=== PATIENT | female | born 1995 | race American Indian/Alaskan Native ===

== ENCOUNTER 2017-04-30 00:34 | Emergency (ER) | payer MEDICAID ==
[2017-04-30 02:48] LABS: Basophils % (Auto) 0.7 % (0.0-1.8); Eosinophils % (Auto) 0.9 % (0.0-4.3); Hematocrit 37.9 % (30.3-42.9); Hemoglobin 12.8 gm/dl (10.1-14.3); Mean Corpuscular HGB Conc 34 % (30-34); Mean Corpuscular Hemoglobin 31 pg (28-32); Mean Corpuscular Volume 92 fl (79-97); Platelet Count 280 K/mm3 (140-440); Red Blood Count 4.13 M/mm3 (3.65-5.03); Red Cell Distribution Width 13.1 % (13.2-15.2); White Blood Count 7.4 K/mm3 (4.5-11.0)
--- NOTE | 2017-04-30 04:24 | Ultrasound Report ---
FINAL REPORT PROCEDURE: US OB \T\lt; = 14 WEEKS FETUS TECHNIQUE: Real-time transabdominal sonography of the uterus, placenta, amniotic fluid, adnexa, and fetus was performed with image documentation. Measurements were obtained to determine age/size. M-mode Doppler was used to document heartbeat. CPT 90289 HISTORY: vag bleed COMPARISON: No prior studies are available for comparison. FINDINGS: There is a sac-like structure in the endometrium measuring 18.8 millimeters in diameter. There is no pole or yolk sac. The mean sac diameter corresponds to an estimated gestational age of 6 weeks and 6 days. The right ovary measures 2.5 x 1.5 x 1.3 centimeters. The left ovary measures 2.4 x 2 x 2.5 centimeters. There is no ovarian mass. There is no free pelvic fluid. The uterus measures 9.2 x 4.9 x 6.4 centimeters. IMPRESSION: There is an intrauterine gestational sac. However, no pole or yolk sac is seen. This could be an abnormal . Followup beta HCG measurements and/or ultrasound suggested.
--- NOTE | 2017-04-30 04:28 | Ultrasound Report ---
FINAL REPORT PROCEDURE: US OB TRANSVAGINAL TECHNIQUE: Real-time transvaginal sonography of the uterus, placenta, amniotic fluid, adnexa, and fetus was performed with image documentation. Measurements were obtained to determine age/size. M-mode Doppler was used to document heartbeat. HISTORY: vag bleed COMPARISON: No prior studies are available for comparison. FINDINGS: There is a sac-like structure in the endometrium measuring 18.8 millimeters in diameter. There is no pole or yolk sac. The mean sac diameter corresponds to an estimated gestational age of 6 weeks and 6 days. The right ovary measures 2.5 x 1.5 x 1.3 centimeters. The left ovary measures 2.4 x 2 x 2.5 centimeters. There is no ovarian mass. There is no free pelvic fluid. The uterus measures 9.2 x 4.9 x 6.4 centimeters. IMPRESSION: There is an intrauterine gestational sac. However, no pole or yolk sac is seen. This could be an abnormal . Followup beta HCG measurements and/or ultrasound suggested.
[2017-04-30 04:37] LABS: Bilirubin,Urine NEG (Negative); Blood,Urine MOD (Negative); Ketones,Urine NEG (Negative); Leukocyte Esterase,Urine NEG (Negative); Mucus,Urine 2+ /HPF; Nitrite,Urine NEG (Negative); Urobilinogen,Urine < 2.0 mg/dL (<2.0)
[2017-04-30 06:44] VITALS: BP 103/56
--- NOTE | 2017-04-30 07:17 | Emergency Department Report ---
HPI - General Chief Complaint: Vaginal Bleeding Time Seen by Provider: 04/30/17 07:04 - HPI HPI: Room 26 The patient is a 21-year-old female presented with a chief complaint of vaginal bleeding. The patient is and states all at work last night at 23:00 she noticed a gush of vaginal bleeding. Patient denies passing any tissue. Patient denies having abdominal pain. Patient currently denies any complaints Location: Genitourinary system Duration: [see above] Quality: Painless Severity: Moderate Modifying factors: [see above] Context: [see above] Mode of transportation: Unknown ED Past Medical Hx - Past Medical History Previous Medical History?: Yes Hx Diabetes: Yes (with ) Hx Asthma: Yes - Surgical History Past Surgical History?: Yes Additional Surgical History: EYE SURGERY - Family History Family history: no significant - Social History Smoking Status: Never Smoker Substance Use Type: None (denies illicit drug use) - Medications Home Medications: Home Medications Medication Instructions Recorded Confirmed Last Taken Type Pnv95/Ferrous Fumarate/FA 1 each PO QDAY 11/05/15 06/23/16 05/20/16 09:00 History [ Caplet] 1 Albuterol Sulfate [Albuterol 0.63% 0.63 mg IH TID PRN 05/22/16 06/23/16 12:00 History NEBS] 1 Valacyclovir HCl [Valtrex] 1,000 mg PO QDAY 06/23/16 06/23/16 Unknown History ED Review of Systems ROS: Stated complaint: VAGINAL BLEEDING Other details as noted in HPI Comment: All other systems reviewed and negative Constitutional: denies: chills, fever Eyes: denies: eye pain, eye discharge, vision change ENT: denies: ear pain, throat pain Respiratory: denies: cough, shortness of breath, wheezing Cardiovascular: denies: chest pain, palpitations Endocrine: no symptoms reported Gastrointestinal: denies: abdominal pain, nausea, diarrhea Genitourinary: abnormal menses. denies: urgency, dysuria, discharge Musculoskeletal: denies: joint swelling, arthralgia Skin: denies: rash, lesions Neurological: denies: headache, weakness, paresthesias Psychiatric: denies: anxiety, depression Hematological/Lymphatic: denies: easy bleeding, easy bruising Physical Exam - Physical Exam Vital Signs: Vital Signs 09/04/30/17 04/30/17 01:25 02:03 06:42 Temperature 98.0 F 98.0 F Pulse Rate 81 81 Respiratory 18 18 16 Rate Blood Pressure 118/61 118/61 Blood Pressure [Left] O2 Sat by Pulse 100 100 100 Oximetry 04/30/17 06:43 Temperature Pulse Rate 64 Respiratory 16 Rate Blood Pressure Blood Pressure 103/56 [Left] O2 Sat by Pulse 100 Oximetry Physical Exam: GENERAL: The patient is well-developed well-nourished female lying on stretcher not appearing to be in acute distress. [] HEENT: Normocephalic. Atraumatic. Extraocular motions are intact. Patient has moist mucous membranes. NECK: Supple. Trachea midline CHEST/LUNGS: Clear to auscultation. There is no respiratory distress noted. HEART/CARDIOVASCULAR: Regular. There is no tachycardia. There is no gallop rub or murmur. ABDOMEN: Abdomen is soft, nontender. Patient has normal bowel sounds. There is no abdominal distention. SKIN: There is no rash. There is no edema. There is no diaphoresis. NEURO: The patient is awake, alert, and oriented. The patient is cooperative. The patient has normal speech MUSCULOSKELETAL: There is no evidence of acute injury. ED Course Vital Signs 04/30/17 04/30/17 04/30/17 01:25 02:03 06:42 Temperature 98.0 F 98.0 F Pulse Rate 81 81 Respiratory 18 18 16 Rate Blood Pressure 118/61 118/61 Blood Pressure [Left] O2 Sat by Pulse 100 100 100 Oximetry 04/30/17 06:43 Temperature Pulse Rate 64 Respiratory 16 Rate Blood Pressure Blood Pressure 103/56 [Left] O2 Sat by Pulse 100 Oximetry ED Medical Decision Making - Lab Data Result diagrams: 04/30/17 02:15 Laboratory Tests 04/30/17 04/30/17 04/30/17 02:15 02:15 02:15 WBC 7.4 RBC 4.13 Hgb 12.8 Hct 37.9 MCV 92 MCH 31 MCHC 34 RDW 13.1 L Plt Count 280 Lymph % (Auto) 40.4 H [place] % (Auto) 6.6 Eos % (Auto) 0.9 Baso % (Auto) 0.7 Lymph # 3.0 [place] # 0.5 Eos # 0.1 Baso # 0.1 Seg Neutrophils % 51.4 Seg Neutrophils # 3.8 HCG, Quant 9069 H Urine Color Urine Turbidity Urine pH Ur Specific [place] Urine Protein Urine Glucose (UA) Urine Ketones Urine Blood Urine Nitrite Urine Bilirubin Urine Urobilinogen Ur Leukocyte Esterase Urine WBC (Auto) Urine RBC (Auto) U Epithel Cells (Auto) Urine Mucus Blood Type B POSITIVE Antibody Screen Negative 04/30/17 Unknown WBC RBC Hgb Hct MCV MCH MCHC RDW Plt Count Lymph % (Auto) [place] % (Auto) Eos % (Auto) Baso % (Auto) Lymph # [place] # Eos # Baso # Seg Neutrophils % Seg Neutrophils # HCG, Quant Urine Color Yellow Urine Turbidity Clear Urine pH 6.0 Ur Specific [place] 1.023 Urine Protein 30 mg/dl Urine Glucose (UA) Neg Urine Ketones Neg Urine Blood Mod Urine Nitrite Neg Urine Bilirubin Neg Urine Urobilinogen < 2.0 Ur Leukocyte Esterase Neg Urine WBC (Auto) 2.0 Urine RBC (Auto) 2.0 U Epithel Cells (Auto) 14.0 H Urine Mucus 2+ Blood Type Antibody Screen - Radiology Data Radiology results: report reviewed (pelvic ultrasound), image reviewed (pelvic ultrasound) Pelvic ultrasound (read by radiologist)-there is an intrauterine gestational sac. However no pole or yolk sac is seen. This could be an abnormal . Follow-up beta hCG measurements and/or ultrasound suggested. - Differential Diagnosis threatened , spontaneous , missed , ectopic pregnan Critical care attestation.: If time is entered above; I have spent that time in minutes in the direct care of this critically ill patient, excluding procedure time. ED Disposition Clinical Impression: Threatened Disposition: -01 TO HOME OR SELFCARE Is pt being admited?: No Does the pt Need Aspirin: No Condition: Stable Instructions: Threatened Miscarriage (ED) Additional Instructions: Return to the emergency department immediately should you develop worsening symptoms, fever, inability to tolerate food or liquid or any other concerns. Referrals: ERICA HERNANDEZ MD [Staff Physician] - 3-5 Days Time of Disposition: 07:19
== END 2017-04-30 07:50 | disposition home or self-care (01) ==
LOC: ED 00:34
DX: O20.0 Threatened abortion (principal); Z3A.01 Less than 8 weeks gestation of pregnancy; J45.909 Unspecified asthma, uncomplicated
CPT/HCPCS: 36415; 76801; 76817; 81001; 84702; 85025; 86850; 86900; 86901

== ENCOUNTER 2017-05-04 01:57 | Emergency (ER) | payer MEDICAID ==
[2017-05-04 03:07] LABS: Basophils % (Auto) 0.5 % (0.0-1.8); Eosinophils % (Auto) 0.6 % (0.0-4.3); Hematocrit 37.2 % (30.3-42.9); Hemoglobin 12.6 gm/dl (10.1-14.3); Mean Corpuscular HGB Conc 34 % (30-34); Mean Corpuscular Hemoglobin 31 pg (28-32); Mean Corpuscular Volume 92 fl (79-97); Platelet Count 258 K/mm3 (140-440); Red Blood Count 4.06 M/mm3 (3.65-5.03); Red Cell Distribution Width 12.7 % (13.2-15.2)
[2017-05-04 04:38] LABS: Anion Gap 15 mmol/L; Blood Urea Nitrogen 8 mg/dL (7-17); Calcium 8.6 mg/dL (8.4-10.2); Carbon Dioxide 22 mmol/L (22-30); Chloride 98.9 mmol/L (98-107); Glucose 98 mg/dL (65-100); Potassium 3.6 mmol/L (3.6-5.0); Sodium 132 mmol/L (137-145)
--- NOTE | 2017-05-04 06:20 | Emergency Department Report ---
ED Female HPI - General Chief complaint: Vaginal Bleeding Stated complaint: VAGINAL BLEED Time Seen by Provider: 05/04/17 06:17 Source: patient, EMS Mode of arrival: Stretcher Limitations: No Limitations - History of Present Illness Initial comments: The patient was seen here a few days ago for threaten miscarriage. She followed up with [facility]. She returns for recurrent bleeding and some crampy pain. She is not bleeding at this time. She is not complaining of pain at this time. The ultrasound has already been performed which shows an incomplete AB with sac in the lower uterine segment. Patient has no history of prior . MD Complaint: vaginal bleeding -: Gradual Severity: moderate Quality: cramping Consistency: now resolved Improves with: none Worsens with: none Are you Now?: No Associated Symptoms: denies other symptoms - Related Data Sexually active: Yes Home Medications Medication Instructions Recorded Confirmed Last Taken Pnv95/Ferrous Fumarate/FA 1 each PO QDAY 11/05/15 06/23/16 05/20/16 09:00 [ Caplet] 1 Albuterol Sulfate [Albuterol 0.63% 0.63 mg IH TID PRN 05/22/16 06/23/16 12:00 NEBS] 1 Valacyclovir HCl [Valtrex] 1,000 mg PO QDAY 06/23/16 06/23/16 Unknown Previous Rx's Medication Instructions Recorded Last Taken Type HYDROcodone/APAP 5-325 [[place] 1 each PO Q6HR PRN #7 tablet 05/04/17 Unknown Rx 5/325] Allergies Allergy/AdvReac Type Severity Reaction Status Date / Time butorphanol tartrate AdvReac Itching Verified 05/04/17 02:26 [From Stadol] ibuprofen [From Motrin] AdvReac Shortness Verified 05/04/17 02:26 of Breath ED Review of Systems ROS: Stated complaint: VAGINAL BLEED Other details as noted in HPI Constitutional: denies: chills, fever Eyes: denies: eye pain, eye discharge, vision change ENT: denies: ear pain, throat pain Respiratory: denies: cough, shortness of breath, wheezing Cardiovascular: denies: chest pain, palpitations Endocrine: no symptoms reported Gastrointestinal: denies: abdominal pain, nausea, diarrhea Genitourinary: as per HPI. denies: urgency, dysuria, discharge Musculoskeletal: denies: back pain, joint swelling, arthralgia Skin: denies: rash, lesions Neurological: denies: headache, weakness, paresthesias Psychiatric: denies: anxiety, depression Hematological/Lymphatic: denies: easy bleeding, easy bruising ED Past Medical Hx - Past Medical History Previous Medical History?: Yes Hx Hypertension: No Hx Congestive Heart Failure: No Hx Diabetes: Yes (with ) Hx Deep Vein Thrombosis: No Hx Renal Disease: No Hx Sickle Cell Disease: No Hx Seizures: No Hx Asthma: Yes Hx COPD: No Hx HIV: No - Surgical History Past Surgical History?: Yes Additional Surgical History: EYE SURGERY left - Social History Smoking Status: Never Smoker Substance Use Type: None - Medications Home Medications: Home Medications Medication Instructions Recorded Confirmed Last Taken Type Pnv95/Ferrous Fumarate/FA 1 each PO QDAY 11/05/15 06/23/16 05/20/16 09:00 History [ Caplet] 1 Albuterol Sulfate [Albuterol 0.63% 0.63 mg IH TID PRN 05/22/16 06/23/16 12:00 History NEBS] 1 Valacyclovir HCl [Valtrex] 1,000 mg PO QDAY 06/23/16 06/23/16 Unknown History HYDROcodone/APAP 5-325 [[place] 1 each PO Q6HR PRN #7 tablet 05/04/17 Unknown Rx 5/325] ED Physical Exam - General Limitations: No Limitations General appearance: alert, in no apparent distress - Head Head exam: Present: atraumatic, normocephalic - Eye Eye exam: Present: normal appearance. Absent: scleral icterus - ENT ENT exam: Present: mucous membranes moist - Neck Neck exam: Present: normal inspection - Respiratory Respiratory exam: Present: normal lung sounds bilaterally. Absent: respiratory distress - Cardiovascular Cardiovascular Exam: Present: regular rate, normal rhythm. Absent: systolic murmur, diastolic murmur, rubs, gallop - GI/Abdominal GI/Abdominal exam: Present: soft, normal bowel sounds. Absent: distended, tenderness, guarding, rebound, rigid - External exam: Present: other (no active bleeding) - Extremities Exam Extremities exam: Present: normal inspection - Back Exam Back exam: Present: normal inspection - Neurological Exam Neurological exam: Present: alert, oriented X3, CN II-XII intact. Absent: motor sensory deficit - Psychiatric Psychiatric exam: Present: normal affect, normal mood - Skin Skin exam: Present: warm, dry, intact, normal color. Absent: rash ED Course Vital Signs 05/04/17 05/04/17 05/04/17 02:20 02:22 02:26 Temperature 98.1 F 98.1 F Pulse Rate 73 74 Respiratory 18 18 Rate Blood Pressure 108/39 108/39 Blood Pressure [Right] O2 Sat by Pulse 99 99 Oximetry 05/04/17 05/04/17 02:34 05:49 Temperature 98.1 F Pulse Rate 65 Respiratory 18 16 Rate Blood Pressure Blood Pressure 89/54 [Right] O2 Sat by Pulse 99 99 Oximetry - Reevaluation(s) Reevaluation #1: Patient will be given a dose of Cytotec. She is instructed to follow up with [facility]. 05/04/17 07:10 ED Medical Decision Making - Lab Data Result diagrams: 05/04/17 02:52 05/04/17 04:04 Laboratory Results - last 24 hr 05/04/17 05/04/17 05/04/17 02:25 02:52 02:52 WBC 10.0 RBC 4.06 Hgb 12.6 Hct 37.2 MCV 92 MCH 31 MCHC 34 RDW 12.7 L Plt Count 258 Lymph % (Auto) 25.7 [place] % (Auto) 6.9 Eos % (Auto) 0.6 Baso % (Auto) 0.5 Lymph # 2.6 [place] # 0.7 Eos # 0.1 Baso # 0.1 Seg Neutrophils % 66.3 Seg Neutrophils # 6.6 Sodium Potassium Chloride Carbon Dioxide Anion Gap BUN Creatinine Estimated GFR BUN/Creatinine Ratio Glucose Calcium HCG, Quant 5373 H Blood Type B POSITIVE Antibody Screen Negative 05/04/17 04:04 WBC RBC Hgb Hct MCV MCH MCHC RDW Plt Count Lymph % (Auto) [place] % (Auto) Eos % (Auto) Baso % (Auto) Lymph # [place] # Eos # Baso # Seg Neutrophils % Seg Neutrophils # Sodium 132 L Potassium 3.6 Chloride 98.9 Carbon Dioxide 22 Anion Gap 15 BUN 8 Creatinine 0.5 L Estimated GFR > 60 BUN/Creatinine Ratio 16.00 Glucose 98 Calcium 8.6 HCG, Quant Blood Type Antibody Screen Critical care attestation.: If time is entered above; I have spent that time in minutes in the direct care of this critically ill patient, excluding procedure time. ED Disposition Clinical Impression: Incomplete Disposition: DC-01 TO HOME OR SELFCARE Is pt being admited?: No Does the pt Need Aspirin: No Condition: Stable Instructions: Threatened Miscarriage (ED) Additional Instructions: Medication should cause you to pass the sac. There may be some associated bleeding. Return if you have significant bleeding or any acute changes as necessary. Otherwise follow-up with [facility] physician. Prescriptions: HYDROcodone/APAP 5-325 [[place] 5/325] 1 each PO Q6HR PRN #7 tablet PRN Reason: Pain Referrals: SRIDHAR ZARATE JR, MD [Primary Care Provider] - 3-5 Days [facility] [Provider Group] - 24 Hours Time of Disposition: 07:13
--- NOTE | 2017-05-04 06:25 | Ultrasound Report ---
FINAL REPORT EXAM: US OB TRANSVAGINAL HISTORY: w/ vag bleed TECHNIQUE: Early obstetrical ultrasound was performed. PRIORS: None. FINDINGS: There is an elongated abnormal appearing sac-like structure in the lower uterine segment. There is another cystic/cysts sac-like area in the fundus which has an irregular appearance and contains low level echoes. No pole or yolk sac seen. Appearance is suspicious for spontaneous in progress. Overall uterine dimensions are 9.8 x 4.7 x 6.2 cm. The right ovary measures 2.9 x 1.8 x 1.9 cm. The left ovary measures 3.9 x 2.2 x 2.2 cm. There is blood flow to both ovaries. There is a complex cyst in the left ovary which may be corpus luteal cyst. It measures about 1.8 cm. IMPRESSION: Findings, as described above, most likely reflect spontaneous in progress.
--- NOTE | 2017-05-04 06:28 | Ultrasound Report ---
FINAL REPORT EXAM: US OB \T\lt; = 14 WEEKS FETUS HISTORY: w/ vag bleed TECHNIQUE: Transabdominal obstetrical ultrasound read in conjunction with transvaginal study performed concurrently. PRIORS: 04/30/2017 FINDINGS: There is an elongated abnormal appearing sac-like structure in the lower uterine segment. There is another cystic/cysts sac-like area in the fundus which has an irregular appearance and contains low level echoes. No pole or yolk sac seen. Appearance is suspicious for spontaneous in progress. Overall uterine dimensions are 9.8 x 4.7 x 6.2 cm. The right ovary measures 2.9 x 1.8 x 1.9 cm. The left ovary measures 3.9 x 2.2 x 2.2 cm. There is blood flow to both ovaries. There is a complex cyst in the left ovary which may be corpus luteal cyst. It measures about 1.8 cm. IMPRESSION: Findings, as described above, are compatible with spontaneous in progress.
[2017-05-04] MEDS ORDERED: CYTOTEC PO ONE (07:03)
[2017-05-04 07:58] VITALS: BP 103/65
== END 2017-05-04 07:59 | disposition home or self-care (01) ==
LOC: ED 01:57
DX: O03.4 Incomplete spontaneous abortion without complication (principal); Z88.6 Allergy status to analgesic agent; Z88.8 Allergy status to other drugs, medicaments and biological substances
CPT/HCPCS: 36415; 76801; 76817; 80048; 84702; 85025; 86850; 86900; 86901; 99284

== ENCOUNTER 2017-08-12 13:25 | Emergency (ER) | payer SELFPAY ==
--- NOTE | 2017-08-12 20:53 | Emergency Department Report ---
Minor Respiratory - HPI Chief Complaint: Upper Respiratory Infection Stated Complaint: COUGH/CONGESTION Time Seen by Provider: 08/12/17 20:17 Duration: 5 Days Pain Location: Throat Severity: mild Minor Respiratory: Yes Rhinorrhea, Yes Sore Throat, Yes Able to Tolerate Fluids , Yes Cough, Yes Sick Contacts, No Ear Pain, No Hemoptysis, No Chest Pain, No Shortness of Breath, No Fever Other History: This is a 21 y.o female presents with congestion, cough, and runny nose. 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 She is taking tylenol cold and mucous with minimal improvement. Denies chest pain, SOB , wheezing, muscle aches, and abdominal pain. ED Review of Systems ROS: Stated complaint: COUGH/CONGESTION Other details as noted in HPI Constitutional: see HPI. denies: chills, diaphoresis, fever, malaise, weakness Eyes: denies: eye pain, eye discharge, vision change ENT: throat pain, congestion. denies: ear pain, dental pain, hearing loss, epistaxis Respiratory: see HPI, cough. denies: orthopnea, shortness of breath, SOB with exertion, SOB at rest, stridor, wheezing Cardiovascular: denies: chest pain, palpitations Gastrointestinal: denies: abdominal pain, nausea, diarrhea Musculoskeletal: denies: back pain, joint swelling, arthralgia Neurological: denies: headache, weakness, paresthesias ED Past Medical Hx - Past Medical History Previous Medical History?: Yes Hx Hypertension: No Hx Congestive Heart Failure: No Hx Diabetes: Yes (with , gestational) Hx Deep Vein Thrombosis: No Hx Renal Disease: No Hx Sickle Cell Disease: No Hx Seizures: No Hx Asthma: Yes Hx COPD: No Hx HIV: No Additional medical history: Vaginal dleivery 06-17-2016 - Surgical History Past Surgical History?: Yes Additional Surgical History: EYE SURGERY left - Social History Smoking Status: Never Smoker Substance Use Type: Alcohol, Marijuana, Prescribed - Medications Home Medications: Home Medications Medication Instructions Recorded Confirmed Last Taken Type Pnv No.95/Ferrous Fum/Folic AC 1 each PO QDAY 11/05/15 06/23/16 05/20/16 09:00 History [ Caplet] 1 Albuterol Sulfate [Albuterol 0.63% 0.63 mg IH TID PRN 05/22/16 06/23/16 12:00 History NEBS] 1 Valacyclovir HCl [Valtrex] 1,000 mg PO QDAY 06/23/16 06/23/16 Unknown History HYDROcodone/APAP 5-325 [[place] 1 each PO Q6HR PRN #7 tablet 05/04/17 Unknown Rx 5/325] Benzonatate 200 mg PO TID PRN #30 capsule 08/12/17 Unknown Rx Fluticasone [Flonase] 1 spray NS QDAY #1 bottle 08/12/17 Unknown Rx Minor Respiratory Exam - Exam General: Vital signs noted. No distress. Alert and acting appropriately. HEENT: Yes Pharyngeal Erythema, Yes Moist Mucous Membranes, Yes Rhinorrhea, No Pharyngeal Exudates (tonsils enlarged), No Conjuctival Injection, No Frontal Tenderness, No Maxillary Tenderness Ear: Neither TM Bulge, Neither TM Erythema, Neither EAC Pain, Neither EAC Discharge Neck: Yes Supple, No Adenopathy Lungs: Yes Good Air Exchange, Yes Cough, No Wheezes, No Ronchi, No Stridor, No Labored Respirations, No Retractions, No Use of Accessory Muscles, No Other Abnormal Lung Sounds Heart: Yes Regular, No Murmur Abdomen: Yes Normal Bowel Sounds, No Tenderness, No Peritoneal Signs Skin: No Rash, No Edema Neurologic: Alert and oriented, no deficits. Musculoskeletal: Unremarkable. ED Course Vital Signs 08/12/17 13:47 Temperature 98.4 F Pulse Rate 87 Respiratory 16 Rate Blood Pressure 121/75 O2 Sat by Pulse 98 Oximetry ED Medical Decision Making - Medical Decision Making 21 y.o. female presents with congestion, cough, and runny nose for 5 days. Taking tylenol cold and mucous for 3 days. Sick contacts and work. Negative influenza and rapid strep. Started on flonase and benzonate continue OTC cold & flu medicine. Discussed S/S of when to return to ER and nonpharm measures. Follow-up with PCP if symptoms worsen or exceed expected recovery. Critical care attestation.: If time is entered above; I have spent that time in minutes in the direct care of this critically ill patient, excluding procedure time. ED Disposition Clinical Impression: URI (upper respiratory infection) Qualifiers: URI type: acute nasopharyngitis (common cold) Qualified Code(s): J00 - Acute nasopharyngitis [common cold] Disposition: DC-01 TO HOME OR SELFCARE Is pt being admited?: No Does the pt Need Aspirin: No Condition: Stable Instructions: Upper Respiratory Infection (ED), Cold Symptoms (ED) Additional Instructions: Wash hands frequently. The cough can last for 2-3 weeks. Use tylenol and ibuprofen should be taken with regular fluid intake. Follow up with primary care provider. Seek medical attention if fever, headache, wheezing, or chest symptoms worsen. If drowsy or confused in the short term or if cough last longer than 4 weeks. Prescriptions: Benzonatate 200 mg PO TID PRN #30 capsule PRN Reason: Cough Fluticasone [Flonase] 1 spray NS QDAY #1 bottle Referrals: SRIDHAR ZARATE JR, MD [Primary Care Provider] - 3-5 Days [facility] [Outside] - 3-5 Days [facility] [Outside] - 3-5 Days [facility] [Outside] - 3-5 Days Forms: Work/School Release Form(ED) Time of Disposition: 22:00 Print Language: MOZAMBICAN
[2017-08-12 21:36] VITALS: BP 108/65
== END 2017-08-12 22:19 | disposition home or self-care (01) ==
LOC: ED 13:25
DX: J00 Acute nasopharyngitis [common cold] (principal); J45.909 Unspecified asthma, uncomplicated; F12.10 Cannabis abuse, uncomplicated; Z88.8 Allergy status to other drugs, medicaments and biological substances; Z88.6 Allergy status to analgesic agent
CPT/HCPCS: 87116; 87400; 87430; 99282

== ENCOUNTER 2017-09-18 09:32 | Emergency (ER) | payer OTHER ==
[2017-09-18 09:42] VITALS: BP 110/64
[2017-09-18 10:48] LABS: Bilirubin,Urine NEG (Negative); Blood,Urine NEG (Negative); Color,Urine Yellow (Yellow); Mucus,Urine 1+ /HPF; Nitrite,Urine NEG (Negative); Protein,Urine <15 mg/dL mg/dL (Negative)
[2017-09-18 10:55] LABS: HCG Qualitative,Urine Positive (Negative); WBC,Urine < 1.0 /HPF (0.0-6.0)
[2017-09-18] MEDS ORDERED: ZOFRAN IM ONE (13:17)
--- NOTE | 2017-09-18 13:22 | Emergency Department Report ---
ED Headache HPI - General Chief Complaint: Headache Stated Complaint: HEADACHE Time Seen by Provider: 09/18/17 13:12 Source: patient - History of Present Illness Initial Comments: Patient is 21 years old female, 3 para 1 with one miscarriage. History of migraine headache. Presented to the ER with his 1 day history of headache similar to previous headache associated with nausea and vomiting. Patient stated that lights bother her. Patient denied any fever, stiff neck, weakness, numbness or tingling sensation. Patient denied any bowel or bladder incontinence. Patient denied any abdominal pain or vaginal bleeding. Timing/Duration: 24 hours Quality: moderate Recent Head Trauma: no recent headache/trauma, frequent headaches, chronic headaches Modifying Factors: improves with: exposure to light. worse with: cold therapy, immobilization, medication, movement, rest, other Associated Symptoms: nausea/vomiting. denies: denies symptoms, confusion, fatigue, facial pain, fever/chills, flushing, loss of consciousness, nasal congestion, nasal drainage, numbness in legs/feet, rash, seizures, sinus infection, stiff neck, vision changes, weakness, other Allergies/Adverse Reactions: Allergies butorphanol tartrate [From Stadol] Adverse Reaction (Verified 05/04/17 02:26) Itching ibuprofen [From Motrin] Adverse Reaction (Verified 05/04/17 02:26) Shortness of Breath Home Medications: Ambulatory Orders Pnv No.95/Ferrous Fum/Folic AC [ Caplet] 1 each PO QDAY 11/05/15 Albuterol Sulfate [Albuterol 0.63% NEBS] 0.63 mg IH TID PRN 05/22/16 Valacyclovir HCl [Valtrex] 1,000 mg PO QDAY 06/23/16 HYDROcodone/APAP 5-325 [[place] 5/325] 1 each PO Q6HR PRN #7 tablet 05/04/17 Benzonatate 200 mg PO TID PRN #30 capsule 08/12/17 Fluticasone [Flonase] 1 spray NS QDAY #1 bottle 08/12/17 ED Review of Systems ROS: Stated complaint: HEADACHE Other details as noted in HPI Comment: All other systems reviewed and negative Constitutional: denies: chills, fever ENT: denies: ear pain Respiratory: denies: cough, orthopnea Gastrointestinal: denies: abdominal pain, nausea, vomiting, diarrhea, constipation Neurological: headache. denies: weakness, numbness, paresthesias ED Past Medical Hx - Past Medical History Previous Medical History?: Yes Hx Hypertension: No Hx Congestive Heart Failure: No Hx Diabetes: Yes (with , gestational) Hx Deep Vein Thrombosis: No Hx Renal Disease: No Hx Sickle Cell Disease: No Hx Seizures: No Hx Asthma: Yes Hx COPD: No Hx HIV: No Additional medical history: Vaginal dleivery 06-17-2016 - Surgical History Past Surgical History?: Yes Additional Surgical History: EYE SURGERY left - Social History Smoking Status: Former Smoker Substance Use Type: Non Opiate Pain - Medications Home Medications: Home Medications Medication Instructions Recorded Confirmed Last Taken Type Pnv No.95/Ferrous Fum/Folic AC 1 each PO QDAY 11/05/15 06/23/16 05/20/16 09:00 History [ Caplet] 1 Albuterol Sulfate [Albuterol 0.63% 0.63 mg IH TID PRN 05/22/16 06/23/16 12:00 History NEBS] 1 Valacyclovir HCl [Valtrex] 1,000 mg PO QDAY 06/23/16 06/23/16 Unknown History HYDROcodone/APAP 5-325 [[place] 1 each PO Q6HR PRN #7 tablet 05/04/17 Unknown Rx 5/325] Benzonatate 200 mg PO TID PRN #30 capsule 08/12/17 Unknown Rx Fluticasone [Flonase] 1 spray NS QDAY #1 bottle 08/12/17 Unknown Rx ED Physical Exam - General Limitations: No Limitations General appearance: alert, in no apparent distress - Head Head exam: Present: atraumatic, normocephalic - ENT ENT exam: Present: normal exam - Neck Neck exam: Present: normal inspection, full ROM, lymphadenopathy. Absent: tenderness, meningismus - Respiratory Respiratory exam: Present: normal lung sounds bilaterally. Absent: respiratory distress, wheezes, rales - Cardiovascular Cardiovascular Exam: Present: regular rate, normal rhythm, normal heart sounds - GI/Abdominal GI/Abdominal exam: Present: soft, normal bowel sounds. Absent: distended, tenderness, guarding, rebound, rigid, organomegaly, mass, bruit, pulsatile mass , hernia - Back Exam Back exam: Present: normal inspection, full ROM. Absent: tenderness, CVA tenderness (R), CVA tenderness (L) - Neurological Exam Neurological exam: Present: alert, oriented X3, CN II-XII intact, normal gait - Skin Skin exam: Present: warm, intact, normal color. Absent: cyanosis ED Course Vital Signs 09/18/17 09:39 Temperature 98.2 F Pulse Rate 98 H Respiratory 20 Rate Blood Pressure 110/64 O2 Sat by Pulse 99 Oximetry Critical care attestation.: If time is entered above; I have spent that time in minutes in the direct care of this critically ill patient, excluding procedure time. ED Disposition Clinical Impression: Migraine headache, Disposition: DC-01 TO HOME OR SELFCARE Is pt being admited?: No Condition: Stable Instructions: Migraine Headache (ED), (ED) Referrals: SRIDHAR ZARATE JR, MD [Primary Care Provider] - 3-5 Days
[2017-09-18] MEDS ORDERED: TYLENOL PO ONE (13:23)
== END 2017-09-18 13:39 | disposition home or self-care (01) ==
LOC: ED 09:32
DX: O26.899 Other specified pregnancy related conditions, unspecified trimester (principal); G43.909 Migraine, unspecified, not intractable, without status migrainosus; O99.519 Diseases of the respiratory system complicating pregnancy, unspecified trimester; Z87.891 Personal history of nicotine dependence; Z88.8 Allergy status to other drugs, medicaments and biological substances
CPT/HCPCS: 81001; 81025; 96372; 99283; J2405

== ENCOUNTER 2018-03-21 10:42 | Outpatient (CLI) | payer MEDICAID ==
[2018-03-21 11:29] VITALS: BP 113/65
[2018-03-21 13:28] LABS: Bacteria,Urine 2+ /HPF (Negative); Mucus,Urine FEW /HPF
[2018-03-21 14:08] LABS: Bilirubin,Urine Negative (Negative); Blood,Urine Negative (Negative); Color,Urine Straw (Yellow)
[2018-03-21] MEDS ORDERED: LACTATED RINGERS 500 ML IV ONE (16:45)
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
== END 2018-03-21 19:30 | disposition home or self-care (01) ==
LOC: TRG 10:42 → LD 10:44 → TRG 19:30
PROVIDERS: ATTEND Obstetrics & Gynecology
DX: O47.03 False labor before 37 completed weeks of gestation, third trimester (principal); Z87.891 Personal history of nicotine dependence; Z3A.30 30 weeks gestation of pregnancy
CPT/HCPCS: 59025; 76815; 81001

== ENCOUNTER 2018-04-07 05:35 | Outpatient (CLI) | payer MEDICAID ==
[2018-04-07] MEDS ORDERED: LACTATED RINGERS 500 ML IV ONE (06:58)
[2018-04-07 07:53] LABS: Bacteria,Urine 3+ /HPF (Negative); Bilirubin,Urine NEG (Negative); Blood,Urine NEG (Negative); Color,Urine Yellow (Yellow); Protein,Urine <15 mg/dL mg/dL (Negative); Urobilinogen,Urine < 2.0 mg/dL (<2.0)
[2018-04-07] MEDS ORDERED: CELESTONE SOLUSPAN IM ONE (08:42)
[2018-04-07] MEDS ORDERED: LACTATED RINGERS 1,000 ML IV SCH (09:00)
[2018-04-07] MEDS: BRETHINE SUB-Q PRN ×3 (09:07→11:41)
[2018-04-07] MEDS ORDERED: ROCEPHIN 1,000 MG in NACL 0.9% 50 ML IV SCH (10:00)
[2018-04-07 10:02] VITALS: BP 120/64
--- NOTE | 2018-04-07 12:54 | Event Note ---
22yo 33wks 1 day managed for contractions. She was treated for a UTI with Rocephin and had received IVF. Her cervix remains unchanged. Closed/ soft/high. She has received betamethasone and her fibronectin is negative. She has a history of induction for PPROM at 36 weeks. Plan 1. G/C, GBS done. 2. Cervical recheck unchanged - explained to patient she is not in labor but will give second dose of betamethasone due to the contractions. 3. Patient will return tomorrow 9am for steroid injection. She was given labor precautions.
[2018-04-08] MEDS ORDERED: CELESTONE SOLUSPAN IM ONE (09:00)
== END 2018-04-07 13:30 | disposition home or self-care (01) ==
LOC: TRG 05:35
PROVIDERS: ATTEND Obstetrics & Gynecology
DX: O62.8 Other abnormalities of forces of labor (principal); O99.513 Diseases of the respiratory system complicating pregnancy, third trimester; J45.909 Unspecified asthma, uncomplicated; Z3A.34 34 weeks gestation of pregnancy
CPT/HCPCS: 36415; 81001; 82731; 87116; 87591; 96360; 96361; 96372; J0696; J0702; J3105; J7120

== ENCOUNTER 2018-04-08 09:29 | Outpatient (CLI) | payer MEDICAID ==
[2018-04-08] MEDS ORDERED: CELESTONE SOLUSPAN IM ONE (09:35)
--- NOTE | 2018-04-08 17:05 | Event Note ---
Date: 04/08/18 Patient here for Betamethasone injection. Received first injection yesterday here in triage when she came in for contractions at 33 weeks gestation. Pt. received injection today without adverse reaction. Patient to follow up at [facility] as scheduled this week.
== END 2018-04-08 10:00 | disposition home or self-care (01) ==
LOC: TRG 09:29
PROVIDERS: ATTEND Obstetrics & Gynecology
DX: O47.03 False labor before 37 completed weeks of gestation, third trimester (principal); O99.513 Diseases of the respiratory system complicating pregnancy, third trimester; Z3A.33 33 weeks gestation of pregnancy; Z87.891 Personal history of nicotine dependence; Z88.6 Allergy status to analgesic agent
CPT/HCPCS: 96372; J0702

== ENCOUNTER 2018-04-09 00:58 | Observation (INO) | payer MEDICAID ==
[2018-04-09] MEDS ORDERED: LACTATED RINGERS 1,000 ML IV ONE (01:22)
[2018-04-09 02:00] LABS: Bilirubin,Urine NEG (Negative); Blood,Urine NEG (Negative); Color,Urine Yellow (Yellow); Mucus,Urine FEW /HPF; Protein,Urine <15 mg/dL mg/dL (Negative); Urobilinogen,Urine < 2.0 mg/dL (<2.0)
[2018-04-09] MEDS ORDERED: BRETHINE SUB-Q ONE (05:34)
[2018-04-09] MEDS ORDERED: BRETHINE ONE (05:41)
--- NOTE | 2018-04-09 06:33 | Ultrasound Report ---
FINAL REPORT EXAM: US OB LIMITED HISTORY: CTX/VARIABLE DECELS; KAREN BPP TECHNIQUE: A limited OB sonogram was obtained for evaluation of the amniotic fluid index. FINDINGS: The fetus is in cephalic presentation. The KAREN is 12.5 cm which is normal. The placenta is anterior in position is grade 1. The heart rate is 141 BPM. IMPRESSION: Normal KAREN of 12.5 cm. The heart rate is 141 BPM.
--- NOTE | 2018-04-09 06:36 | Ultrasound Report ---
FINAL REPORT EXAM: US OB BPP WO NON-STRESS HISTORY: CTX/VARIABLE DECELS; KAREN BPP TECHNIQUE: A limited OB sonogram was performed for evaluation of the biophysical profile. FINDINGS: For breathing movements, a score of 0 out of 0 was obtained. For movements, a score of 0 out of 0 was obtained. For posture in tone, a score of 2 out of 2 was obtained. For qualitative amniotic fluid volume, a score of 2 out of 2 was obtained. The heart rate is 141 BPM. IMPRESSION: Biophysical profile score of 4 out of 8. The heart rate is 141 BPM.
[2018-04-09] MEDS ORDERED: COLACE PO PRN (07:18)
[2018-04-09] MEDS ORDERED: TYLENOL PO PRN (07:18)
[2018-04-09] MEDS ORDERED: ZOFRAN IV ONE (08:00)
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
[2018-04-09] MEDS ORDERED: PRENATAL VITAMIN PO SCH (10:00)
[2018-04-09 11:25] LABS: Amphetamine Screen,Urine PRESUMPTIVE NEGATIVE; Benzodiazepines Screen,Urine PRESUMPTIVE NEGATIVE; Cocaine Screen,Urine PRESUMPTIVE NEGATIVE; Methadone Screen,Urine PRESUMPTIVE NEGATIVE; Opiate Screen,Urine PRESUMPTIVE NEGATIVE
[2018-04-09 12:17] LABS: Cannabinoid Screen,Urine PRESUMPTIVE POSITIVE
--- NOTE | 2018-04-09 20:50 | Event Note ---
Date: 04/09/18 Patient walked to bathroom to void. A few small spots of blood seen on floor. Pt. reports "pressure" in lower pelvis and lower back and and abdominal pain. Speculum exam performed. A small amount of blood seen in posterior vagina but no active bleeding seen. SVE 1.5/75/-1. No leaking of water. No pooling of blood. Irregular contractions noted per monitor. Stat US ordered. Consulted with Dr. Martinez regarding patient and he orders to give patient Procardia 10 mg po single dose now. Procardia order put in. Will update Dr. Martinez when US result is available.
[2018-04-09] MEDS ORDERED: PROCARDIA*For Tocolysis only PO ONE (20:55)
[2018-04-09] MEDS ORDERED: PROCARDIA XL PO SCH (21:00)
--- NOTE | 2018-04-09 21:47 | Event Note ---
Date: 04/09/18 BPP 6/8 (0 for breathing movements). Patient has received Procardia 10 mg po as recommended by Dr. Martinez. Informed Dr. Martinez of BPP of 01/12 and that Procardia was given. UDS positive for marijuana. EFM continues.
--- NOTE | 2018-04-09 23:21 | Ultrasound Report ---
FINAL REPORT EXAM: US OB BPP WO NON-STRESS HISTORY: vaginal bleeding, decreased movement TECHNIQUE: Grayscale imaging was performed for the purpose of evaluating of biophysical profile. Comparison: Biophysical profile performed earlier today at 5:34 a.m. FINDINGS: heart rate is measured at 142 beats per minute. KAREN largest pocket is measured at 5.5 centimeters. For tone score 2/2 For breathing score 0/2 For movements score 2/2 For amnionic fluid score 2/2 Total biophysical profile score 6/8 IMPRESSION: 1. Biophysical profile score of 6/8. 2. heart rate is measured at 142 beats per minute.
[2018-04-10] MEDS ORDERED: ZOFRAN PO PRN (10:00)
--- NOTE | 2018-04-10 11:26 | Ultrasound Report ---
ULTRASOUND BIOPHYSICAL PROFILE: History: BPP 01/12 Technique: Transabdominal ultrasound with Doppler interrogation. 2 - breathing movements 2 - movements 2 - posture and tone 2 - Qualitative amniotic fluid volume 8 - TOTAL SCORE OF POSSIBLE 8 Heart Rate (bpm) 136
[2018-04-10 11:29] VITALS: BP 100/55
--- NOTE | 2018-04-10 14:36 | Discharge Summary ---
Providers - Providers Date of Admission: 04/10/18 08:33 Date of discharge: 04/10/18 Attending physician: BRITTANY MARTELL Primary care physician: BRITTANY MARTELL Hospitalization Reason for admission: observation Delivery: other (UNDELIVERED) Hospital course: 22yo 33wks presented for contractions and monitoring. A BPP was done revealing 4/8 (-2 breathing -2 movement). The next BPP revealed 6/8 (- 2 breathing). Today's BPP was 8/8. The patient report good movement. She will be discharged gisela with weekly BPPs in office. Condition at discharge: Stable Disposition: DC-01 TO HOME OR SELFCARE - Discharge Diagnoses (1) 33 weeks gestation of Status: Acute Plan - Provider Discharge Summary Activity: routine, other (no lifting more than 10 lbs) Diet: routine Instructions: other Additional instructions: [] Smoking cessation referral if applicable(refer to patient education folder for contact #) [] Refer to [facility] Booklet Call your doctor immediately for: * contractions every 5 min * vaginal bleeding * loss of fluid/rupture membranes * decrease movement - Follow up plan Follow up: BRITTANY MARTELL [Primary Care Provider] - 7 Days
== END 2018-04-10 16:11 | disposition home or self-care (01) ==
LOC: TRG 00:58 → LD 00:59 → TRG 00:59 → OBSVTOIN 04-10 08:33 → INTOOBSV 04-10 08:33
PROVIDERS: ADMIT Obstetrics & Gynecology; ATTEND Obstetrics & Gynecology
DX: O60.03 Preterm labor without delivery, third trimester (principal); O99.513 Diseases of the respiratory system complicating pregnancy, third trimester; J45.909 Unspecified asthma, uncomplicated; Z3A.33 33 weeks gestation of pregnancy; Z79.899 Other long term (current) drug therapy
CPT/HCPCS: 76815; 76819; 80307; 81001; 96372; 96374; G0378; J2405; J3105; J7120; Q0162

== ENCOUNTER 2018-04-12 20:21 | Observation (INO) | payer MEDICAID ==
--- NOTE | 2018-04-12 23:28 | Ultrasound Report ---
FINAL REPORT PROCEDURE: US OB BPP WO NON-STRESS TECHNIQUE: Real-time limited sonographic examination was performed for evaluation of size, position, heartbeat, fluid volume for each fetus with image documentation (1 or more fetuses). CPT 28125 HISTORY: vaginal blee ding COMPARISON: No prior studies are available for comparison. FINDINGS: Amniotic fluid index is 10.3 centimeters. Placenta is anterior and grade 2. Heart rate is 142 beats per minute. The biophysical profile: breathing movements: 2. movements: 2. posterior and tone: 2. Amniotic fluid volume: 2. Total score: 8/8. IMPRESSION: Normal biophysical profile.
--- NOTE | 2018-04-12 23:29 | Ultrasound Report ---
FINAL REPORT PROCEDURE: US OB BPP WO NON-STRESS TECHNIQUE: Real-time limited sonographic examination was performed for evaluation of size, position, heartbeat, fluid volume for each fetus with image documentation (1 or more fetuses). CPT 43888 HISTORY: vaginal blee ding COMPARISON: No prior studies are available for comparison. FINDINGS: Amniotic fluid index is 10.3 centimeters. Placenta is anterior and grade 2. Heart rate is 142 beats per minute. The biophysical profile: breathing movements: 2. movements: 2. posterior and tone: 2. Amniotic fluid volume: 2. Total score: 8/8. IMPRESSION: Normal biophysical profile.
[2018-04-13] MEDS ORDERED: BENADRYL PO PRN (01:10)
[2018-04-13] MEDS ORDERED: COLACE PO PRN (01:10)
[2018-04-13] MEDS ORDERED: TYLENOL PO PRN (01:10)
[2018-04-13] MEDS ORDERED: PROCARDIA*For Tocolysis only PO NR (01:10)
[2018-04-13] MEDS ORDERED: PROCARDIA*For Tocolysis only ONE (01:11)
[2018-04-13] MEDS ORDERED: LACTATED RINGERS 1,000 ML ONE (01:12)
--- NOTE | 2018-04-13 01:19 | History and Physical Report ---
History of Present Illness Chief complaint: vaginal spotting History of present illness: 22yo 33 6/7 weeks admitted for vaginal spotting while taking a shower. She reports good movement and no loss of fluid. She has been admitted and observed for contractions several times this . Her history is significant for PPROM at 36 weeks last . She is a patient at [facility]. Past History - Obstetrical History : 3 Medications and Allergies Allergies Allergy/AdvReac Type Severity Reaction Status Date / Time ibuprofen [From Motrin] AdvReac Severe Shortness Verified 04/08/18 09:33 of Breath butorphanol tartrate AdvReac Itching Verified 05/04/17 02:26 [From Stadol] Home Medications Medication Instructions Recorded Confirmed Last Taken Type Pnv No.95/Ferrous Fum/Folic AC 1 each PO QDAY 11/05/15 04/09/18 04/08/18 History [ Caplet] Ferrous Sulfate [Feosol] 325 mg PO QDAY 04/07/18 04/09/18 04/04/18 History Active Meds: Active Medications Acetaminophen (Tylenol) 650 mg PO Q4H PRN PRN Reason: Pain MILD(1-3)/Fever >100.5/SINGH Nifedipine (Procardia*For Tocolysis Only*) 20 mg PO ONCE NR Stop: 04/13/18 02:11 - Vital Signs Vital signs: Vital Signs Pulse BP 96 H 115/66 04/12/18 20:37 04/12/18 20:37 Temp Pulse Resp BP Pulse Ox 96 H 115/66 04/12/18 20:37 04/12/18 20:37 - Physical Exam Extremities: Positive: normal - Obstetrical Cervical Dilatation: 1 Cervical Effacement Percentage: 70 station: -3 Results All other labs normal. Assessment and Plan - Patient Problems (1) Vaginal spotting Current Visit: Yes Status: Acute Plan to address problem: Ultrasound for evaluation of placenta, KAREN, BPP Monitor for maternal bleeding (2) contractions Current Visit: Yes Status: Acute Plan to address problem: Procardia for tocolysis. Cervix remains unchanged since last admission. (3) 33 weeks gestation of Current Visit: No Status: Acute Plan to address problem: Admit for observation due to vaginal spotting, contractions and possible incidental placental verma on ultrasound.
[2018-04-13] MEDS ORDERED: LACTATED RINGERS 1,000 ML IV SCH (02:00)
[2018-04-13 05:31] VITALS: BP 94/55
[2018-04-13] MEDS ORDERED: PRENATAL VITAMIN PO SCH (10:00)
--- NOTE | 2018-04-13 10:36 | Event Note ---
Date: 04/13/18 Patient seen, stable with no issues. She is s/p BPP 03/14, cat 1 tracing and no UC 's noted on monitor. Will Discharge home now.
--- NOTE | 2018-04-13 10:38 | Discharge Summary ---
Providers - Providers Date of Admission: 04/13/18 01:39 Date of discharge: 04/13/18 Attending physician: BRITTANY MARTELL Primary care physician: BRITTANY MARTELL Hospitalization Reason for admission: observation Discharge diagnosis: other (IUP at ~ 33 wks r/o labour) Hospital course: 22yo 33 6/7 weeks admitted for vaginal spotting while taking a shower. She reports good movement and no loss of fluid. She has been admitted and observed for contractions several times this . Her history is significant for PPROM at 36 weeks last . She is a patient at [facility]. BPP was 8/8 She had no contractions on monitor and Cat 1 tracing Condition at discharge: Good Disposition: DC-01 TO HOME OR SELFCARE - Discharge Diagnoses (1) 33 weeks gestation of Status: Acute Plan - Provider Discharge Summary Activity: no sex for 6 weeks, no heavy lifting 4 weeks, no strenuous exercise Diet: routine Additional instructions: [] Smoking cessation referral if applicable(refer to patient education folder for contact #) [] Refer to [facility] Booklet Call your doctor immediately for: * Fever > 100.5 * Heavy vaginal bleeding ( >1 pad per hour) * Severe persistent headache * Shortness of breath * Reddened, hot, painful area to leg or breast * Drainage or odor from incision. * Keep incision clean and dry at all times and follow doctor's instructions regarding bathing/showering - Follow up plan Follow up: BRITTANY MARTELL [Primary Care Provider] - 7 Days
== END 2018-04-13 16:17 | disposition home or self-care (01) ==
LOC: TRG 20:21 → LD 04-13 01:39
PROVIDERS: ADMIT Obstetrics & Gynecology; ATTEND Obstetrics & Gynecology
DX: O26.853 Spotting complicating pregnancy, third trimester (principal); O60.03 Preterm labor without delivery, third trimester; Z3A.33 33 weeks gestation of pregnancy
CPT/HCPCS: 76815; 76819; G0378; J7120

== ENCOUNTER 2018-04-18 17:16 | Outpatient (CLI) | payer MEDICAID ==
[2018-04-18] MEDS ORDERED: LACTATED RINGERS 500 ML IV ONE (18:16)
[2018-04-18 18:19] VITALS: BP 141/51
[2018-04-18] MEDS ORDERED: LACTATED RINGERS 1,000 ML ONE (18:19)
[2018-04-18 18:51] LABS: Bilirubin,Urine NEG (Negative); Blood,Urine NEG (Negative); Color,Urine Yellow (Yellow); Hyaline Casts,Urine 1 /LPF; Mucus,Urine FEW /HPF; Protein,Urine <15 mg/dL mg/dL (Negative); Urobilinogen,Urine < 2.0 mg/dL (<2.0)
--- NOTE | 2018-04-18 23:14 | Ultrasound Report ---
FINAL REPORT PROCEDURE: US OB LIMITED TECHNIQUE: Real-time limited sonographic examination was performed for evaluation of placenta for each fetus with image documentation (1 or more fetuses). CPT 83745 HISTORY: labor / Vaginal Bleeding....Assess Placenta COMPARISON: No prior studies are available for comparison. FINDINGS: There is a single fetus in a vertex presentation. The placenta is along the anterior uterus. The placenta has a grade 2. There is a small area of increased vascularity in the placenta which most likely represents of placental [place]. No other irregularity is noted. No previa. heart rate 144 beats per minute. No further measurements are obtained. IMPRESSION: There is a single fetus in a vertex presentation. The placenta is along the anterior aspect of the uterus as described. No evidence of placenta previa.
== END 2018-04-19 00:49 | disposition home or self-care (01) ==
LOC: TRG 17:16
PROVIDERS: ATTEND Obstetrics & Gynecology
DX: O47.03 False labor before 37 completed weeks of gestation, third trimester (principal); O26.893 Other specified pregnancy related conditions, third trimester; O99.513 Diseases of the respiratory system complicating pregnancy, third trimester; O24.419 Gestational diabetes mellitus in pregnancy, unspecified control; J45.909 Unspecified asthma, uncomplicated; G43.909 Migraine, unspecified, not intractable, without status migrainosus; Z3A.34 34 weeks gestation of pregnancy; Z87.891 Personal history of nicotine dependence
CPT/HCPCS: 76815; 81001; J7120

== ENCOUNTER 2019-04-11 12:23 | Emergency (ER) | payer MEDICAID, OTHER ==
--- NOTE | 2019-04-11 12:46 | Emergency Department Report ---
Blank Doc - Documentation Documentation: This is a 23-year-old female that presents with n/v, dizziness, and body aches. This initial assessment/diagnostic orders/clinical plan/treatment(s) is/are subject to change based on patient's health status, clinical progression and re- assessment by fellow clinical providers in the ED. Further treatment and workup at subsequent clinical providers discretion. Patient/guardians urged not to elope from the ED as their condition may be serious if not clinically assessed and managed. Initial orders include: 1- Patient sent to [facility] for further evaluation and treatment 2- labs 3- UA
[2019-04-11 13:13] LABS: Basophils % (Auto) 0.5 % (0.0-1.8); Eosinophils % (Auto) 0.5 % (0.0-4.3); Hematocrit 42.9 % (30.3-42.9); Hemoglobin 14.2 gm/dl (10.1-14.3); Lymphocytes # (Auto) 1.6 K/mm3 (1.2-5.4); Lymphocytes % (Auto) 26.4 % (13.4-35.0); Mean Corpuscular HGB Conc 33 % (30-34); Mean Corpuscular Volume 92 fl (79-97); Monocytes # (Auto) 0.4 K/mm3 (0.0-0.8); Platelet Count 292 K/mm3 (140-440); Red Blood Count 4.68 M/mm3 (3.65-5.03); Red Cell Distribution Width 13.1 % (13.2-15.2)
[2019-04-11 13:28] LABS: Alanine Aminotransferase 8 units/L (7-56); BUN/Creatinine Ratio 12; Blood Urea Nitrogen 7 mg/dL (7-17); Calcium 9.3 mg/dL (8.4-10.2); Hemolysis Index 1
[2019-04-11] MEDS ORDERED: ZOFRAN ODT PO ONE (15:26)
[2019-04-11] MEDS ORDERED: ANTIVERT PO ONE ×2 (15:26→16:25)
[2019-04-11 16:53] VITALS: BP 117/66
--- NOTE | 2019-04-11 17:12 | Emergency Department Report ---
ED General Adult HPI - General Chief complaint: Nausea/Vomiting/Diarrhea Stated complaint: DIZZY/CANT HOLD FOOD/COLD Time Seen by Provider: 04/11/19 12:40 Source: patient Mode of arrival: Ambulatory Limitations: No Limitations - History of Present Illness Initial comments: Patient is a 23-year-old Griselda female states she's had some dizziness since last night. She's also has some nausea vomiting social with the dizziness. Patient states the dizziness as a spinning sensation is worse when she gets up to walk around her when she sitting. Patient states that she has had no fevers chills next if noticed sore throat or sinus issues. She denies any abdominal pain. - Related Data Home Medications Medication Instructions Recorded Confirmed Last Taken Pnv No.95/Ferrous Fum/Folic AC 1 each PO QDAY 11/05/15 04/26/18 04/08/18 [ Caplet] Ferrous Sulfate [Feosol] 325 mg PO QDAY 04/07/18 04/26/18 04/04/18 Previous Rx's Medication Instructions Recorded Last Taken Type Acetaminophen [Tylenol] 500 mg PO Q8HR PRN #12 tablet 07/30/18 Unknown Rx Acetaminophen [Tylenol Extra 1,000 mg PO QID PRN #30 tablet 08/04/18 Unknown Rx Strength] Metoclopramide [Reglan] 10 mg PO ACHS PRN #30 tablet 08/04/18 Unknown Rx diphenhydrAMINE [Benadryl CAP] 25 mg PO Q6HR PRN #30 capsule 08/04/18 Unknown Rx Allergies Allergy/AdvReac Type Severity Reaction Status Date / Time ibuprofen [From Motrin] AdvReac Severe Shortness Verified 04/08/18 09:33 of Breath butorphanol tartrate AdvReac Itching Verified 05/04/17 02:26 [From Stadol] ED Review of Systems ROS: Stated complaint: DIZZY/CANT HOLD FOOD/COLD Other details as noted in HPI Comment: All other systems reviewed and negative ED Past Medical Hx - Past Medical History Previous Medical History?: Yes Hx Hypertension: No Hx Congestive Heart Failure: No Hx Diabetes: No Hx Deep Vein Thrombosis: No Hx Renal Disease: No Hx Sickle Cell Disease: No Hx Seizures: No Hx Asthma: Yes (last attack years ago; inhaler prn) Hx COPD: No Hx HIV: No Additional medical history: Vaginal dleivery x 2 - Surgical History Past Surgical History?: Yes Additional Surgical History: EYE SURGERY left - Social History Smoking Status: Never Smoker Substance Use Type: Alcohol, Marijuana - Medications Home Medications: Home Medications Medication Instructions Recorded Confirmed Last Taken Type Pnv No.95/Ferrous Fum/Folic AC 1 each PO QDAY 11/05/15 04/26/18 04/08/18 History [ Caplet] Ferrous Sulfate [Feosol] 325 mg PO QDAY 04/07/18 04/26/18 04/04/18 History Acetaminophen [Tylenol] 500 mg PO Q8HR PRN #12 tablet 07/30/18 Unknown Rx Acetaminophen [Tylenol Extra 1,000 mg PO QID PRN #30 tablet 08/04/18 Unknown Rx Strength] Metoclopramide [Reglan] 10 mg PO ACHS PRN #30 tablet 08/04/18 Unknown Rx diphenhydrAMINE [Benadryl CAP] 25 mg PO Q6HR PRN #30 capsule 08/04/18 Unknown Rx ED Physical Exam - General Limitations: No Limitations General appearance: alert, in no apparent distress - Head Head exam: Present: atraumatic, normocephalic - Eye Eye exam: Present: normal appearance, PERRL, EOMI - ENT ENT exam: Present: mucous membranes moist - Neck Neck exam: Present: normal inspection - Respiratory Respiratory exam: Present: normal lung sounds bilaterally. Absent: respiratory distress, wheezes, rales, rhonchi - Cardiovascular Cardiovascular Exam: Present: regular rate, normal rhythm, normal heart sounds. Absent: systolic murmur, diastolic murmur, rubs, gallop - GI/Abdominal GI/Abdominal exam: Present: soft, normal bowel sounds. Absent: distended, tenderness, guarding, rebound, rigid - Extremities Exam Extremities exam: Present: normal inspection - Back Exam Back exam: Present: normal inspection - Neurological Exam Neurological exam: Present: alert, oriented X3, CN II-XII intact, normal gait. Absent: motor sensory deficit - Psychiatric Psychiatric exam: Present: normal affect, normal mood - Skin Skin exam: Present: warm, dry, intact, normal color. Absent: rash ED Course Vital Signs 04/11/19 04/11/19 12:40 16:49 Temperature 97.6 F 98.7 F Pulse Rate 69 66 Respiratory 18 15 Rate Blood Pressure 117/66 Blood Pressure 111/60 [Left] O2 Sat by Pulse 98 94 Oximetry ED Medical Decision Making - Lab Data Result diagrams: 04/11/19 13:04 04/11/19 13:04 Lab Results 04/11/19 04/11/19 Range/Units 13:04 13:04 WBC 6.1 (4.5-11.0) K/mm3 RBC 4.68 (3.65-5.03) M/mm3 Hgb 14.2 (10.1-14.3) gm/dl Hct 42.9 (30.3-42.9) % MCV 92 (79-97) fl MCH 30 (28-32) pg MCHC 33 (30-34) % RDW 13.1 L (13.2-15.2) % Plt Count 292 (140-440) K/mm3 Lymph % (Auto) 26.4 (13.4-35.0) % Stone % (Auto) 6.0 (0.0-7.3) % Eos % (Auto) 0.5 (0.0-4.3) % Baso % (Auto) 0.5 (0.0-1.8) % Lymph # 1.6 (1.2-5.4) K/mm3 Stone # 0.4 (0.0-0.8) K/mm3 Eos # 0.0 (0.0-0.4) K/mm3 Baso # 0.0 (0.0-0.1) K/mm3 Seg Neutrophils % 66.6 (40.0-70.0) % Seg Neutrophils # 4.1 (1.8-7.7) K/mm3 Sodium 139 (137-145) mmol/L Potassium 4.6 (3.6-5.0) mmol/L Chloride 103.4 (98-107) mmol/L Carbon Dioxide 29 (22-30) mmol/L Anion Gap 11 mmol/L BUN 7 (7-17) mg/dL Creatinine 0.6 L (0.7-1.2) mg/dL Estimated GFR > 60 ml/min BUN/Creatinine Ratio 12 % Glucose 103 H (65-100) mg/dL Calcium 9.3 (8.4-10.2) mg/dL Total Bilirubin 0.50 (0.1-1.2) mg/dL AST 14 (5-40) units/L ALT 8 (7-56) units/L Alkaline Phosphatase 83 (35-129) units/L Total Protein 7.3 (6.3-8.2) g/dL Albumin 4.0 (3.9-5) g/dL Albumin/Globulin Ratio 1.2 % Lipase 26 (13-60) units/L - Medical Decision Making Laboratory studies are within normal limits. Patient did have abnormal orthostatic vital signs. Patient was given to his IV fluids and discharged home. Critical care attestation.: If time is entered above; I have spent that time in minutes in the direct care of this critically ill patient, excluding procedure time. ED Disposition Clinical Impression: Orthostatic dizziness Disposition: DC-01 TO HOME OR SELFCARE Is pt being admited?: No Does the pt Need Aspirin: No Condition: Stable Instructions: Dehydration (ED) Referrals: SRIDHAR ZARATE JR, MD [Primary Care Provider] - 3-5 Days Time of Disposition: 17:28
[2019-04-11] MEDS ORDERED: NACL 0.9% 1000 ML 1,000 ML IV ONE ×2 (17:26)
[2019-04-11] MEDS ORDERED: NACL 0.9% 1000 ML 2,000 ML ONE (17:29)
== END 2019-04-11 18:59 | disposition home or self-care (01) ==
LOC: ED 12:23
DX: R42 Dizziness and giddiness (principal); R11.2 Nausea with vomiting, unspecified; F12.10 Cannabis abuse, uncomplicated; Z98.890 Other specified postprocedural states; Z79.899 Other long term (current) drug therapy; Z88.8 Allergy status to other drugs, medicaments and biological substances
CPT/HCPCS: 36415; 80053; 83690; 85025; 96360; 99283; J7030; Q0162

== ENCOUNTER 2019-06-18 15:07 | Emergency (ER) | payer SELFPAY ==
--- NOTE | 2019-06-18 15:32 | Event Note ---
ED Screening Note Date of service: 06/18/19 Time: 15:31 ED Screening Note: Pt complains of dizziness and N/V and SINGH x 2 days states pain 5/10-has not tried OTC meds denies fever states lower abdominal pain started first, denies urinary symptoms or vaginal bleeding LMP 04/21/19 This initial assessment/diagnostic orders/clinical plan/treatment(s) is/are subject to change based on patients health status, clinical progression and re- assessment by fellow clinical providers in the ED. Further treatment and workup at subsequent clinical providers discretion. Patient/guardian urged not to elope from the ED as their condition may be serious if not clinically assessed and managed. Initial orders include: Labs UA
[2019-06-18 15:33] VITALS: BP 105/38
[2019-06-18 16:20] LABS: Amorphous Crystals,Urine Few; Bilirubin,Urine NEG (Negative); Blood,Urine NEG (Negative); Color,Urine Yellow (Yellow); Mucus,Urine FEW /HPF; Protein,Urine <15 mg/dL mg/dL (Negative); WBC,Urine < 1.0 /HPF (0.0-6.0)
[2019-06-18 16:24] LABS: HCG Qualitative,Urine Positive (Negative)
[2019-06-18 17:11] LABS: Hematocrit 38.2 % (30.3-42.9); Mean Corpuscular HGB Conc 34 % (30-34); Mean Corpuscular Volume 92 fl (79-97); Platelet Count 280 K/mm3 (140-440); Red Blood Count 4.15 M/mm3 (3.65-5.03); Red Cell Distribution Width 13.2 % (13.2-15.2)
[2019-06-18 17:17] LABS: BUN/Creatinine Ratio 20; Blood Urea Nitrogen 8 mg/dL (7-17); Calcium 9.2 mg/dL (8.4-10.2); Hemolysis Index 11
[2019-06-18] MEDS ORDERED: SODIUM CHLORIDE 0.9% 1000 ML 1,000 ML IV ONE (18:42)
[2019-06-18] MEDS ORDERED: diphenhydrAMINE 50 MG/ML VIAL IV ONE (18:42)
[2019-06-18] MEDS ORDERED: METOCLOPRAMIDE 10 MG/2 ML INJ IV ONE (18:42)
--- NOTE | 2019-06-18 20:57 | Emergency Department Report ---
ED General Adult HPI - General Chief complaint: Abdominal Pain Stated complaint: LIGHT HEADED/DIZZY/NAUSEA/ADB PX Time Seen by Provider: 06/18/19 15:31 Source: patient Mode of arrival: Ambulatory Limitations: No Limitations - History of Present Illness Initial comments: Patient is a 23-year-old female presents emergency room with complaints of nausea and vomiting that began 2-3 days ago. She states she has associated lightheadedness and mild lower abdominal discomfort. She denies any diarrhea, fever, urinary symptoms, vaginal discharge, vaginal bleeding, any other symptoms. She states her last menstrual cycle was 04/21/19. She states she does not know she is or not. She denies any past medical history or allergies medications.. /P:2/A:1. - Related Data Home Medications Medication Instructions Recorded Confirmed Last Taken Pnv No.95/Ferrous Fum/Folic AC 1 each PO QDAY 11/05/15 04/26/18 04/08/18 [ Caplet] Ferrous Sulfate [Feosol] 325 mg PO QDAY 04/07/18 04/26/18 04/04/18 Previous Rx's Medication Instructions Recorded Last Taken Type Acetaminophen [Tylenol] 500 mg PO Q8HR PRN #12 tablet 07/30/18 Unknown Rx Acetaminophen [Tylenol Extra 1,000 mg PO QID PRN #30 tablet 08/04/18 Unknown Rx Strength] Metoclopramide [Reglan] 10 mg PO ACHS PRN #30 tablet 08/04/18 Unknown Rx diphenhydrAMINE [Benadryl CAP] 25 mg PO Q6HR PRN #30 capsule 08/04/18 Unknown Rx Allergies Allergy/AdvReac Type Severity Reaction Status Date / Time ibuprofen [From Motrin] AdvReac Severe Shortness Verified 04/08/18 09:33 of Breath butorphanol tartrate AdvReac Itching Verified 05/04/17 02:26 [From Stadol] ED Review of Systems ROS: Stated complaint: LIGHT HEADED/DIZZY/NAUSEA/ADB PX Other details as noted in HPI Comment: All other systems reviewed and negative ED Past Medical Hx - Past Medical History Previous Medical History?: Yes Hx Hypertension: No Hx Congestive Heart Failure: No Hx Diabetes: No Hx Deep Vein Thrombosis: No Hx Renal Disease: No Hx Sickle Cell Disease: No Hx Seizures: No Hx Asthma: Yes (last attack years ago; inhaler prn) Hx COPD: No Hx HIV: No Additional medical history: Vaginal dleivery x 2 - Surgical History Past Surgical History?: Yes Additional Surgical History: EYE SURGERY left - Social History Smoking Status: Never Smoker Substance Use Type: None - Medications Home Medications: Home Medications Medication Instructions Recorded Confirmed Last Taken Type Pnv No.95/Ferrous Fum/Folic AC 1 each PO QDAY 11/05/15 04/26/18 04/08/18 History [ Caplet] Ferrous Sulfate [Feosol] 325 mg PO QDAY 04/07/18 04/26/18 04/04/18 History Acetaminophen [Tylenol] 500 mg PO Q8HR PRN #12 tablet 07/30/18 Unknown Rx Acetaminophen [Tylenol Extra 1,000 mg PO QID PRN #30 tablet 08/04/18 Unknown Rx Strength] Metoclopramide [Reglan] 10 mg PO ACHS PRN #30 tablet 08/04/18 Unknown Rx diphenhydrAMINE [Benadryl CAP] 25 mg PO Q6HR PRN #30 capsule 08/04/18 Unknown Rx ED Physical Exam - General Limitations: No Limitations General appearance: alert, in no apparent distress - Head Head exam: Present: atraumatic, normocephalic - Eye Eye exam: Present: normal appearance - ENT ENT exam: Present: mucous membranes moist - Respiratory Respiratory exam: Present: normal lung sounds bilaterally. Absent: respiratory distress, wheezes, rales, rhonchi, stridor, chest wall tenderness, accessory muscle use, decreased breath sounds, prolonged expiratory - Cardiovascular Cardiovascular Exam: Present: regular rate, normal rhythm, normal heart sounds. Absent: systolic murmur, diastolic murmur, rubs, gallop - GI/Abdominal GI/Abdominal exam: Present: soft, normal bowel sounds. Absent: distended, tenderness, guarding, rebound, rigid - Back Exam Back exam: Absent: CVA tenderness (R), CVA tenderness (L) - Neurological Exam Neurological exam: Present: alert, oriented X3 - Psychiatric Psychiatric exam: Present: normal affect, normal mood - Skin Skin exam: Present: warm, dry, intact ED Course Vital Signs 06/18/19 15:31 Temperature 98.3 F Pulse Rate 79 Blood Pressure 105/38 ED Medical Decision Making - Lab Data Result diagrams: 06/18/19 16:43 06/18/19 16:43 Lab Results 06/18/19 06/18/19 06/18/19 Range/Units 15:51 16:43 16:43 WBC 9.0 (4.5-11.0) K/mm3 RBC 4.15 (3.65-5.03) M/mm3 Hgb 13.0 (10.1-14.3) gm/dl Hct 38.2 (30.3-42.9) % MCV 92 (79-97) fl MCH 31 (28-32) pg MCHC 34 (30-34) % RDW 13.2 (13.2-15.2) % Plt Count 280 (140-440) K/mm3 Sodium 135 L (137-145) mmol/L Potassium 4.3 (3.6-5.0) mmol/L Chloride 102.1 (98-107) mmol/L Carbon Dioxide 20 L (22-30) mmol/L Anion Gap 17 mmol/L BUN 8 (7-17) mg/dL Creatinine 0.4 L (0.7-1.2) mg/dL Estimated GFR > 60 ml/min BUN/Creatinine Ratio 20 % Glucose 87 (65-100) mg/dL Calcium 9.2 (8.4-10.2) mg/dL Lipase 31 (13-60) units/L HCG, Quant (0-4) mIU/mL Urine Color Yellow (Yellow) Urine Turbidity Clear (Clear) Urine pH 6.0 (5.0-7.0) Ur Specific [place] 1.020 (1.003-1.030) Urine Protein <15 mg/dl (Negative) mg/dL Urine Glucose (UA) Neg (Negative) mg/dL Urine Ketones Neg (Negative) mg/dL Urine Blood Neg (Negative) Urine Nitrite Neg (Negative) Urine Bilirubin Neg (Negative) Urine Urobilinogen 2.0 (<2.0) mg/dL Ur Leukocyte Esterase Neg (Negative) Urine WBC (Auto) < 1.0 (0.0-6.0) /HPF Urine RBC (Auto) 4.0 (0.0-6.0) /HPF U Epithel Cells (Auto) 1.0 (0-13.0) /HPF Amorphous Crystals Few Urine Mucus Few /HPF Urine HCG, Qual Positive A (Negative) 06/18/19 Range/Units 19:06 WBC (4.5-11.0) K/mm3 RBC (3.65-5.03) M/mm3 Hgb (10.1-14.3) gm/dl Hct (30.3-42.9) % MCV (79-97) fl MCH (28-32) pg MCHC (30-34) % RDW (13.2-15.2) % Plt Count (140-440) K/mm3 Sodium (137-145) mmol/L Potassium (3.6-5.0) mmol/L Chloride (98-107) mmol/L Carbon Dioxide (22-30) mmol/L Anion Gap mmol/L BUN (7-17) mg/dL Creatinine (0.7-1.2) mg/dL Estimated GFR ml/min BUN/Creatinine Ratio % Glucose (65-100) mg/dL Calcium (8.4-10.2) mg/dL Lipase (13-60) units/L HCG, Quant [id number] H (0-4) mIU/mL Urine Color (Yellow) Urine Turbidity (Clear) Urine pH (5.0-7.0) Ur Specific [place] (1.003-1.030) Urine Protein (Negative) mg/dL Urine Glucose (UA) (Negative) mg/dL Urine Ketones (Negative) mg/dL Urine Blood (Negative) Urine Nitrite (Negative) Urine Bilirubin (Negative) Urine Urobilinogen (<2.0) mg/dL Ur Leukocyte Esterase (Negative) Urine WBC (Auto) (0.0-6.0) /HPF Urine RBC (Auto) (0.0-6.0) /HPF U Epithel Cells (Auto) (0-13.0) /HPF Amorphous Crystals Urine Mucus /HPF Urine HCG, Qual (Negative) - Radiology Data Radiology results: report reviewed ULTRASOUND OBSTETRIC INDICATION / CLINICAL INFORMATION: , abd pain. Clinical Gestational Age (GA): 8 weeks 2 days TECHNIQUE: Transabdominal and Transvaginal. COMPARISON: None available. FINDINGS: The uterus is retroverted and retroflexed. GESTATIONAL SAC: Well-defined oval shape and intrauterine in location. YOLK SAC: No significant abnormality. EMBRYO/FETUS: No significant abnormality. - [place]-Rump Length = 1.8 cm = 8 weeks, 2 day(s). - Heart Rate, beats per minute (if present) = 169 ADNEXA: No significant abnormality. FREE FLUID: Trace pelvic free fluid. ADDITIONAL FINDINGS: None. IMPRESSION: 1. Single, living intrauterine with estimated sonographic age of 8 weeks, 2 day(s). Signer Name: Andie Montana MD Signed: 06/18/2019 11:21 PM Workstation Name: [id number] Transcribed By: [facility] Dictated By: Andie Montana MD Electronically Authenticated By: Andie Montana MD Signed Date/Time: 06/18/192320 DD/ 13 TD/TT: - Medical Decision Making Patient is a 23-year-old female presents emergency room with complaints of nausea and vomiting that began 2-3 days ago. She states she has associated lightheadedness and mild lower abdominal discomfort. She denies any diarrhea, fever, urinary symptoms, vaginal discharge, vaginal bleeding, any other symptoms. She states her last menstrual cycle was 04/21/19. She states she does not know she is or not. She denies any past medical history or allergies medications.. /P:2/A:1. vitals recorded on sheet are stable. no abd tenderness or CVAT on exam. CBC and BMP are stable. hcg quant [id number]. UA without evidence of UTI. OB US shows: 1. Single, living intrauterine with estimated sonographic age of 8 weeks, 2 day(s). Patient given fluids and nausea medications and had no further episodes of nausea and vomiting while in the ED and was able tolerate by mouth intake. Advised patient to please increase her fluid intake over the next several days. Discussed with patient to begin taking a vitamin [id number]. Advised patient to follow up with her [employer] in the next 2-3 days to receive her care. Advised patient to return to the emergency room for any new or worsening symptoms - Differential Diagnosis IUP, hyperemesis, ectopic, UTI, dehydration, placenta abruption Critical care attestation.: If time is entered above; I have spent that time in minutes in the direct care of this critically ill patient, excluding procedure time. ED Disposition Clinical Impression: Nausea and vomiting during Abdominal pain during Qualifiers: Trimester: first trimester Qualified Code(s): O26.891 - Other specified preg milly related conditions, first trimester Disposition: DC-01 TO HOME OR SELFCARE Is pt being admited?: No Does the pt Need Aspirin: No Condition: Stable Instructions: Morning Sickness (ED), Abdominal Pain in (ED) Referrals: PRIMARY CARE, [Primary Care Provider] - 2-3 Days Time of Disposition: 13:33 Print Language: SETSWANA
--- NOTE | 2019-06-19 01:14 | Ultrasound Report ---
ULTRASOUND OBSTETRIC INDICATION / CLINICAL INFORMATION: , abd pain. Clinical Gestational Age (GA): 8 weeks 2 days TECHNIQUE: Transabdominal and Transvaginal. COMPARISON: None available. FINDINGS: The uterus is retroverted and retroflexed. GESTATIONAL SAC: Well-defined oval shape and intrauterine in location. YOLK SAC: No significant abnormality. EMBRYO/FETUS: No significant abnormality. - [place]-Rump Length = 1.8 cm = 8 weeks, 2 day(s). - Heart Rate, beats per minute (if present) = 169 ADNEXA: No significant abnormality. FREE FLUID: Trace pelvic free fluid. ADDITIONAL FINDINGS: None. IMPRESSION: 1. Single, living intrauterine with estimated sonographic age of 8 weeks, 2 day(s). Signer Name: Andie Montana MD Signed: 06/18/2019 11:21 PM Workstation Name: [id number]
--- NOTE | 2019-06-19 01:14 | Ultrasound Report ---
ULTRASOUND OBSTETRIC INDICATION / CLINICAL INFORMATION: , abd pain. Clinical Gestational Age (GA): 8 weeks 2 days TECHNIQUE: Transabdominal and Transvaginal. COMPARISON: None available. FINDINGS: The uterus is retroverted and retroflexed. GESTATIONAL SAC: Well-defined oval shape and intrauterine in location. YOLK SAC: No significant abnormality. EMBRYO/FETUS: No significant abnormality. - [place]Rump Length = 1.8 cm = 8 weeks, 2 day(s). - Heart Rate, beats per minute (if present) = 169 ADNEXA: No significant abnormality. FREE FLUID: Trace pelvic free fluid. ADDITIONAL FINDINGS: None. IMPRESSION: 1. Single, living intrauterine with estimated sonographic age of 8 weeks, 2 day(s). Signer Name: Andie Montana MD Signed: 06/18/2019 11:21 PM Workstation Name: [id number]
== END 2019-06-19 01:30 | disposition home or self-care (01) ==
LOC: ED 15:07
DX: R11.2 Nausea with vomiting, unspecified (principal); R42 Dizziness and giddiness; J45.909 Unspecified asthma, uncomplicated; Z88.6 Allergy status to analgesic agent; Z88.8 Allergy status to other drugs, medicaments and biological substances
CPT/HCPCS: 36415; 76801; 76817; 80048; 81001; 81025; 83690; 84702; 85027; J1200; J2765; J7030; 96361; 96374; 96375

== ENCOUNTER 2019-08-09 18:54 | Emergency (ER) | payer SELFPAY ==
--- NOTE | 2019-08-09 22:15 | Event Note ---
ED Screening Note Date of service: 08/09/19 Time: 22:13 ED Screening Note: 23 y o 15 weeks gestation presents for syncopal episode This initial assessment/diagnostic orders/clinical plan/treatment(s) is/are subject to change based on patients health status, clinical progression and re-assessment by fellow clinical providers in the ED. Further treatment and workup at subsequent clinical providers discretion. Patient/guardian urged not to elope from the ED as their condition may be serious if not clinically assessed and managed. Initial orders include: cbc,ua, upt,cmp
[2019-08-09] MEDS ORDERED: SODIUM CHLORIDE 0.9% 1000 ML 1,000 ML IV ONE (22:48)
[2019-08-09] MEDS ORDERED: ACETAMINOPHEN 500 MG TAB PO ONE (23:16)
[2019-08-10] LABS: Alanine Aminotransferase 8 units/L (7-56); BUN/Creatinine Ratio 10; Blood Urea Nitrogen 4 mg/dL (7-17); Calcium 9.1 mg/dL (8.4-10.2)
[2019-08-10 00:01] LABS: Albumin 3.9 g/dL (3.9-5); Basophils % (Auto) 0.2 % (0.0-1.8); Eosinophils % (Auto) 0.4 % (0.0-4.3); Hematocrit 36.9 % (30.3-42.9); Hemoglobin 12.4 gm/dl (10.1-14.3); Hemolysis Index 0; Lymphocytes # (Auto) 1.9 K/mm3 (1.2-5.4); Lymphocytes % (Auto) 27.1 % (13.4-35.0); Mean Corpuscular HGB Conc 34 % (30-34); Mean Corpuscular Volume 93 fl (79-97); Mean Platelet Volume 7.2 fl (6-12); Monocytes # (Auto) 0.6 K/mm3 (0.0-0.8); Monocytes % (Auto) 8.2 % (0.0-7.3); Platelet Count 324 K/mm3 (140-440); Red Blood Count 3.99 M/mm3 (3.65-5.03); Red Cell Distribution Width 13.3 % (13.2-15.2)
[2019-08-10 00:41] LABS: HCG Qualitative,Urine Positive (Negative)
[2019-08-10 00:59] LABS: Bilirubin,Urine NEG (Negative); Color,Urine Yellow (Yellow)
[2019-08-10 01:01] LABS: Blood,Urine NEG (Negative); Protein,Urine <15 mg/dL mg/dL (Negative); Urobilinogen,Urine < 2.0 mg/dL (<2.0)
[2019-08-10 01:02] LABS: Mucus,Urine Few /HPF
[2019-08-10 01:03] LABS: Ictotest,Urine NEG (Negative)
--- NOTE | 2019-08-10 01:55 | Emergency Department Report ---
ED General Adult HPI - General Chief complaint: Syncope Stated complaint: HEADACHE/SYNCOPE Source: patient Mode of arrival: Ambulatory Limitations: No Limitations - History of Present Illness Initial comments: Patient is a A0 23-year-old -[place] female who is approximately 15 weeks gestation and who presented to the ED with acute onset persistent lightheadedness, headache and a single episode of syncope 6 hours ago at home while walking to the bathroom from her bedroom. Patient states that she was asleep and woke up to go to the bathroom when she felt lightheaded and had a syncopal episode, and woke up on the floor. Patient states that she is unsure as to how long she lost consciousness since no one else witnessed the event. Patient states that she has been having persistent headache in the frontal scalp since falling on the floor. Patient denies dizziness, change in vision, nausea, vomiting, chest pain, shortness of breath, fever, chills, cough, abdominal pain, vaginal bleeding, vaginal discharge, dysuria, nasal and sinus congestion, sore throat and palpitations. Patient admits to not drinking enough water and that she stood up fast from the bed to go to the bathroom. MD Complaint: lightheadedness; syncope and headache -: Sudden, hour(s) (6) Location: head Radiation: non-radiation Severity scale (0 -10): 6 Quality: aching, sharp Consistency: constant Improves with: none Worsens with: none Associated Symptoms: denies other symptoms, headaches, syncope. denies: confusion, chest pain, cough, diaphoresis, fever/chills, loss of appetite, malaise, nausea/vomiting, rash, seizure, shortness of breath, weakness Treatments Prior to Arrival: none - Related Data Home Medications Medication Instructions Recorded Confirmed Last Taken Pnv No.95/Ferrous Fum/Folic AC 1 each PO QDAY 11/05/15 04/26/18 04/08/18 [ Caplet] Ferrous Sulfate [Feosol] 325 mg PO QDAY 04/07/18 04/26/18 04/04/18 Previous Rx's Medication Instructions Recorded Last Taken Type Acetaminophen [Tylenol] 500 mg PO Q8HR PRN #12 tablet 07/30/18 Unknown Rx Acetaminophen [Tylenol Extra 1,000 mg PO QID PRN #30 tablet 08/04/18 Unknown Rx Strength] Metoclopramide [Reglan] 10 mg PO ACHS PRN #30 tablet 08/04/18 Unknown Rx diphenhydrAMINE [Benadryl CAP] 25 mg PO Q6HR PRN #30 capsule 08/04/18 Unknown Rx Acetaminophen [Acetaminophen TAB] 500 mg PO Q6HR PRN #24 tablet 08/10/19 Unknown Rx Allergies Allergy/AdvReac Type Severity Reaction Status Date / Time ibuprofen [From Motrin] AdvReac Severe Shortness Verified 04/08/18 09:33 of Breath butorphanol tartrate AdvReac Itching Verified 05/04/17 02:26 [From Stadol] ED Review of Systems ROS: Stated complaint: HEADACHE/SYNCOPE Other details as noted in HPI Constitutional: denies: chills, fever Eyes: denies: eye pain, eye discharge, vision change ENT: denies: ear pain, throat pain Respiratory: denies: cough, shortness of breath, wheezing Cardiovascular: denies: chest pain, palpitations Endocrine: no symptoms reported Gastrointestinal: denies: abdominal pain, nausea, vomiting, diarrhea Genitourinary: denies: urgency, dysuria, discharge Musculoskeletal: denies: back pain, joint swelling, arthralgia Skin: denies: rash, lesions Neurological: headache, other (lightheadedness, syncope). denies: weakness, paresthesias Psychiatric: denies: anxiety, depression Hematological/Lymphatic: denies: easy bleeding, easy bruising ED Past Medical Hx - Past Medical History Previous Medical History?: Yes Hx Hypertension: No Hx Congestive Heart Failure: No Hx Diabetes: No Hx Deep Vein Thrombosis: No Hx Renal Disease: No Hx Sickle Cell Disease: No Hx Seizures: No Hx Asthma: Yes (last attack years ago; inhaler prn) Hx COPD: No Hx HIV: No Additional medical history: Vaginal dleivery x 2 - Surgical History Past Surgical History?: Yes Additional Surgical History: EYE SURGERY left - Social History Smoking Status: Never Smoker Substance Use Type: None - Medications Home Medications: Home Medications Medication Instructions Recorded Confirmed Last Taken Type Pnv No.95/Ferrous Fum/Folic AC 1 each PO QDAY 11/05/15 04/26/18 04/08/18 History [ Caplet] Ferrous Sulfate [Feosol] 325 mg PO QDAY 04/07/18 04/26/18 04/04/18 History Acetaminophen [Tylenol] 500 mg PO Q8HR PRN #12 tablet 07/30/18 Unknown Rx Acetaminophen [Tylenol Extra 1,000 mg PO QID PRN #30 tablet 08/04/18 Unknown Rx Strength] Metoclopramide [Reglan] 10 mg PO ACHS PRN #30 tablet 08/04/18 Unknown Rx diphenhydrAMINE [Benadryl CAP] 25 mg PO Q6HR PRN #30 capsule 08/04/18 Unknown Rx Acetaminophen [Acetaminophen TAB] 500 mg PO Q6HR PRN #24 tablet 08/10/19 Unknown Rx ED Physical Exam - General Limitations: No Limitations General appearance: alert, in no apparent distress - Head Head exam: Present: atraumatic, normocephalic, normal inspection - Eye Eye exam: Present: normal appearance, PERRL, EOMI Pupils: Present: normal accommodation - ENT ENT exam: Present: normal exam, normal orophraynx, mucous membranes moist, TM's normal bilaterally, normal external ear exam - Neck Neck exam: Present: normal inspection, full ROM. Absent: tenderness, meni ngismus, lymphadenopathy - Respiratory Respiratory exam: Present: normal lung sounds bilaterally. Absent: respiratory distress, wheezes, rhonchi, stridor, chest wall tenderness, decreased breath sounds, prolonged expiratory - Cardiovascular Cardiovascular Exam: Present: regular rate, normal rhythm, normal heart sounds. Absent: systolic murmur, diastolic murmur, rubs, gallop - GI/Abdominal GI/Abdominal exam: Present: soft, normal bowel sounds. Absent: distended, tenderness, hypoactive bowel sounds - Extremities Exam Extremities exam: Present: normal inspection, full ROM, normal capillary refill - Back Exam Back exam: Present: normal inspection, full ROM. Absent: tenderness, muscle spasm, paraspinal tenderness - Neurological Exam Neurological exam: Present: alert, oriented X3, CN II-XII intact, normal gait, reflexes normal - Psychiatric Psychiatric exam: Present: normal affect, normal mood - Skin Skin exam: Present: warm, dry, intact, normal color. Absent: rash ED Course Vital Signs 08/09/19 08/09/19 08/10/19 19:25 23:23 02:31 Temperature 98.6 F Pulse Rate 84 Pulse Rate [ 75 Sitting] Respiratory 18 18 Rate Blood Pressure 109/62 Blood Pressure 111/50 [Sitting] O2 Sat by Pulse 100 Oximetry ED Medical Decision Making - Lab Data Result diagrams: 08/09/19 22:41 08/09/19 22:41 - Radiology Data Radiology results: report reviewed, image reviewed Findings [facility] [address] [place] [address] Ultrasound Report Signed Patient: AKILA CANADA MR#: [id number] : 1995 Acct:[id number] Age/Sex: 23 / F ADM Date: 08/09/19 Loc: ED Attending Dr: Ordering Physician: PREET NOVAK Date of Service: 08/10/19 Procedure(s): US OB >= 14 weeks Fetus Accession Number(s): [id number] cc: PREET NOVAK ULTRASOUND OBSTETRIC, 08/10/2019 CLINICAL INFORMATION/INDICATION: History of cramping after fall. COMPARISON: Obstetrical ultrasound, 06/18/2019 FINDINGS: There is a single intrauterine . BPD = 3.1 cm = 15 weeks, 6 day(s). Head circumference = 11.4 cm = 15 weeks, 4 day(s). Abdominal circumference = 9.5 cm = 15 weeks, 4 day(s). Femur length = 1.9 cm = 15 weeks, 3 day(s). Overall estimated sonographic age = 15 weeks, 4 day(s). heart rate is 153 beats per minute. position is cephalic. Placenta is left lateral and grade 0 . Amniotic fluid volume within normal limits. Impression: 1. Single living intrauterine with estimated sonographic age of 15 weeks, 4 day(s). Signer Name: Gricelda Monroy MD Signed: 08/10/2019 4:04 AM Workstation Name: [id number] Transcribed By: TRENA Dictated By: Gricelda Monroy MD Electronically Authenticated By: Gricelda Monroy MD Signed Date/Time: 08/10/19403 DD/ 0 - Medical Decision Making This is a 23-year-old female who is approximately 15 weeks gestation and presented to the ED with persistent headache, lightheadedness and a single episode of syncope. In the ED, patient is alert and oriented 3 and is not in distress with normal vital signs. Lab test results are nonactionable including urinalysis and troponin levels. Patient was treated in the ED with Tylenol and also given normal saline 1 L IV bolus. The pelvic ultrasound shows a single living intrauterine with estimated sonographic age of 15 weeks, 4 day(s) and heart tones of 153 bpm. the EKG shows normal sinus rhythm with ventricular rate of [address] or T-wave abnormalities or pathological Q waves. The orthostatic vital signs are normal. On reevaluation, patient felt better with the treatment, and lightheadedness and headache resolved. Patient's symptoms are likely due to her status, and vasovagal syncope as well as possible dehydration. Patient was advised to take Tylenol as needed for headache and to drink plenty of fluids and follow-up with [facility] [employer] physician in 5- 7 days for reevaluation. Patient was advised to return to the emergency department. Immediately if symptoms get worse. - Differential Diagnosis lightheadedness; tension headache; syncope; Critical care attestation.: If time is entered above; I have spent that time in minutes in the direct care of this critically ill patient, excluding procedure time. ED Disposition Clinical Impression: Syncope, vasovagal, Positional lightheadedness, Syncope due to orthostatic hypotension Disposition: DC-01 TO HOME OR SELFCARE Is pt being admited?: No Does the pt Need Aspirin: No Condition: Stable Instructions: Syncope (ED), Lightheadedness (ED) Additional Instructions: Take Tylenol as needed for pain, plenty of fluids and follow-up with your [facility] physician in 5-7 days for reevaluation. Return to the ED immediately if symptoms get worse. Prescriptions: Acetaminophen [Acetaminophen TAB] 500 mg PO Q6HR PRN #24 tablet PRN Reason: Pain , Severe (7-10) Referrals: ERICA HERNANDEZ MD [Staff Physician] - 3-5 Days Time of Disposition: 02:00 Print Language: [place] LEONE[place]
[2019-08-10 02:32] VITALS: BP 111/50
--- NOTE | 2019-08-10 04:08 | Ultrasound Report ---
ULTRASOUND OBSTETRIC, 08/10/2019 CLINICAL INFORMATION/INDICATION: History of cramping after fall. COMPARISON: Obstetrical ultrasound, 06/18/2019 FINDINGS: There is a single intrauterine . BPD = 3.1 cm = 15 weeks, 6 day(s). Head circumference = 11.4 cm = 15 weeks, 4 day(s). Abdominal circumference = 9.5 cm = 15 weeks, 4 day(s). Femur length = 1.9 cm = 15 weeks, 3 day(s). Overall estimated sonographic age = 15 weeks, 4 day(s). heart rate is 153 beats per minute. position is cephalic. Placenta is left lateral and grade 0 . Amniotic fluid volume within normal limits. Impression: 1. Single living intrauterine with estimated sonographic age of 15 weeks, 4 day(s). Signer Name: Gricelda Monroy MD Signed: 08/10/2019 4:04 AM Workstation Name: [id number]
== END 2019-08-10 04:37 | disposition home or self-care (01) ==
LOC: ED 18:54
DX: O26.892 Other specified pregnancy related conditions, second trimester (principal); R55 Syncope and collapse; R42 Dizziness and giddiness; Z98.890 Other specified postprocedural states; Z79.899 Other long term (current) drug therapy; Z88.6 Allergy status to analgesic agent; Z87.09 Personal history of other diseases of the respiratory system; Z88.8 Allergy status to other drugs, medicaments and biological substances; Z3A.15 15 weeks gestation of pregnancy
CPT/HCPCS: 36415; 76805; 80053; 81001; 81025; 84484; 85025; 93005; 93010; 96360; 99284; J7030

== ENCOUNTER 2019-10-11 17:46 | Observation (INO) | payer MEDICAID ==
[2019-10-11] MEDS ORDERED: LACTATED RINGERS 1,000 ML IV SCH (20:00)
--- NOTE | 2019-10-11 22:03 | Ultrasound Report ---
US OB limited INDICATION / CLINICAL INFORMATION: PLACENTA PREVIA C/O CONTRACTIONS AND LEAKING. COMPARISON: None available. FINDINGS: Single, viable intrauterine in cephalic presentation. heart rate 142. Placenta is posterior and free of the cervical os. Amniotic fluid volume is within normal limits, with a fluid index of 9.5 cm. IMPRESSION: 1. Single, viable intrauterine . 2. No evidence of placenta previa. Signer Name: Melo Guallpa MD Signed: 10/11/2019 9:59 PM Workstation Name: [id number]
[2019-10-11] MEDS ORDERED: DOCUSATE SODIUM 100 MG CAP PO PRN (23:41)
[2019-10-11] MEDS ORDERED: fentaNYL 100 MCG/2 ML INJ IV PRN (23:53)
[2019-10-12] MEDS: LACTATED RINGERS 1,000 ML IV SCH ×3 (00:11→21:01)
[2019-10-12] MEDS ORDERED: PRENATAL VIT27-FE FUMARATE-FOLIC ACID VIT TAB PO SCH (10:00)
[2019-10-12] MEDS: ACETAMINOPHEN 325 MG TAB PO PRN ×2 (10:31→18:16)
[2019-10-13] MEDS: LACTATED RINGERS 1,000 ML IV SCH (05:35)
[2019-10-15 19:34] VITALS: BP 113/57
== END 2019-10-13 10:30 | disposition home or self-care (01) ==
LOC: TRG 17:46 → LD 10-12 04:49
PROVIDERS: ADMIT Obstetrics & Gynecology; ATTEND Obstetrics & Gynecology
DX: O62.9 Abnormality of forces of labor, unspecified (principal); O42.90 Premature rupture of membranes, unspecified as to length of time between rupture and onset of labor, unspecified weeks of gestation; Z3A.00 Weeks of gestation of pregnancy not specified
CPT/HCPCS: 76815; G0378; J7120

== ENCOUNTER 2019-10-14 18:20 | Inpatient (IN) | payer MEDICAID ==
[2019-10-14] MEDS ORDERED: LACTATED RINGERS 500 ML IV ONE (18:58)
[2019-10-14 19:18] LABS: Bacteria,Urine 1+ /HPF (Negative); Bilirubin,Urine NEG (Negative); Blood,Urine MOD (Negative); Color,Urine Yellow (Yellow); Urobilinogen,Urine < 2.0 mg/dL (<2.0)
--- NOTE | 2019-10-14 20:15 | Ultrasound Report ---
Obstetrical ultrasound limited INDICATION: Pelvic pain COMPARISON: 10/11/2019 FINDINGS: KAREN measures 11.4. The heart rate is 154 bpm. The fetus remains in the cephalic posit ion. IMPRESSION: KAREN measuring 11.4, as above Signer Name: Jovany Olea MD Signed: 10/14/2019 8:10 PM Workstation Name: [id number]
[2019-10-14] MEDS ORDERED: TERBUTALINE 1 MG/1 ML INJ SUB-Q PRN (20:31)
[2019-10-14] MEDS ORDERED: ePHEDrine SULFATE 50 MG/1 ML INJ IV PRN (20:31)
[2019-10-14] MEDS ORDERED: MINERAL OIL 30 ML ORAL LIQD PO PRN (20:31)
[2019-10-14] MEDS ORDERED: TERBUTALINE 1 MG/1 ML INJ IVP PRN (20:31)
[2019-10-14] MEDS ORDERED: LIDOCAINE (2%) 20 MG/1 ML VIAL 20 ML MDV INFILTRATI ONE (20:31)
[2019-10-14] MEDS ORDERED: MAGNESIUM SULFATE 4 GM/100 ML BAG IV ONE ×2 (20:34→23:19)
[2019-10-14] MEDS ORDERED: AZITHROMYCIN 250 MG TAB PO ONE (20:44)
[2019-10-14] MEDS ORDERED: AMPICILLIN/NS 2 GM/100 ML 2 GM/100 ML BAG IV ONE (21:00)
[2019-10-14 23:26] LABS: Hematocrit 33.2 % (30.3-42.9); Hemoglobin 11.3 gm/dl (10.1-14.3); Mean Corpuscular HGB Conc 34 % (30-34); Mean Corpuscular Volume 94 fl (79-97); Platelet Count 311 K/mm3 (140-440); Red Blood Count 3.54 M/mm3 (3.65-5.03); Red Cell Distribution Width 12.6 % (13.2-15.2)
[2019-10-14] MEDS: LACTATED RINGERS 1,000 ML IV SCH (23:33)
[2019-10-14] MEDS: BETAMET ACET/BETAMET NA PH 6 MG/ML INJ 5 ML MDV IM SCH (23:46)
[2019-10-15] MEDS: MAGNESIUM SULFATE 40GM/1000ML 40 GM/1,000 ML BAG IV SCH ×2 (00:16→20:31)
[2019-10-15] MEDS: AMPICILLIN/NS 1 GM/50 ML 1 GM/50 ML BAG IV SCH ×5 (03:48→20:00)
--- NOTE | 2019-10-15 15:11 | History and Physical Report ---
History of Present Illness Date of examination: 10/15/19 Date of admission: 10/14/19 22:45 Chief complaint: ROM History of present illness: Patient stated she had a gush of fluid come out of her vagina yesterday and she proceeded to come to L&D where she was comfirmed to have ruptured her membranes. . 1 term delivery. second was 34+wks. Both children are well. One miscarriage. AILYN 01/27/2020.She denied contractions, vaginal bleeding and fever. Fetus is active. Past History Past Medical History: no pertinent history - Obstetrical History Expected Date of Delivery: 01/27/20 Actual Gestation: 25 Week(s) 1 Day(s) : 4 Para: 2 Number of Pregnancies: 1 Number of Living Children: 2 Medications and Allergies Allergies Allergy/AdvReac Type Severity Reaction Status Date / Time ibuprofen [From Motrin] AdvReac Severe Shortness Verified 04/08/18 09:33 of Breath butorphanol tartrate AdvReac Itching Verified 05/04/17 02:26 [From Stadol] Home Medications Medication Instructions Recorded Confirmed Last Taken Type Ferrous Sulfate [Feosol] 325 mg PO BID 04/07/18 10/14/19 10/14/19 History 0800 Vitamin 1 tab PO DAILY 10/12/19 10/14/19 10/14/19 History 0800 Active Meds: Active Medications Betamethasone Acet/Betameth SodPhos (Celestone Soluspan) 12 mg IM Q24H JAMARCUS Stop: 10/15/19 21:01 Last Admin: 10/14/19 23:46 Dose: 12 mg Documented by: Ephedrine Sulfate (Ephedrine Sulfate) 10 mg IV Q2M PRN PRN Reason: Hypotension Oxytocin/Sodium Chloride (Pitocin/Ns 20 Unit/1000ml Drip) 20 units in 1,000 mls @ 125 mls/hr IV DIRECT JAMARCUS Lactated Ringer's (Lactated Ringers) 1,000 mls @ 125 mls/hr IV DIRECT JAMARCUS Last Admin: 10/14/19 23:33 Dose: 125 mls/hr Documented by: Ampicillin Sodium (Ampicillin/Ns 1 Gm/50 Ml) 1 gm in 50 mls @ 100 mls/hr IV Q4H JAMARCUS; Protocol Last Admin: 10/15/19 12:06 Dose: 100 mls/hr Documented by: Magnesium Sulfate (Magnesium Sulfate 40gm/1000ml) 40 gm in 1,000 mls @ 50 mls/hr IV DIRECT JAMARCUS Last Admin: 10/15/19 00:16 Dose: 2 gm/hr, 50 mls/hr Documented by: Mineral Oil (Mineral Oil) 30 ml PO QHS PRN PRN Reason: Constipation Terbutaline Sulfate (Brethine) 0.25 mg SUB-Q ONCE PRN PRN Reason: Hyperstimulation/Hypertonicity Terbutaline Sulfate (Brethine) 0.25 mg IVP ONCE PRN PRN Reason: Hyperstimulation/Hypertonicity Review of Systems All systems: negative - Vital Signs Vital signs: Vital Signs Temp Pulse Resp BP 98.3 F 91 H 16 95/54 10/14/19 18:56 10/14/19 18:56 10/14/19 18:56 10/14/19 18:56 Temp Pulse Resp BP Pulse Ox 97.9 F 96 H 16 109/59 100 10/15/19 13:55 10/15/19 15:01 10/15/19 12:05 10/15/19 14:41 10/15/19 15:01 - Physical Exam Breasts: Positive: deferred Lungs: Positive: Normal air movement Abdomen: Positive: distention. Negative: tenderness, guarding - Obstetrical FHR: auscultation normal Uterine Contraction Pattern: Absent Results Result Diagrams: 10/14/19 23:00 Abnormal lab results 10/14/19 10/14/19 10/15/19 Range/Units 23:00 Unknown 05:28 RBC 3.54 L (3.65-5.03) M/mm3 RDW 12.6 L (13.2-15.2) % Magnesium 5.00 H (1.7-2.3) mg/dL Urine WBC (Auto) 11.0 H (0.0-6.0) /HPF U Epithel Cells (Auto) 17.0 H (0-13.0) /HPF All other labs normal. Ultrasound: report reviewed Assessment and Plan - Patient Problems (1) 35 weeks gestation of Onset Date: 04/26/18 Current Visit: No Status: Acute (2) premature rupture of membranes (PPROM) with onset of labor after 24 hours of rupture in third trimester, antepartum Onset Date: 04/26/18 Current Visit: No Status: Acute Plan to address problem: Dr Wells had the patient started on betamethasone, MgSO4, antibiotics. US report reviewed. [facility] consult was sought. MFM consult ordered.
[2019-10-15] MEDS: LACTATED RINGERS 1,000 ML IV SCH (16:08)
[2019-10-15] MEDS: BETAMET ACET/BETAMET NA PH 6 MG/ML INJ 5 ML MDV IM SCH (21:19)
--- NOTE | 2019-10-15 22:30 | Consultation ---
Consult Note - Parent Education I met with parent(s) and discussed the following:: Need for NICU admission, Poss ible need for intubation and surfactant or other resp support, Temperature regulation, Head ultrasounds to evaluate IVH, Eye exams for ROP screening, Possible need for IV fluids/TPN and IV antibiotics, Possible need for umbilical lines, Importance of providing breast milk & encouraged pumping aft delivery (mother is interested in EBM/DBM), Donor breast milk if baby meets criteria after , Slow feeding advancement and monitoring of tolerance. NG/OG feeds, Need to monitor for jaundice, Data for survival & survival without significant co-morbidities Parent(s) demonstrated understanding of all the information:: Yes Assessment and Plan - Assessment Gestation:: 25 (25 08/13 weeker) Estimated Weight: N/A Baby's gender: Female Baby's name: [facility] Additional Comment: 25 7 weeker, AILYN 01/27/20. Mother is a 25YO with h/o PTL at 34+week, GDM. PPROM on 10/13 @1630. Rec'd mag, beta x2, and antibiotics. - Plan Plan: Agree with Mag & steroids Will attend delivery Please call NICU with questions
[2019-10-16] MEDS: AMPICILLIN/NS 1 GM/50 ML 1 GM/50 ML BAG IV SCH ×2 (04:33→10:05)
--- NOTE | 2019-10-16 15:48 | Progress Note ---
Assessment and Plan - Patient Problems (1) premature rupture of membranes (PPROM) with unknown onset of labor Current Visit: Yes Status: Acute Plan to address problem: PT is 25weeks 2 days today with PPROM at [id number]. Pt has already received Betamethasone x 2 as well as 24 hrs of MgSO4. Pt will complete 48 hrs of IV Abx in 12 hrs and will switch over to PO Amoxicillin tomorrow am. - Pt with h/o GDM in prior preg so will check a 1 hr Glucola since pt will remain in hospital until delivery. (2) History of herpes genitalis Current Visit: Yes Status: Acute Plan to address problem: Since pt has an HSV hx, will start suppression Valtrex now (3) cardiac anomaly affecting , antepartum Current Visit: Yes Status: Acute Plan to address problem: PT has been seeing [facility] and pt has been followed for possible cardiac anomaly. PT was supposed to get a echo at [facility] but hasn't yet. Since pt is now in the hospital, will have [facility] consult for further recommendations regarding this. Subjective - Subjective Date of service: 10/16/19 Patient reports: no new complaints (PT still having random leaking. No VB. No ctx's. Good FM.) Objective - Vital Signs Vital Signs: Vital Signs - 12hr 10/16/19 10/16/19 10/16/19 03:51 03:56 04:01 Temperature Pulse Rate 83 85 85 Respiratory Rate Blood Pressure Blood Pressure [Left] O2 Sat by Pulse 98 97 99 Oximetry 10/16/19 10/16/19 10/16/19 04:06 04:11 04:16 Temperature Pulse Rate 98 H 87 79 Respiratory Rate Blood Pressure Blood Pressure [Left] O2 Sat by Pulse 98 99 98 Oximetry 10/16/19 10/16/19 10/16/19 04:21 04:26 04:31 Temperature Pulse Rate 81 81 89 Respiratory Rate Blood Pressure Blood Pressure [Left] O2 Sat by Pulse 99 99 98 Oximetry 10/16/19 10/16/19 10/16/19 04:36 04:37 04:41 Temperature 97.9 F Pulse Rate 88 89 89 Respiratory 18 Rate Blood Pressure 102/59 Blood Pressure 102/59 [Left] O2 Sat by Pulse 99 99 98 Oximetry 10/16/19 10/16/19 10/16/19 04:42 04:46 04:51 Temperature Pulse Rate 88 89 87 Respiratory Rate Blood Pressure 98/57 Blood Pressure [Left] O2 Sat by Pulse 100 99 Oximetry 10/16/19 10/16/19 10/16/19 04:56 05:01 05:06 Temperature Pulse Rate 95 H 93 H 89 Respiratory Rate Blood Pressure Blood Pressure [Left] O2 Sat by Pulse 100 100 100 Oximetry 10/16/19 10/16/19 10/16/19 05:11 05:16 05:21 Temperature Pulse Rate 89 93 H 97 H Respiratory Rate Blood Pressure Blood Pressure [Left] O2 Sat by Pulse 100 100 100 Oximetry 10/16/19 10/16/19 10/16/19 05:26 05:31 05:36 Temperature Pulse Rate 87 93 H 89 Respiratory Rate Blood Pressure Blood Pressure [Left] O2 Sat by Pulse 100 100 100 Oximetry 10/16/19 10/16/19 10/16/19 05:41 05:46 05:51 Temperature Pulse Rate 89 103 H 86 Respiratory Rate Blood Pressure 91/55 Blood Pressure [Left] O2 Sat by Pulse 100 100 99 Oximetry 10/16/19 10/16/19 10/16/19 05:56 06:01 06:06 Temperature Pulse Rate 79 84 84 Respiratory Rate Blood Pressure Blood Pressure [Left] O2 Sat by Pulse 100 100 100 Oximetry 10/16/19 10/16/19 10/16/19 06:11 06:16 06:21 Temperature Pulse Rate 102 H 90 87 Respiratory Rate Blood Pressure Blood Pressure [Left] O2 Sat by Pulse 99 98 98 Oximetry 10/16/19 10/16/19 10/16/19 06:26 06:31 06:36 Temperature Pulse Rate 91 H 86 82 Respiratory Rate Blood Pressure Blood Pressure [Left] O2 Sat by Pulse 99 98 100 Oximetry 10/16/19 10/16/19 10/16/19 06:41 06:46 06:51 Temperature Pulse Rate 83 84 83 Respiratory Rate Blood Pressure 100/56 Blood Pressure [Left] O2 Sat by Pulse 99 99 97 Oximetry 10/16/19 10/16/19 10/16/19 06:56 07:01 07:06 Temperature Pulse Rate 83 74 77 Respiratory Rate Blood Pressure Blood Pressure [Left] O2 Sat by Pulse 99 99 100 Oximetry 10/16/19 10/16/19 10/16/19 07:11 07:16 07:21 Temperature Pulse Rate 74 83 80 Respiratory Rate Blood Pressure Blood Pressure [Left] O2 Sat by Pulse 100 100 99 Oximetry 10/16/19 10/16/19 10/16/19 07:26 07:31 07:36 Temperature Pulse Rate 86 82 82 Respiratory Rate Blood Pressure Blood Pressure [Left] O2 Sat by Pulse 99 99 99 Oximetry 10/16/19 10/16/19 10/16/19 07:41 07:42 07:46 Temperature Pulse Rate 76 76 80 Respiratory Rate Blood Pressure 92/54 Blood Pressure [Left] O2 Sat by Pulse 99 99 Oximetry 10/16/19 10/16/19 10/16/19 07:51 07:56 08:01 Temperature Pulse Rate 79 82 85 Respiratory Rate Blood Pressure Blood Pressure [Left] O2 Sat by Pulse 98 98 98 Oximetry 10/16/19 10/16/19 10/16/19 08:06 08:11 08:16 Temperature Pulse Rate 82 78 80 Respiratory Rate Blood Pressure Blood Pressure [Left] O2 Sat by Pulse 98 99 98 Oximetry 10/16/19 10/16/19 10/16/19 08:21 08:26 08:31 Temperature Pulse Rate 77 77 76 Respiratory Rate Blood Pressure Blood Pressure [Left] O2 Sat by Pulse 100 99 99 Oximetry 10/16/19 10/16/19 10/16/19 08:36 08:41 08:46 Temperature Pulse Rate 82 77 87 Respiratory Rate Blood Pressure 105/55 Blood Pressure [Left] O2 Sat by Pulse 98 100 100 Oximetry 10/16/19 10/16/19 10/16/19 08:49 08:51 08:56 Temperature Pulse Rate 87 89 74 Respiratory Rate Blood Pressure Blood Pressure [Left] O2 Sat by Pulse 93 100 100 Oximetry 10/16/19 10/16/19 10/16/19 09:01 09:06 09:11 Temperature Pulse Rate 95 H 80 78 Respiratory Rate Blood Pressure Blood Pressure [Left] O2 Sat by Pulse 100 100 100 Oximetry 10/16/19 10/16/19 10/16/19 09:16 09:21 09:26 Temperature Pulse Rate 79 86 86 Respiratory Rate Blood Pressure Blood Pressure [Left] O2 Sat by Pulse 100 100 100 Oximetry 10/16/19 10/16/19 10/16/19 09:31 09:36 09:41 Temperature Pulse Rate 96 H 84 84 Respiratory Rate Blood Pressure 106/59 Blood Pressure [Left] O2 Sat by Pulse 100 100 100 Oximetry 10/16/19 10/16/19 10/16/19 09:46 09:51 09:56 Temperature Pulse Rate 84 93 H 91 H Respiratory Rate Blood Pressure Blood Pressure [Left] O2 Sat by Pulse 100 100 100 Oximetry 10/16/19 10/16/19 10/16/19 10:01 10:06 10:11 Temperature Pulse Rate 91 H 85 87 Respiratory Rate Blood Pressure Blood Pressure [Left] O2 Sat by Pulse 100 100 100 Oximetry 10/16/19 10/16/19 10/16/19 10:16 10:21 10:26 Temperature Pulse Rate 83 94 H 92 H Respiratory Rate Blood Pressure Blood Pressure [Left] O2 Sat by Pulse 100 100 100 Oximetry 10/16/19 10/16/19 10/16/19 10:31 10:36 10:41 Temperature Pulse Rate 82 82 89 Respiratory Rate Blood Pressure 110/58 Blood Pressure [Left] O2 Sat by Pulse 100 100 100 Oximetry 10/16/19 10/16/19 10/16/19 10:46 10:51 10:56 Temperature Pulse Rate 85 94 H 89 Respiratory Rate Blood Pressure Blood Pressure [Left] O2 Sat by Pulse 100 100 99 Oximetry 10/16/19 10/16/19 10/16/19 11:01 11:06 11:11 Temperature Pulse Rate 92 H 94 H 94 H Respiratory Rate Blood Pressure Blood Pressure [Left] O2 Sat by Pulse 100 100 100 Oximetry 10/16/19 10/16/19 10/16/19 11:16 11:21 11:26 Temperature Pulse Rate 88 91 H 85 Respiratory Rate Blood Pressure Blood Pressure [Left] O2 Sat by Pulse 100 100 100 Oximetry 10/16/19 10/16/19 10/16/19 11:31 11:36 11:41 Temperature Pulse Rate 90 91 H 94 H Respiratory Rate Blood Pressure Blood Pressure [Left] O2 Sat by Pulse 99 98 100 Oximetry 10/16/19 10/16/19 10/16/19 11:43 11:46 11:51 Temperature Pulse Rate 102 H 84 100 H Respiratory Rate Blood Pressure 113/68 Blood Pressure [Left] O2 Sat by Pulse 100 100 Oximetry 10/16/19 10/16/19 10/16/19 11:56 12:01 12:06 Temperature Pulse Rate 84 93 H 107 H Respiratory Rate Blood Pressure Blood Pressure [Left] O2 Sat by Pulse 100 100 100 Oximetry 10/16/19 10/16/19 10/16/19 12:11 12:16 12:21 Temperature Pulse Rate 84 93 H 94 H Respiratory Rate Blood Pressure Blood Pressure [Left] O2 Sat by Pulse 99 99 99 Oximetry 10/16/19 10/16/19 10/16/19 12:26 12:31 12:36 Temperature Pulse Rate 94 H 94 H 97 H Respiratory Rate Blood Pressure Blood Pressure [Left] O2 Sat by Pulse 99 98 98 Oximetry 10/16/19 10/16/19 10/16/19 12:41 12:46 12:51 Temperature Pulse Rate 86 94 H 95 H Respiratory Rate Blood Pressure 85/49 Blood Pressure [Left] O2 Sat by Pulse 98 98 98 Oximetry 10/16/19 10/16/19 10/16/19 12:56 13:01 13:06 Temperature Pulse Rate 99 H 92 H 98 H Respiratory Rate Blood Pressure Blood Pressure [Left] O2 Sat by Pulse 98 98 98 Oximetry 10/16/19 10/16/19 10/16/19 13:11 13:16 13:21 Temperature Pulse Rate 93 H 95 H 114 H Respiratory Rate Blood Pressure Blood Pressure [Left] O2 Sat by Pulse 98 99 100 Oximetry 10/16/19 10/16/19 10/16/19 13:26 13:31 13:36 Temperature Pulse Rate 85 90 97 H Respiratory Rate Blood Pressure Blood Pressure [Left] O2 Sat by Pulse 99 99 100 Oximetry 10/16/19 10/16/19 10/16/19 13:41 13:46 13:51 Temperature Pulse Rate 86 85 81 Respiratory Rate Blood Pressure 100/58 Blood Pressure [Left] O2 Sat by Pulse 98 99 99 Oximetry 10/16/19 10/16/19 10/16/19 13:56 14:01 14:06 Temperature Pulse Rate 88 90 93 H Respiratory Rate Blood Pressure Blood Pressure [Left] O2 Sat by Pulse 99 100 99 Oximetry 10/16/19 10/16/19 10/16/19 14:11 14:16 14:21 Temperature Pulse Rate 91 H 90 91 H Respiratory Rate Blood Pressure Blood Pressure [Left] O2 Sat by Pulse 99 99 99 Oximetry 10/16/19 10/16/19 10/16/19 14:26 14:31 14:36 Temperature Pulse Rate 97 H 87 86 Respiratory Rate Blood Pressure Blood Pressure [Left] O2 Sat by Pulse 99 99 99 Oximetry 10/16/19 10/16/19 10/16/19 14:41 14:46 14:51 Temperature Pulse Rate 90 84 83 Respiratory Rate Blood Pressure 89/46 Blood Pressure [Left] O2 Sat by Pulse 99 99 99 Oximetry 10/16/19 10/16/19 10/16/19 14:56 15:01 15:06 Temperature Pulse Rate 89 87 84 Respiratory Rate Blood Pressure Blood Pressure [Left] O2 Sat by Pulse 99 100 99 Oximetry 10/16/19 10/16/19 10/16/19 15:11 15:16 15:21 Temperature Pulse Rate 82 87 82 Respiratory Rate Blood Pressure Blood Pressure [Left] O2 Sat by Pulse 98 99 99 Oximetry 10/16/19 10/16/19 10/16/19 15:26 15:31 15:36 Temperature Pulse Rate 89 79 85 Respiratory Rate Blood Pressure Blood Pressure [Left] O2 Sat by Pulse 100 100 99 Oximetry 10/16/19 10/16/19 15:41 15:46 Temperature Pulse Rate 78 90 Respiratory Rate Blood Pressure 112/76 Blood Pressure [Left] O2 Sat by Pulse 99 100 Oximetry - Exam Abdomen: Present: normal appearance, soft. Absent: tenderness FHR: auscultation normal, category 1 Uterine Contraction Pattern: Absent - Labs Labs: Abnormal Labs 10/14/19 10/14/19 10/15/19 23:00 Unknown 05:28 RBC 3.54 L RDW 12.6 L Magnesium 5.00 H Urine WBC (Auto) 11.0 H U Epithel Cells (Auto) 17.0 H 10/15/19 10/15/19 10/16/19 14:34 19:19 00:41 RBC RDW Magnesium 5.30 H 5.50 H 5.80 H Urine WBC (Auto) U Epithel Cells (Auto) Laboratory Results - last 24 hr 10/15/19 10/16/19 19:19 00:41 Magnesium 5.50 H 5.80 H
[2019-10-16] MEDS: valACYclovir 500 MG TAB PO SCH (22:06)
[2019-10-17] MEDS: AMPICILLIN/NS 1 GM/50 ML 1 GM/50 ML BAG IV SCH ×2 (00:20→04:00)
[2019-10-17] MEDS: LACTATED RINGERS 1,000 ML IV SCH ×3 (00:33→17:29)
[2019-10-17] MEDS ORDERED: AMOXICILLIN 500 MG CAP PO SCH ×2 (06:00→08:00)
[2019-10-17 09:38] LABS: Basophils % (Auto) 0.2 % (0.0-1.8); Eosinophils % (Auto) 0.1 % (0.0-4.3); Hematocrit 27.4 % (30.3-42.9); Hemoglobin 9.4 gm/dl (10.1-14.3); Lymphocytes % (Auto) 18.6 % (13.4-35.0); Mean Corpuscular HGB Conc 34 % (30-34); Mean Corpuscular Volume 95 fl (79-97); Monocytes # (Auto) 0.8 K/mm3 (0.0-0.8); Monocytes % (Auto) 7.7 % (0.0-7.3); Platelet Count 279 K/mm3 (140-440); Red Cell Distribution Width 12.5 % (13.2-15.2)
[2019-10-17] MEDS: AMOXICILLIN 500 MG CAP PO SCH ×2 (10:55→14:32)
[2019-10-17] MEDS: valACYclovir 500 MG TAB PO SCH (10:55)
--- NOTE | 2019-10-17 17:17 | Progress Note ---
Assessment and Plan - Patient Problems (1) with 25 to 26 completed weeks gestation Current Visit: Yes Status: Acute (2) ROM (rupture of membranes), premature Current Visit: Yes Status: Acute Plan to address problem: patient is under mgt for PPROM and has no new complaints today. MFM consult/ review not on file. Subjective - Subjective Date of service: 10/17/19 Principal diagnosis: PPROM Interval history: Patient stated she had a gush of fluid come out of her vagina 10/14/2019 and she proceeded to come to L&D where she was comfirmed to have ruptured her membranes. . 1 term delivery. second was 34+wks. Both children are well. One miscarriage. AILYN 01/27/2020.She denied contractions, vaginal bleeding and fever. Fetus is active. Patient reports: loss of fluid, movement normal, no new complaints (PT still having random leaking. No VB. No ctx's. Good FM.), no vaginal bleeding, no contractions Objective - Vital Signs Vital Signs: Vital Signs - 12hr 10/17/19 10/17/19 10/17/19 05:14 05:19 05:23 Temperature Pulse Rate 80 70 71 Respiratory Rate Blood Pressure Blood Pressure [Right] O2 Sat by Pulse 99 100 100 Oximetry 10/17/19 10/17/19 10/17/19 05:29 05:33 05:38 Temperature Pulse Rate 68 62 70 Respiratory Rate Blood Pressure Blood Pressure [Right] O2 Sat by Pulse 100 100 100 Oximetry 10/17/19 10/17/19 10/17/19 05:41 05:44 05:49 Temperature Pulse Rate 66 89 74 Respiratory Rate Blood Pressure 105/50 Blood Pressure [Right] O2 Sat by Pulse 99 99 Oximetry 10/17/19 10/17/19 10/17/19 05:54 05:59 06:03 Temperature Pulse Rate 80 67 78 Respiratory Rate Blood Pressure Blood Pressure [Right] O2 Sat by Pulse 98 100 99 Oximetry 10/17/19 10/17/19 10/17/19 06:08 06:13 06:19 Temperature Pulse Rate 75 68 62 Respiratory Rate Blood Pressure Blood Pressure [Right] O2 Sat by Pulse 100 100 99 Oximetry 10/17/19 10/17/19 10/17/19 06:23 06:29 06:33 Temperature Pulse Rate 65 63 66 Respiratory Rate Blood Pressure Blood Pressure [Right] O2 Sat by Pulse 100 100 99 Oximetry 10/17/19 10/17/19 10/17/19 06:39 06:41 06:43 Temperature Pulse Rate 65 68 72 Respiratory Rate Blood Pressure 101/57 Blood Pressure [Right] O2 Sat by Pulse 99 99 Oximetry 10/17/19 10/17/19 10/17/19 06:49 06:53 06:58 Temperature Pulse Rate 69 70 70 Respiratory Rate Blood Pressure Blood Pressure [Right] O2 Sat by Pulse 100 99 98 Oximetry 10/17/19 10/17/19 10/17/19 07:04 07:08 07:14 Temperature Pulse Rate 72 72 77 Respiratory Rate Blood Pressure Blood Pressure [Right] O2 Sat by Pulse 99 98 99 Oximetry 10/17/19 10/17/19 10/17/19 07:19 07:24 07:29 Temperature Pulse Rate 79 74 72 Respiratory Rate Blood Pressure Blood Pressure [Right] O2 Sat by Pulse 99 99 99 Oximetry 10/17/19 10/17/19 10/17/19 07:34 07:39 07:44 Temperature Pulse Rate 72 82 67 Respiratory Rate Blood Pressure Blood Pressure [Right] O2 Sat by Pulse 100 99 99 Oximetry 10/17/19 10/17/19 10/17/19 07:49 07:54 07:59 Temperature Pulse Rate 69 68 63 Respiratory Rate Blood Pressure Blood Pressure [Right] O2 Sat by Pulse 99 100 100 Oximetry 10/17/19 10/17/19 10/17/19 08:04 08:09 08:14 Temperature Pulse Rate 68 69 66 Respiratory Rate Blood Pressure Blood Pressure [Right] O2 Sat by Pulse 99 100 100 Oximetry 10/17/19 10/17/19 10/17/19 08:18 08:24 08:29 Temperature Pulse Rate 71 71 70 Respiratory Rate Blood Pressure Blood Pressure [Right] O2 Sat by Pulse 99 99 100 Oximetry 10/17/19 10/17/19 10/17/19 08:34 08:39 08:42 Temperature Pulse Rate 66 75 72 Respiratory Rate Blood Pressure 98/50 Blood Pressure [Right] O2 Sat by Pulse 100 99 Oximetry 10/17/19 10/17/19 10/17/19 08:43 08:48 08:54 Temperature Pulse Rate 66 68 64 Respiratory Rate Blood Pressure Blood Pressure [Right] O2 Sat by Pulse 100 99 100 Oximetry 10/17/19 10/17/19 10/17/19 08:58 09:04 09:09 Temperature Pulse Rate 80 66 66 Respiratory Rate Blood Pressure Blood Pressure [Right] O2 Sat by Pulse 100 100 99 Oximetry 10/17/19 10/17/19 10/17/19 09:13 09:19 09:24 Temperature Pulse Rate 65 66 70 Respiratory Rate Blood Pressure Blood Pressure [Right] O2 Sat by Pulse 100 100 100 Oximetry 10/17/19 10/17/19 10/17/19 09:29 09:34 09:39 Temperature Pulse Rate 71 70 72 Respiratory Rate Blood Pressure Blood Pressure [Right] O2 Sat by Pulse 100 100 100 Oximetry 10/17/19 10/17/19 10/17/19 09:44 09:49 09:53 Temperature Pulse Rate 73 67 70 Respiratory Rate Blood Pressure Blood Pressure [Right] O2 Sat by Pulse 100 99 100 Oximetry 10/17/19 10/17/19 10/17/19 09:59 10:09 10:14 Temperature Pulse Rate 66 41 L 75 Respiratory Rate Blood Pressure Blood Pressure [Right] O2 Sat by Pulse 100 99 99 Oximetry 10/17/19 10/17/19 10/17/19 10:16 10:19 10:23 Temperature Pulse Rate 69 68 71 Respiratory 18 Rate Blood Pressure Blood Pressure 105/63 [Right] O2 Sat by Pulse 83 L 100 100 Oximetry 10/17/19 10/17/19 10/17/19 10:24 10:29 10:31 Temperature Pulse Rate 66 76 71 Respiratory Rate Blood Pressure 105/63 Blood Pressure [Right] O2 Sat by Pulse 100 100 Oximetry 10/17/19 10/17/19 10/17/19 10:35 10:40 10:45 Temperature Pulse Rate 74 71 84 Respiratory Rate Blood Pressure Blood Pressure [Right] O2 Sat by Pulse 100 100 100 Oximetry 10/17/19 10/17/19 10/17/19 10:50 10:55 11:00 Temperature Pulse Rate 74 87 83 Respiratory Rate Blood Pressure Blood Pressure [Right] O2 Sat by Pulse 100 100 99 Oximetry 10/17/19 10/17/19 10/17/19 11:05 11:10 11:15 Temperature Pulse Rate 86 76 73 Respiratory Rate Blood Pressure Blood Pressure [Right] O2 Sat by Pulse 100 100 100 Oximetry 10/17/19 10/17/19 10/17/19 11:20 11:25 11:30 Temperature Pulse Rate 82 75 81 Respiratory Rate Blood Pressure Blood Pressure [Right] O2 Sat by Pulse 100 100 100 Oximetry 10/17/19 10/17/19 10/17/19 11:35 11:40 11:45 Temperature Pulse Rate 89 99 H 86 Respiratory Rate Blood Pressure Blood Pressure [Right] O2 Sat by Pulse 100 100 99 Oximetry 10/17/19 10/17/19 10/17/19 11:50 11:55 12:00 Temperature Pulse Rate 91 H 84 87 Respiratory Rate Blood Pressure Blood Pressure [Right] O2 Sat by Pulse 99 100 99 Oximetry 10/17/19 10/17/19 10/17/19 12:05 12:10 12:15 Temperature Pulse Rate 99 H 81 82 Respiratory Rate Blood Pressure Blood Pressure [Right] O2 Sat by Pulse 99 100 100 Oximetry 10/17/19 10/17/19 10/17/19 12:20 12:25 12:30 Temperature Pulse Rate 89 91 H 78 Respiratory Rate Blood Pressure Blood Pressure [Right] O2 Sat by Pulse 100 99 100 Oximetry 10/17/19 10/17/19 10/17/19 12:35 12:40 12:45 Temperature Pulse Rate 83 90 87 Respiratory Rate Blood Pressure Blood Pressure [Right] O2 Sat by Pulse 99 100 99 Oximetry 10/17/19 10/17/19 10/17/19 12:49 12:55 12:59 Temperature Pulse Rate 81 79 76 Respiratory Rate Blood Pressure Blood Pressure [Right] O2 Sat by Pulse 99 100 100 Oximetry 10/17/19 10/17/19 10/17/19 13:05 13:10 13:15 Temperature Pulse Rate 74 105 H 74 Respiratory Rate Blood Pressure Blood Pressure [Right] O2 Sat by Pulse 100 100 100 Oximetry 10/17/19 10/17/19 10/17/19 13:20 13:25 13:30 Temperature Pulse Rate 69 81 83 Respiratory Rate Blood Pressure Blood Pressure [Right] O2 Sat by Pulse 99 99 99 Oximetry 10/17/19 10/17/19 10/17/19 13:35 13:40 13:45 Temperature Pulse Rate 76 79 81 Respiratory Rate Blood Pressure Blood Pressure [Right] O2 Sat by Pulse 100 98 98 Oximetry 10/17/19 10/17/19 10/17/19 13:50 13:55 14:00 Temperature Pulse Rate 78 79 74 Respiratory Rate Blood Pressure Blood Pressure [Right] O2 Sat by Pulse 98 98 97 Oximetry 10/17/19 10/17/19 10/17/19 14:05 14:10 14:15 Temperature Pulse Rate 79 93 H 76 Respiratory Rate Blood Pressure Blood Pressure [Right] O2 Sat by Pulse 98 100 100 Oximetry 10/17/19 10/17/19 10/17/19 14:20 14:25 14:30 Temperature Pulse Rate 67 75 90 Respiratory Rate Blood Pressure Blood Pressure [Right] O2 Sat by Pulse 100 100 100 Oximetry 10/17/19 10/17/19 10/17/19 14:34 14:35 14:36 Temperature 97.9 F Pulse Rate 71 85 73 Respiratory 18 Rate Blood Pressure 99/58 Blood Pressure [Right] O2 Sat by Pulse 100 98 Oximetry 10/17/19 10/17/19 10/17/19 14:40 14:45 14:50 Temperature Pulse Rate 69 70 86 Respiratory Rate Blood Pressure Blood Pressure [Right] O2 Sat by Pulse 100 100 100 Oximetry 10/17/19 10/17/19 10/17/19 15:05 15:06 15:11 Temperature Pulse Rate 59 L 68 75 Respiratory Rate Blood Pressure Blood Pressure [Right] O2 Sat by Pulse 93 100 100 Oximetry 10/17/19 10/17/19 10/17/19 15:16 15:21 15:26 Temperature Pulse Rate 77 76 74 Respiratory Rate Blood Pressure Blood Pressure [Right] O2 Sat by Pulse 100 100 100 Oximetry 10/17/19 10/17/19 10/17/19 15:31 15:36 15:41 Temperature Pulse Rate 73 71 70 Respiratory Rate Blood Pressure 100/57 Blood Pressure [Right] O2 Sat by Pulse 100 100 100 Oximetry 10/17/19 10/17/19 10/17/19 15:46 15:51 15:56 Temperature Pulse Rate 72 69 65 Respiratory Rate Blood Pressure Blood Pressure [Right] O2 Sat by Pulse 100 100 100 Oximetry 10/17/19 10/17/19 10/17/19 16:01 16:06 16:11 Temperature Pulse Rate 78 73 83 Respiratory Rate Blood Pressure Blood Pressure [Right] O2 Sat by Pulse 99 100 100 Oximetry 10/17/19 10/17/19 10/17/19 16:16 16:21 16:26 Temperature Pulse Rate 75 72 86 Respiratory Rate Blood Pressure Blood Pressure [Right] O2 Sat by Pulse 100 100 100 Oximetry 10/17/19 10/17/19 10/17/19 16:31 16:36 16:41 Temperature Pulse Rate 81 69 75 Respiratory Rate Blood Pressure 108/76 Blood Pressure [Right] O2 Sat by Pulse 100 100 100 Oximetry 10/17/19 10/17/19 10/17/19 16:46 16:51 16:56 Temperature Pulse Rate 85 88 91 H Respiratory Rate Blood Pressure Blood Pressure [Right] O2 Sat by Pulse 100 100 100 Oximetry 10/17/19 10/17/19 10/17/19 17:01 17:06 17:11 Temperature Pulse Rate 99 H 90 93 H Respiratory Rate Blood Pressure Blood Pressure [Right] O2 Sat by Pulse 100 100 100 Oximetry - Exam Lungs: Normal air movement Uterus: Present: normal. Absent: tenderness FHR: auscultation normal Extremities: normal - Labs Labs: Abnormal Labs 10/14/19 10/14/19 10/15/19 23:00 Unknown 05:28 RBC 3.54 L Hgb Hct RDW 12.6 L [place] % (Auto) Seg Neutrophils % Seg Neutrophils # Magnesium 5.00 H Urine WBC (Auto) 11.0 H U Epithel Cells (Auto) 17.0 H 10/15/19 10/15/19 10/16/19 14:34 19:19 00:41 RBC Hgb Hct RDW [place] % (Auto) Seg Neutrophils % Seg Neutrophils # Magnesium 5.30 H 5.50 H 5.80 H Urine WBC (Auto) U Epithel Cells (Auto) 10/17/19 08:42 RBC 2.90 L Hgb 9.4 L Hct 27.4 L RDW 12.5 L [place] % (Auto) 7.7 H Seg Neutrophils % 73.4 H Seg Neutrophils # 7.9 H Magnesium Urine WBC (Auto) U Epithel Cells (Auto) Laboratory Results - last 24 hr 10/17/19 10/17/19 10/17/19 08:42 08:42 08:42 WBC 10.7 RBC 2.90 L Hgb 9.4 L Hct 27.4 L MCV 95 MCH 32 MCHC 34 RDW 12.5 L Plt Count 279 Lymph % (Auto) 18.6 [place] % (Auto) 7.7 H Eos % (Auto) 0.1 Baso % (Auto) 0.2 Lymph # 2.0 [place] # 0.8 Eos # 0.0 Baso # 0.0 Seg Neutrophils % 73.4 H Seg Neutrophils # 7.9 H Fasting Glucose Glucose Tolerance Syphilis IgG Antibody Non-reactive Hep Bs Antigen Non-reactive HIV 1&2 Antibody Rapid Non react HIV P24 Antigen Non react Rubella IgG Antibody Immune 10/17/19 10/17/19 08:42 Unknown WBC RBC Hgb Hct MCV MCH MCHC RDW Plt Count Lymph % (Auto) [place] % (Auto) Eos % (Auto) Baso % (Auto) Lymph # [place] # Eos # Baso # Seg Neutrophils % Seg Neutrophils # Fasting Glucose 84 Glucose Tolerance Syphilis IgG Antibody Hep Bs Antigen HIV 1&2 Antibody Rapid HIV P24 Antigen Rubella IgG Antibody
[2019-10-18] MEDS: AMOXICILLIN 500 MG CAP PO SCH ×3 (00:02→19:07)
[2019-10-18] MEDS: valACYclovir 500 MG TAB PO SCH ×3 (00:02→21:20)
[2019-10-18] MEDS: LACTATED RINGERS 1,000 ML IV SCH ×2 (09:25→23:56)
[2019-10-18 10:50] LABS: Glucose,Fasting Gestational 63
--- NOTE | 2019-10-18 13:38 | Progress Note ---
Assessment and Plan - Patient Problems (1) premature rupture of membranes (PPROM) with unknown onset of labor Current Visit: Yes Status: Acute Plan to address problem: PT with PPROM at 25.4 weeks. Cont expectant care for now and her PO ABx. PT is MgSO4 and Betamethasone complete. Glucola pending. Check BPP today. (2) History of herpes genitalis Current Visit: Yes Status: Acute Plan to address problem: cont Valtrex suppression. (3) cardiac anomaly affecting , antepartum Current Visit: Yes Status: Acute Plan to address problem: Awaiting APA input regarding management for this. Subjective - Subjective Date of service: 10/18/19 Principal diagnosis: PPROM Patient reports: loss of fluid, movement normal, no new complaints (PT still having random leaking. No VB. No ctx's. Good FM.), no vaginal bleeding, no contractions Objective - Vital Signs Vital Signs: Vital Signs - 12hr 10/18/19 10/18/19 10/18/19 01:37 01:42 01:47 Temperature Pulse Rate 76 83 72 Blood Pressure O2 Sat by Pulse 100 100 99 Oximetry 10/18/19 10/18/19 10/18/19 01:52 01:57 02:02 Temperature Pulse Rate 76 76 72 Blood Pressure O2 Sat by Pulse 99 99 90 Oximetry 10/18/19 10/18/19 10/18/19 02:07 02:12 02:17 Temperature Pulse Rate 70 66 72 Blood Pressure O2 Sat by Pulse 100 100 0 L Oximetry 10/18/19 10/18/19 10/18/19 02:21 02:26 02:31 Temperature Pulse Rate 65 68 68 Blood Pressure O2 Sat by Pulse 100 100 100 Oximetry 10/18/19 10/18/19 10/18/19 02:36 02:37 02:41 Temperature Pulse Rate 80 87 63 Blood Pressure 89/52 O2 Sat by Pulse 100 93 99 Oximetry 10/18/19 10/18/19 10/18/19 02:46 02:51 02:56 Temperature Pulse Rate 63 67 73 Blood Pressure O2 Sat by Pulse 100 99 98 Oximetry 10/18/19 10/18/19 10/18/19 03:01 03:06 03:11 Temperature Pulse Rate 71 69 68 Blood Pressure O2 Sat by Pulse 98 99 100 Oximetry 10/18/19 10/18/19 10/18/19 03:16 03:21 03:26 Temperature Pulse Rate 76 69 64 Blood Pressure O2 Sat by Pulse 100 100 99 Oximetry 10/18/19 10/18/19 10/18/19 03:31 03:36 03:41 Temperature Pulse Rate 64 64 64 Blood Pressure 84/43 O2 Sat by Pulse 99 99 99 Oximetry 10/18/19 10/18/19 10/18/19 03:46 03:51 03:56 Temperature Pulse Rate 63 64 66 Blood Pressure O2 Sat by Pulse 99 99 99 Oximetry 10/18/19 10/18/19 10/18/19 04:01 04:06 04:11 Temperature Pulse Rate 68 62 65 Blood Pressure O2 Sat by Pulse 99 99 99 Oximetry 10/18/19 10/18/19 10/18/19 04:16 04:21 04:26 Temperature Pulse Rate 71 71 67 Blood Pressure O2 Sat by Pulse 99 100 99 Oximetry 10/18/19 10/18/19 10/18/19 04:31 04:36 04:41 Temperature Pulse Rate 66 70 65 Blood Pressure 93/51 O2 Sat by Pulse 99 99 99 Oximetry 10/18/19 10/18/19 10/18/19 04:46 04:51 04:56 Temperature Pulse Rate 68 72 71 Blood Pressure O2 Sat by Pulse 99 98 100 Oximetry 10/18/19 10/18/19 10/18/19 05:01 05:06 05:11 Temperature Pulse Rate 71 72 67 Blood Pressure O2 Sat by Pulse 99 99 99 Oximetry 10/18/19 10/18/19 10/18/19 05:16 05:21 05:26 Temperature Pulse Rate 70 68 71 Blood Pressure O2 Sat by Pulse 99 99 99 Oximetry 10/18/19 10/18/19 10/18/19 05:31 05:40 05:45 Temperature Pulse Rate 72 76 71 Blood Pressure O2 Sat by Pulse 100 100 100 Oximetry 10/18/19 10/18/19 10/18/19 05:50 05:55 06:00 Temperature Pulse Rate 63 68 69 Blood Pressure O2 Sat by Pulse 100 100 99 Oximetry 10/18/19 10/18/19 10/18/19 06:05 06:10 06:15 Temperature Pulse Rate 66 67 71 Blood Pressure O2 Sat by Pulse 99 99 100 Oximetry 10/18/19 10/18/19 10/18/19 06:20 06:25 06:30 Temperature Pulse Rate 64 70 69 Blood Pressure O2 Sat by Pulse 100 100 99 Oximetry 10/18/19 10/18/19 10/18/19 06:35 06:40 06:45 Temperature Pulse Rate 76 74 70 Blood Pressure O2 Sat by Pulse 99 99 99 Oximetry 10/18/19 10/18/19 10/18/19 06:50 06:55 06:57 Temperature Pulse Rate 68 69 70 Blood Pressure O2 Sat by Pulse 99 100 91 Oximetry 10/18/19 10/18/19 10/18/19 07:02 07:07 07:12 Temperature Pulse Rate 43 L 69 61 Blood Pressure O2 Sat by Pulse 62 L 100 100 Oximetry 10/18/19 10/18/19 10/18/19 07:17 07:22 07:27 Temperature Pulse Rate 69 65 68 Blood Pressure O2 Sat by Pulse 100 100 100 Oximetry 10/18/19 10/18/19 10/18/19 07:32 07:37 07:42 Temperature Pulse Rate 70 68 72 Blood Pressure O2 Sat by Pulse 100 100 100 Oximetry 10/18/19 10/18/19 10/18/19 07:47 07:52 07:57 Temperature Pulse Rate 66 78 66 Blood Pressure O2 Sat by Pulse 100 100 99 Oximetry 10/18/19 10/18/19 10/18/19 08:02 08:07 08:12 Temperature Pulse Rate 64 66 70 Blood Pressure O2 Sat by Pulse 99 99 99 Oximetry 10/18/19 10/18/19 10/18/19 08:17 08:22 08:27 Temperature Pulse Rate 70 69 68 Blood Pressure O2 Sat by Pulse 99 99 99 Oximetry 10/18/19 10/18/19 10/18/19 08:32 08:37 08:42 Temperature Pulse Rate 68 74 71 Blood Pressure O2 Sat by Pulse 99 99 99 Oximetry 10/18/19 10/18/19 10/18/19 08:44 08:50 08:51 Temperature Pulse Rate 144 H Blood Pressure O2 Sat by Pulse 83 L 84 84 Oximetry 10/18/19 10/18/19 10/18/19 08:52 08:55 08:56 Temperature Pulse Rate 76 74 80 Blood Pressure 101/61 96/55 O2 Sat by Pulse 100 Oximetry 10/18/19 09:02 Temperature 98.3 F Pulse Rate 74 Blood Pressure O2 Sat by Pulse Oximetry - Exam Abdomen: Present: soft. Absent: tenderness FHR: category 1 Uterine Contraction Pattern: Absent - Labs Labs: Abnormal Labs 10/14/19 10/14/19 10/15/19 23:00 Unknown 05:28 RBC 3.54 L Hgb Hct RDW 12.6 L [place] % (Auto) Seg Neutrophils % Seg Neutrophils # Magnesium 5.00 H Urine WBC (Auto) 11.0 H U Epithel Cells (Auto) 17.0 H 10/15/19 10/15/19 10/16/19 14:34 19:19 00:41 RBC Hgb Hct RDW [place] % (Auto) Seg Neutrophils % Seg Neutrophils # Magnesium 5.30 H 5.50 H 5.80 H Urine WBC (Auto) U Epithel Cells (Auto) 10/17/19 08:42 RBC 2.90 L Hgb 9.4 L Hct 27.4 L RDW 12.5 L [place] % (Auto) 7.7 H Seg Neutrophils % 73.4 H Seg Neutrophils # 7.9 H Magnesium Urine WBC (Auto) U Epithel Cells (Auto) Laboratory Results - last 24 hr 10/18/19 Unknown Fasting Glucose 63 Glucose Tolerance
--- NOTE | 2019-10-18 18:49 | Ultrasound Report ---
Biophysical profile INDICATION: Premature ruptured membranes COMPARISON: None FINDINGS: breathing movement: 2/2 movement: 2/2 posture and tone: 2/2 Qualitative amniotic fluid volume: 0/2 Amniotic fluid index is 1.7 cm. IMPRESSION: Total score for biophysical profile is 6/8 heart rate is 154 bpm Signer Name: Sherman Alexander MD Signed: 10/18/2019 6:45 PM Workstation Name: [id number]
[2019-10-19] MEDS: AMOXICILLIN 500 MG CAP PO SCH ×5 (04:00→22:29)
[2019-10-19] MEDS: LACTATED RINGERS 1,000 ML IV SCH (08:11)
[2019-10-19] MEDS ORDERED: DOCUSATE SODIUM 100 MG CAP PO PRN (09:00)
[2019-10-19] MEDS: valACYclovir 500 MG TAB PO SCH ×2 (09:43→22:29)
[2019-10-19] MEDS: FERROUS SULFATE 325 MG TAB PO SCH ×2 (09:43→22:28)
[2019-10-19] MEDS: ONDANSETRON 4 MG/2 ML INJ IV PRN (10:24)
[2019-10-19] MEDS: ACETAMINOPHEN 325 MG TAB PO PRN (14:08)
--- NOTE | 2019-10-19 18:29 | Progress Note ---
Assessment and Plan - Patient Problems (1) premature rupture of membranes (PPROM) with unknown onset of labor Current Visit: Yes Status: Acute Plan to address problem: stable with PPROM at 25.5 weeks. Cont expectant care and Abx. PT Will be done with Abx on Monday. (2) History of herpes genitalis Current Visit: Yes Status: Acute Plan to address problem: cont Valtrex (3) cardiac anomaly affecting , antepartum Current Visit: Yes Status: Acute Plan to address problem: RN yesterday spoke with Janusz and noted that they are comfortable having baby deliver here and would then send baby out if need be for Cardiac echo and/or for further care. Subjective - Subjective Date of service: 10/19/19 Principal diagnosis: PPROM Patient reports: loss of fluid, movement normal, no new complaints (PT still having random leaking. No VB. No ctx's. Good FM.), no vaginal bleeding, no contractions Objective - Vital Signs Vital Signs: Vital Signs - 12hr 10/19/19 10/19/19 10/19/19 07:55 07:57 07:58 Temperature 98 F Pulse Rate 89 93 H 80 Respiratory 16 Rate Blood Pressure 105/52 Blood Pressure 105/52 [Right] O2 Sat by Pulse 100 100 Oximetry 10/19/19 10/19/19 10/19/19 08:02 08:07 08:12 Temperature Pulse Rate 82 73 86 Respiratory Rate Blood Pressure Blood Pressure [Right] O2 Sat by Pulse 100 100 100 Oximetry 10/19/19 10/19/19 10/19/19 08:17 08:22 08:27 Temperature Pulse Rate 79 71 90 Respiratory Rate Blood Pressure Blood Pressure [Right] O2 Sat by Pulse 99 92 99 Oximetry 10/19/19 10/19/19 10/19/19 08:29 08:32 10:03 Temperature 98.6 F Pulse Rate 78 85 Respiratory 12 Rate Blood Pressure 94/53 Blood Pressure [Right] O2 Sat by Pulse 100 100 Oximetry 10/19/19 10/19/19 10/19/19 10:07 10:34 11:04 Temperature 97.7 F Pulse Rate 70 75 Respiratory Rate Blood Pressure 89/46 91/51 Blood Pressure [Right] O2 Sat by Pulse Oximetry 10/19/19 10/19/19 10/19/19 11:34 12:12 13:04 Temperature 97.7 F Pulse Rate 76 101 H Respiratory Rate Blood Pressure 97/55 118/53 Blood Pressure [Right] O2 Sat by Pulse Oximetry 10/19/19 10/19/19 10/19/19 13:55 13:56 14:03 Temperature 97.9 F Pulse Rate 86 87 Respiratory 14 Rate Blood Pressure 109/58 104/59 Blood Pressure [Right] O2 Sat by Pulse Oximetry 10/19/19 10/19/19 10/19/19 14:34 15:03 15:33 Temperature Pulse Rate 86 85 70 Respiratory Rate Blood Pressure 85/47 96/54 96/50 Blood Pressure [Right] O2 Sat by Pulse Oximetry 10/19/19 10/19/19 10/19/19 16:15 16:33 17:03 Temperature Pulse Rate 73 73 81 Respiratory Rate Blood Pressure 100/54 100/55 100/57 Blood Pressure [Right] O2 Sat by Pulse Oximetry 10/19/19 18:04 Temperature Pulse Rate 91 H Respiratory Rate Blood Pressure 130/58 Blood Pressure [Right] O2 Sat by Pulse Oximetry - Exam Abdomen: Present: normal appearance. Absent: tenderness FHR: category 1 (for 25 weeks) - Labs Labs: Abnormal Labs 10/14/19 10/14/19 10/15/19 23:00 Unknown 05:28 RBC 3.54 L Hgb Hct RDW 12.6 L [place] % (Auto) Seg Neutrophils % Seg Neutrophils # POC Glucose Magnesium 5.00 H Urine WBC (Auto) 11.0 H U Epithel Cells (Auto) 17.0 H 10/15/19 10/15/19 10/16/19 14:34 19:19 00:41 RBC Hgb Hct RDW [place] % (Auto) Seg Neutrophils % Seg Neutrophils # POC Glucose Magnesium 5.30 H 5.50 H 5.80 H Urine WBC (Auto) U Epithel Cells (Auto) 10/17/19 10/18/19 08:42 10:46 RBC 2.90 L Hgb 9.4 L Hct 27.4 L RDW 12.5 L [place] % (Auto) 7.7 H Seg Neutrophils % 73.4 H Seg Neutrophils # 7.9 H POC Glucose 63 L Magnesium Urine WBC (Auto) U Epithel Cells (Auto) Laboratory Results - last 24 hr 10/18/19 10:46 POC Glucose 63 L
[2019-10-20] MEDS: LACTATED RINGERS 1,000 ML IV SCH ×4 (01:10→22:18)
[2019-10-20] MEDS: AMOXICILLIN 500 MG CAP PO SCH ×3 (06:54→22:13)
[2019-10-20] MEDS: FERROUS SULFATE 325 MG TAB PO SCH ×2 (09:53→22:13)
[2019-10-20] MEDS: valACYclovir 500 MG TAB PO SCH ×2 (09:53→22:13)
--- NOTE | 2019-10-20 10:51 | Progress Note ---
Assessment and Plan - Patient Problems (1) premature rupture of membranes (PPROM) with unknown onset of labor Current Visit: Yes Status: Acute Plan to address problem: PT is stable with PPROM at 25.6 weeks and on PO Abx, which can be stopped to bee once 7 full days of Abx are complete. Pt is already Betamethasone complete and has had MgSO4 already. Another BPP for tomorrow also ordered. Would do BPPs every monday/. (2) History of herpes genitalis Current Visit: Yes Status: Acute Plan to address problem: Cont Valtrex suppression. (3) cardiac anomaly affecting , antepartum Current Visit: Yes Status: Acute Plan to address problem: Would get and [facility] report from the office tomorrow just to let Janusz aware of the specifics of the suspected cardiac defect Subjective - Subjective Date of service: 10/20/19 Principal diagnosis: PPROM Patient reports: loss of fluid, movement normal, no new complaints (PT still having random leaking. No VB. No ctx's. Good FM. Some diarrhea but pt is eating without difficulty.), no vaginal bleeding, no contractions Objective - Vital Signs Vital Signs: Vital Signs - 12hr 10/19/19 10/19/19 10/20/19 23:02 23:35 00:05 Temperature 98.6 F Pulse Rate 78 76 Respiratory Rate Blood Pressure 96/48 104/52 10/20/19 10/20/19 10/20/19 01:03 01:13 01:34 Temperature 98.4 F Pulse Rate 72 75 Respiratory Rate Blood Pressure 102/58 86/50 10/20/19 10/20/19 10/20/19 03:04 03:34 04:04 Temperature Pulse Rate 72 78 64 Respiratory Rate Blood Pressure 86/47 81/46 92/51 10/20/19 10/20/19 10/20/19 04:36 05:04 05:34 Temperature Pulse Rate 74 76 72 Respiratory Rate Blood Pressure 79/40 86/49 99/51 10/20/19 10/20/19 10/20/19 06:06 06:34 06:56 Temperature 97.7 F Pulse Rate 69 73 Respiratory Rate Blood Pressure 86/50 91/50 10/20/19 10/20/19 10/20/19 07:04 07:21 07:23 Temperature 97.9 F Pulse Rate 68 73 Respiratory 14 Rate Blood Pressure 80/38 74/42 10/20/19 10/20/19 10/20/19 07:33 08:35 09:04 Temperature Pulse Rate 80 80 74 Respiratory Rate Blood Pressure 74/42 108/51 92/52 10/20/19 10/20/19 10/20/19 09:34 09:58 10:04 Temperature 97.2 F L Pulse Rate 83 76 Respiratory Rate Blood Pressure 93/49 91/48 10/20/19 10:35 Temperature Pulse Rate 77 Respiratory Rate Blood Pressure 91/50 - Exam Abdomen: Present: normal appearance. Absent: tenderness FHR: auscultation normal Uterine Contraction Pattern: Absent - Labs Labs: Abnormal Labs 10/14/19 10/14/19 10/15/19 23:00 Unknown 05:28 RBC 3.54 L Hgb Hct RDW 12.6 L [place] % (Auto) Seg Neutrophils % Seg Neutrophils # POC Glucose Magnesium 5.00 H Urine WBC (Auto) 11.0 H U Epithel Cells (Auto) 17.0 H 10/15/19 10/15/19 10/16/19 14:34 19:19 00:41 RBC Hgb Hct RDW [place] % (Auto) Seg Neutrophils % Seg Neutrophils # POC Glucose Magnesium 5.30 H 5.50 H 5.80 H Urine WBC (Auto) U Epithel Cells (Auto) 10/17/19 10/18/19 08:42 10:46 RBC 2.90 L Hgb 9.4 L Hct 27.4 L RDW 12.5 L [place] % (Auto) 7.7 H Seg Neutrophils % 73.4 H Seg Neutrophils # 7.9 H POC Glucose 63 L Magnesium Urine WBC (Auto) U Epithel Cells (Auto)
[2019-10-20] MEDS: NIFEdipine*For Tocolysis only* 10 MG CAPSULE PO PRN (18:10)
[2019-10-20] MEDS: ACETAMINOPHEN 325 MG TAB PO PRN (21:31)
[2019-10-21] MEDS: AMOXICILLIN 500 MG CAP PO SCH ×3 (06:15→23:06)
[2019-10-21] MEDS: LACTATED RINGERS 1,000 ML IV SCH ×2 (07:42→14:39)
[2019-10-21] MEDS: valACYclovir 500 MG TAB PO SCH ×2 (09:53→23:06)
[2019-10-21] MEDS: FERROUS SULFATE 325 MG TAB PO SCH ×2 (09:53→23:06)
--- NOTE | 2019-10-21 11:09 | Ultrasound Report ---
Biophysical profile Ultrasound HISTORY: PPROM. TECHNIQUE: Grayscale and color imaging performed. COMPARISON: None FINDINGS: The fetus received a score of 2 out of 2 for breathing movement, movement, and posture/tone . The KAREN was 0 out of 2. Total score was 6 out of 8. Heart rate is 162 bpm. IMPRESSION: BPP score of 6 out of 8 with only abnormal score with KAREN as above. Signer Name: Tommie Alberto MD Signed: 10/21/2019 11:05 AM Workstation Name: [id number]
--- NOTE | 2019-10-21 11:25 | Progress Note ---
Assessment and Plan PPROM conservative management delivery for maternal/ indication [place] [facility] Subjective - Subjective Date of service: 10/21/19 Principal diagnosis: PPROM Interval history: 26 weeks PPROM on PO abx (to be completed tomorrow) No OB complaints GFM, +ve LOF, no VB no CTX Patient reports: loss of fluid, movement normal, no new complaints (PT still having random leaking. No VB. No ctx's. Good FM. Some diarrhea but pt is eating without difficulty.), no vaginal bleeding, no contractions Objective - Vital Signs Vital Signs: Vital Signs - 12hr 10/21/19 10/21/19 10/21/19 07:40 08:04 08:35 Temperature 98.3 F Pulse Rate 90 88 Respiratory 14 Rate Blood Pressure 84/45 88/50 10/21/19 10/21/19 09:57 10:04 Temperature 97.9 F Pulse Rate 90 Respiratory Rate Blood Pressure 93/54 - Exam Breasts: deferred Cardiovascular: Regular rate Lungs: Clear to auscultation FHR: category 1 (approproate for gestational age) Deep Tendon Reflex Grade: Normal +2 - Labs Labs: Abnormal Labs 10/14/19 10/14/19 10/15/19 23:00 Unknown 05:28 RBC 3.54 L Hgb Hct RDW 12.6 L [place] % (Auto) Seg Neutrophils % Seg Neutrophils # POC Glucose Magnesium 5.00 H Urine WBC (Auto) 11.0 H U Epithel Cells (Auto) 17.0 H 10/15/19 10/15/19 10/16/19 14:34 19:19 00:41 RBC Hgb Hct RDW [place] % (Auto) Seg Neutrophils % Seg Neutrophils # POC Glucose Magnesium 5.30 H 5.50 H 5.80 H Urine WBC (Auto) U Epithel Cells (Auto) 10/17/19 10/18/19 08:42 10:46 RBC 2.90 L Hgb 9.4 L Hct 27.4 L RDW 12.5 L [place] % (Auto) 7.7 H Seg Neutrophils % 73.4 H Seg Neutrophils # 7.9 H POC Glucose 63 L Magnesium Urine WBC (Auto) U Epithel Cells (Auto)
[2019-10-21] MEDS: NIFEdipine*For Tocolysis only* 10 MG CAPSULE PO PRN (14:28)
[2019-10-22] MEDS: LACTATED RINGERS 1,000 ML IV SCH (04:03)
[2019-10-22] MEDS: AMOXICILLIN 500 MG CAP PO SCH ×3 (06:01→22:44)
[2019-10-22] MEDS: valACYclovir 500 MG TAB PO SCH ×2 (11:03→22:44)
[2019-10-22] MEDS: FERROUS SULFATE 325 MG TAB PO SCH ×2 (11:03→22:44)
--- NOTE | 2019-10-22 17:02 | Progress Note ---
Assessment and Plan - Patient Problems (1) with 25 to 26 completed weeks gestation Current Visit: Yes Status: Acute (2) ROM (rupture of membranes), premature Current Visit: Yes Status: Acute Plan to address problem: Will continue current mgt. Subjective - Subjective Date of service: 10/22/19 Principal diagnosis: PPROM Interval history: Patient stated she had a gush of fluid come out of her vagina 10/14/2019 and she proceeded to come to L&D where she was comfirmed to have ruptured her membranes. . 1 term delivery. second was 34+wks. Both children are well. One miscarriage. AILYN 01/27/2020.She denied contractions, vaginal bleeding and fever. Fetus is active. 26+1 wks today: Reported continuing loss of fluid, movement normal, no new complaints no vaginal bleeding, no contractions Patient reports: loss of fluid, movement normal, no new complaints (PT still having random leaking. No VB. No ctx's. Good FM. Some diarrhea but pt is eating without difficulty.), no vaginal bleeding, no contractions Objective - Vital Signs Vital Signs: Vital Signs - 12hr 10/22/19 10/22/19 10/22/19 06:02 12:49 12:50 Temperature 98.2 F Pulse Rate 86 85 Blood Pressure 96/53 O2 Sat by Pulse 100 Oximetry 10/22/19 10/22/19 10/22/19 12:54 12:59 13:04 Temperature Pulse Rate 93 H 91 H 87 Blood Pressure O2 Sat by Pulse 100 100 100 Oximetry 10/22/19 10/22/19 10/22/19 13:09 13:14 13:19 Temperature Pulse Rate 88 86 83 Blood Pressure O2 Sat by Pulse 99 99 100 Oximetry 10/22/19 10/22/19 10/22/19 13:24 13:29 13:34 Temperature Pulse Rate 96 H 93 H 93 H Blood Pressure O2 Sat by Pulse 99 99 97 Oximetry 10/22/19 10/22/19 10/22/19 13:39 13:45 13:48 Temperature Pulse Rate 96 H 56 L 95 H Blood Pressure O2 Sat by Pulse 97 68 L 98 Oximetry 10/22/19 10/22/19 10/22/19 13:53 13:58 14:03 Temperature Pulse Rate 91 H 90 94 H Blood Pressure O2 Sat by Pulse 98 99 99 Oximetry 10/22/19 10/22/19 10/22/19 14:08 14:13 14:18 Temperature Pulse Rate 88 94 H 93 H Blood Pressure O2 Sat by Pulse 98 98 100 Oximetry 10/22/19 14:23 Temperature Pulse Rate 96 H Blood Pressure O2 Sat by Pulse 99 Oximetry - Exam Lungs: Normal air movement Abdomen: Present: normal appearance, soft, distention. Absent: tenderness, guarding FHR: auscultation normal, category 1 - Labs Labs: Abnormal Labs 10/14/19 10/14/19 10/15/19 23:00 Unknown 05:28 RBC 3.54 L Hgb Hct RDW 12.6 L [place] % (Auto) Seg Neutrophils % Seg Neutrophils # POC Glucose Magnesium 5.00 H Urine WBC (Auto) 11.0 H U Epithel Cells (Auto) 17.0 H 10/15/19 10/15/19 10/16/19 14:34 19:19 00:41 RBC Hgb Hct RDW [place] % (Auto) Seg Neutrophils % Seg Neutrophils # POC Glucose Magnesium 5.30 H 5.50 H 5.80 H Urine WBC (Auto) U Epithel Cells (Auto) 10/17/19 10/18/19 08:42 10:46 RBC 2.90 L Hgb 9.4 L Hct 27.4 L RDW 12.5 L [place] % (Auto) 7.7 H Seg Neutrophils % 73.4 H Seg Neutrophils # 7.9 H POC Glucose 63 L Magnesium Urine WBC (Auto) U Epithel Cells (Auto)
[2019-10-22] MEDS: NIFEdipine*For Tocolysis only* 10 MG CAPSULE PO PRN (22:46)
[2019-10-23] MEDS: AMOXICILLIN 500 MG CAP PO SCH ×3 (06:12→21:58)
[2019-10-23] MEDS: FERROUS SULFATE 325 MG TAB PO SCH ×2 (10:22→22:01)
[2019-10-23] MEDS: NIFEdipine*For Tocolysis only* 10 MG CAPSULE PO PRN ×3 (10:22→23:42)
[2019-10-23] MEDS: valACYclovir 500 MG TAB PO SCH ×2 (10:22→21:58)
--- NOTE | 2019-10-23 11:57 | Progress Note ---
Assessment and Plan - Patient Problems (1) premature rupture of membranes (PPROM) with unknown onset of labor Current Visit: Yes Status: Acute Plan to address problem: PT stable at 26.2 weeks and has completed ABx, steroids and MgSO4. Cont exp ectant care. BPP tomorrow and would get it q monday and . (2) History of herpes genitalis Current Visit: Yes Status: Acute (3) cardiac anomaly affecting , antepartum Current Visit: Yes Status: Acute Plan to address problem: Notes from [facility] regarding cardiac imaging d/w Janusz. They will review it. Subjective - Subjective Date of service: 10/23/19 Principal diagnosis: PPROM Patient reports: loss of fluid, movement normal, no new complaints (PT still having random leaking. Light pink d/c earlier today. No significant VB though. No ctx's. Good FM. ), no contractions Objective - Vital Signs Vital Signs: Vital Signs - 12hr 10/23/19 10/23/19 06:14 07:52 Temperature 98.4 F 98.4 F Pulse Rate 90 Respiratory 18 16 Rate Blood Pressure 96/55 - Exam Abdomen: Present: normal appearance. Absent: tenderness FHR: auscultation normal Uterine Contraction Pattern: Absent - Labs Labs: Abnormal Labs 10/14/19 10/14/19 10/15/19 23:00 Unknown 05:28 RBC 3.54 L Hgb Hct RDW 12.6 L [place] % (Auto) Seg Neutrophils % Seg Neutrophils # POC Glucose Magnesium 5.00 H Urine WBC (Auto) 11.0 H U Epithel Cells (Auto) 17.0 H 10/15/19 10/15/19 10/16/19 14:34 19:19 00:41 RBC Hgb Hct RDW [place] % (Auto) Seg Neutrophils % Seg Neutrophils # POC Glucose Magnesium 5.30 H 5.50 H 5.80 H Urine WBC (Auto) U Epithel Cells (Auto) 10/17/19 10/18/19 08:42 10:46 RBC 2.90 L Hgb 9.4 L Hct 27.4 L RDW 12.5 L [place] % (Auto) 7.7 H Seg Neutrophils % 73.4 H Seg Neutrophils # 7.9 H POC Glucose 63 L Magnesium Urine WBC (Auto) U Epithel Cells (Auto)
--- NOTE | 2019-10-23 18:16 | Consultation ---
Consult Note - Parent Education Additional Comment: I met with both parents this afternoon after reviewing arianna cardona records provided by OB. There is a concern for conotruncal defect and VSD on 23 week ultrasound, however mother was admitted prior to her appointment for a echocardiogram. I explained to both parents that since we are uncertain of the heart defects, baby will be stablized after delivery with urgent cardiology consultation. Without knowing the severity of heart disease it is challenging to predict prognosis though baby is at higher risk of poor outcome due to extreme prematurity combined with congenital heart disease which may unfortunately impact the team's ability to stabilize baby following delivery. Both parents stated that they understood the information provided and they did not have additional questions at this time. I encouraged them to reach out to NICU with any questions. Assessment and Plan - Plan Plan: Will attend delivery Please call NICU with questions Urgent cardiac consultation after stabilization following delivery
[2019-10-23] MEDS: LACTATED RINGERS 1,000 ML IV SCH ×2 (19:23→23:43)
[2019-10-24] MEDS: AMOXICILLIN 500 MG CAP PO SCH ×2 (05:26→14:06)
[2019-10-24 07:48] LABS: Hematocrit 27.4 % (30.3-42.9); Hemoglobin 9.2 gm/dl (10.1-14.3); Mean Corpuscular HGB Conc 34 % (30-34); Mean Corpuscular Volume 94 fl (79-97); Platelet Count 264 K/mm3 (140-440); Red Cell Distribution Width 12.7 % (13.2-15.2)
[2019-10-24] MEDS: valACYclovir 500 MG TAB PO SCH (09:53)
[2019-10-24] MEDS: FERROUS SULFATE 325 MG TAB PO SCH (09:53)
[2019-10-24] MEDS: LACTATED RINGERS 1,000 ML IV SCH ×2 (09:55→18:00)
--- NOTE | 2019-10-24 11:45 | Ultrasound Report ---
ULTRASOUND BIOPHYSICAL PROFILE INDICATION / CLINICAL INFORMATION: PPROM. COMPARISON: 10/21/2019 FINDINGS: BREATHING MOVEMENT = 2 GROSS BODY MOVEMENT = 2 TONE = 2 QUALITATIVE AMNIOTIC FLUID VOLUME = 0 TOTAL BIOPHYSICAL SCORE = 01/12 HEART RATE (beats per minute): 147 IMPRESSION: 1. biophysical profile = 01/12 Signer Name: Jung Reyes MD Signed: 10/24/2019 11:41 AM Workstation Name: [id number]
--- NOTE | 2019-10-24 16:00 | Progress Note ---
Assessment and Plan - Patient Problems (1) with 25 to 26 completed weeks gestation Current Visit: Yes Status: Acute (2) ROM (rupture of membranes), premature Current Visit: Yes Status: Acute Plan to address problem: Consult to MFM ordered for review of management and recommendations. Discussed the emergence of contractions with Dr Gilbert and the ongoing investigation to check for chorio. Raya BRADLEY was ordered to exam a freshly applied perineal pad after a couple of hrs with patient recumbent for evidence of purulence and report back to field education director MD. Subjective - Subjective Date of service: 10/24/19 (Telemedicine used today due to [place] pandemic. Raya RN was by the bedside for corroboration of info.) Principal diagnosis: PPROM Interval history: Patient stated she had a gush of fluid come out of her vagina 10/14/2019 and she proceeded to come to L&D where she was comfirmed to have ruptured her membranes. . 1 term delivery. second was 34+wks. Both children are well. One miscarriage. AILYN 01/27/2020.She denied contractions, vaginal bleeding and fever. Fetus is active. 26+3 wks today: Reported continuing loss of fluid, movement normal, no vaginal bleeding. Reported contractions today. Patient reports: new complaints, loss of fluid, movement normal, contractions (Patient was ordered to be monitoored continously now.) Objective - Vital Signs Vital Signs: Vital Signs - 12hr 10/24/19 10/24/19 10/24/19 04:08 04:44 05:30 Temperature 98.2 F Pulse Rate 87 80 Respiratory Rate Blood Pressure 94/55 87/52 O2 Sat by Pulse Oximetry 10/24/19 10/24/19 10/24/19 06:27 07:10 07:27 Temperature 98.3 F Pulse Rate 76 76 Respiratory 16 Rate Blood Pressure 94/52 97/53 O2 Sat by Pulse 98 Oximetry 10/24/19 10/24/19 10/24/19 08:27 09:21 09:27 Temperature Pulse Rate 84 85 81 Respiratory Rate Blood Pressure 89/54 96/51 98/51 O2 Sat by Pulse Oximetry 10/24/19 10/24/19 10/24/19 10:27 12:00 12:27 Temperature 98.1 F Pulse Rate 71 88 Respiratory 16 Rate Blood Pressure 91/55 107/53 O2 Sat by Pulse 98 Oximetry 10/24/19 10/24/19 10/24/19 13:27 14:09 14:27 Temperature 98.0 F Pulse Rate 96 H 78 Respiratory 15 Rate Blood Pressure 93/54 88/55 O2 Sat by Pulse 98 Oximetry 10/24/19 15:27 Temperature Pulse Rate 93 H Respiratory Rate Blood Pressure 92/51 O2 Sat by Pulse Oximetry - Exam Lungs: Normal air movement Abdomen: Present: normal appearance, soft. Absent: tenderness, guarding Uterus: Present: normal. Absent: tenderness FHR: auscultation normal Uterine Contraction Pattern: Irregular Extremities: normal - Labs Labs: Abnormal Labs 10/14/19 10/14/19 10/15/19 23:00 Unknown 05:28 WBC RBC 3.54 L Hgb Hct RDW 12.6 L [place] % (Auto) Seg Neutrophils % Seg Neutrophils # POC Glucose Magnesium 5.00 H Urine WBC (Auto) 11.0 H U Epithel Cells (Auto) 17.0 H 10/15/19 10/15/19 10/16/19 14:34 19:19 00:41 WBC RBC Hgb Hct RDW [place] % (Auto) Seg Neutrophils % Seg Neutrophils # POC Glucose Magnesium 5.30 H 5.50 H 5.80 H Urine WBC (Auto) U Epithel Cells (Auto) 10/17/19 10/18/19 10/24/19 08:42 10:46 07:35 WBC 12.5 H RBC 2.90 L 2.90 L Hgb 9.4 L 9.2 L Hct 27.4 L 27.4 L RDW 12.5 L 12.7 L [place] % (Auto) 7.7 H Seg Neutrophils % 73.4 H Seg Neutrophils # 7.9 H POC Glucose 63 L Magnesium Urine WBC (Auto) U Epithel Cells (Auto) Laboratory Results - last 24 hr 10/24/19 10/24/19 07:35 07:35 WBC 12.5 H RBC 2.90 L Hgb 9.2 L Hct 27.4 L MCV 94 MCH 32 MCHC 34 RDW 12.7 L Plt Count 264 Blood Type B POSITIVE Antibody Screen Negative
[2019-10-24 17:02] LABS: Basophils % (Auto) 0.1 % (0.0-1.8); Eosinophils % (Auto) 0.1 % (0.0-4.3); Hematocrit 28.8 % (30.3-42.9); Hemoglobin 9.7 gm/dl (10.1-14.3); Lymphocytes # (Auto) 1.5 K/mm3 (1.2-5.4); Lymphocytes % (Auto) 11.3 % (13.4-35.0); Mean Corpuscular HGB Conc 34 % (30-34); Mean Corpuscular Volume 94 fl (79-97); Monocytes # (Auto) 0.8 K/mm3 (0.0-0.8); Monocytes % (Auto) 6.3 % (0.0-7.3); Platelet Count 278 K/mm3 (140-440); Red Blood Count 3.06 M/mm3 (3.65-5.03); Red Cell Distribution Width 12.7 % (13.2-15.2)
[2019-10-25] MEDS: FERROUS SULFATE 325 MG TAB PO SCH ×3 (01:11→22:30)
[2019-10-25] MEDS: valACYclovir 500 MG TAB PO SCH ×3 (01:12→22:31)
[2019-10-25] MEDS: AMOXICILLIN 500 MG CAP PO SCH ×4 (01:12→22:31)
[2019-10-25] MEDS: LACTATED RINGERS 1,000 ML IV SCH ×2 (01:13→09:08)
--- NOTE | 2019-10-25 08:42 | Consultation ---
History of Present Illness Consult date: 10/25/19 Reason for consult: other (PPROM, fetus with possible congenital cardiac defect) History of present illness: Ms. Pulmmer is a 23 y.o at 26+4 weeks gestation who has been hospitalized at [facility] for PPROM since 10/14/2019. Of note, the patient had been followed by Maternal- Medicine as an outpatient due to a history of delivery at 32 weeks (on Nancy as outpatient this ) and a family history of Tetralogy of Fallot. Furthermore, at a [facility] consultation on 10/04/2019, the patient did have a growth ultrasound that demonstrated the fetus' LVOT to be connected to the pulmonary tree and there to be a membranous VSD. Therefore, there was concern for a cono-truncal defect. The patient was not able to obtain a echo as t he patient experienced PPROM and is now hospitalized. On review of the hospital course thus far, the patient has completed a betamethasone course, received magnesium for neuroprotection and has completed latency antibiotics. Currently, she denies any CTX/VB. She reports continuous leakage of fluid that sometimes is occasionally slightly yellow tinged but no purulence per vagina. +FM. Past History Past Medical History: no pertinent history - Obstetrical History : 4 Medications and Allergies Allergies Allergy/AdvReac Type Severity Reaction Status Date / Time ibuprofen [From Motrin] AdvReac Severe Shortness Verified 04/08/18 09:33 of Breath butorphanol tartrate AdvReac Itching Verified 05/04/17 02:26 [From Stadol] Home Medications Medication Instructions Recorded Confirmed Last Taken Type Ferrous Sulfate [Feosol] 325 mg PO BID 04/07/18 10/14/19 10/14/19 History 08 Vitamin 1 tab PO DAILY 10/12/19 10/14/19 10/14/19 History 08 Active Meds: Active Medications Acetaminophen (Tylenol) 650 mg PO Q6H PRN PRN Reason: Pain, Mild (1-3) Last Admin: 10/20/19 21:31 Dose: 650 mg Documented by: Amoxicillin (Trimox) 500 mg PO Q8HR JAMARCUS Last Admin: 10/25/19 07:04 Dose: 500 mg Documented by: Docusate Sodium (Colace) 100 mg PO BID PRN PRN Reason: Bowel Movement Last Admin: 10/20/19 22:13 Dose: 100 mg Documented by: Ephedrine Sulfate (Ephedrine Sulfate) 10 mg IV Q2M PRN PRN Reason: Hypotension Ferrous Sulfate (Feosol) 325 mg PO BID [facility] Last Admin: 10/25/19 01:11 Dose: 325 mg Documented by: Oxytocin/Sodium Chloride (Pitocin/Ns 20 Unit/1000ml Drip) 20 units in 1,000 mls @ 125 mls/hr IV DIRECT JAMARCUS Lactated Ringer's (Lactated Ringers) 1,000 mls @ 125 mls/hr IV DIRECT [facility] Last Admin: 10/25/19 01:13 Dose: 125 mls/hr Documented by: Magnesium Sulfate (Magnesium Sulfate 40gm/1000ml) 40 gm in 1,000 mls @ 50 mls/hr IV DIRECT [facility] Last Admin: 10/15/19 20:31 Dose: 2 gm/hr, 50 mls/hr Documented by: Mineral Oil (Mineral Oil) 30 ml PO QHS PRN PRN Reason: Constipation Nifedipine (Procardia*For Tocolysis Only*) 20 mg PO Q6H PRN PRN Reason: contractions Last Admin: 10/23/19 23:42 Dose: 20 mg Documented by: Ondansetron HCl (Zofran) 4 mg IV Q8H PRN PRN Reason: Nausea And Vomiting Last Admin: 10/19/19 10:24 Dose: 4 mg Documented by: Terbutaline Sulfate (Brethine) 0.25 mg SUB-Q ONCE PRN PRN Reason: Hyperstimulation/Hypertonicity Terbutaline Sulfate (Brethine) 0.25 mg IVP ONCE PRN PRN Reason: Hyperstimulation/Hypertonicity Valacyclovir HCl (Valtrex) 500 mg PO BID [facility] Last Admin: 10/25/19 01:12 Dose: 500 mg Documented by: Review of Systems All systems: negative (Reports continued leakage of clear fluid per vagina.) - Vital Signs Vital signs: Vital Signs Temp Pulse Resp BP 98.3 F 91 H 16 95/54 10/14/19 18:56 10/14/19 18:56 10/14/19 18:56 10/14/19 18:56 Temp Pulse Resp BP Pulse Ox 98.3 F 91 H 16 86/51 99 10/25/19 05:59 10/25/19 06:04 10/25/19 05:59 10/25/19 06:04 10/25/19 06:01 - Physical Exam Breasts: Positive: deferred Abdomen: Positive: normal appearance, soft, other (No ruq/epigastric tenderness. No fundal tenderness.) Extremities: Positive: normal - Obstetrical FHR: category 1 FHR comments: 130, mod adair, +10x10 accels, -D Uterine Contraction Pattern: Absent Results Result Diagrams: 10/24/19 16:24 Abnormal lab results 10/24/19 Range/Units 16:24 WBC 13.0 H (4.5-11.0) K/mm3 RBC 3.06 L (3.65-5.03) M/mm3 Hgb 9.7 L (10.1-14.3) gm/dl Hct 28.8 L (30.3-42.9) % RDW 12.7 L (13.2-15.2) % Lymph % (Auto) 11.3 L (13.4-35.0) % Seg Neutrophils % 82.2 H (40.0-70.0) % Seg Neutrophils # 10.7 H (1.8-7.7) K/mm3 All other labs normal. Ultrasound: pending, report reviewed, image reviewed, other Assessment and Plan IMPRESSIONS: IUP at 26+4 wks GA prelabor rupture of membranes History of at 32 weeks Concern for fetus with possible conotruncal heart defect Family history of Tetralogy of Fallot s/p latency antibiotics s/p BMZ 10/13-10 s/p magnesium for neuroprotection s/p Neonatology consultation RECOMMENDATIONS: prelabor rupture of membranes (PPROM) I reviewed the pathophysiology of PPROM with the patient today and discussed that because of PPROM, the is now exposed to the outside vaginal theo, which increases the risk for infection, inflammation, intra-amniotic infection. Patients with PPROM also are at risk for cord prolapse, placental abruption and IUFD. Therefore, inpatient management until delivery is recommended. Tocolysis in the setting of PPROM is CONTRAINDICATED, as this can mask abruption and intra-amniotic infection Obtain GBS PCR Daily NSTs BPPs weekly Please obtain a growth ultrasound now and every 3-4 weeks The patient should be delivered at 34 weeks, if the patient demonstrates reassuring maternal- status. Reasons for earlier delivery would include the following: signs of intra- amniotic infection (abnormal discharge, maternal fever, maternal/ tachycardia refractory to intervention, sepsis, placental abruption, cord prolapse, non-reassuring status). The patient was instructed on kick counts and signs of infection today. When the patient is to be induced, please initiate GBS prophylaxis, if indicated PPROM is not a contraindication to vaginal delivery. delivery should be reserved for the routine obstetrical indications Reviewed with the patient that greater than 50% of patients will go on to de liver within the next week. Discussed that bedrest is CONTRAINDICATED, as this can increase the risk of VTE but also maternal de-conditioning. Possible cono-truncal defect The exact diagnosis cannot be made at this time due to the incomplete heart views on the last scan in the [facility] office. Therefore, to err on the conserative side, I recommend assuming that this patient's fetus does have a cardiac defect. Therefore, I recommend the following: -Given the patient's family history of cardiac defects, it is not unreasonable to obtain a Maternal echo to verify normal cardiac anatomy and function -Obtain consultation with Pediatric Cardiology, if possible -Notify neonatology of the presence of this patient in house in advance of delivery. The fetus may require a transfer to a higher level of care -At delivery, obtain cord blood for chromosomal microarray analysis INCLUDING 22q11.2 (DiGeorge) testing. -If the patient is still at 34 weeks, given the presence of the heart defect, a discussion can be had with the patient regarding extending expectant management to 37 weeks of in order to maximize weight for any potential cardiac surgery that the may require after delivery. However, this discussion must balance maximizing benefit with the risks of expectant management including maternal hemorrhage and sepsis as noted in the PROMPTT Trial (Luis et al, Immediate delivery compared with expectant management after pre-labour rupture of the membranes close to term (PPROMT trial): a randomised controlled trial. Lancet. 2016 Sep 05;387(62140):513-28. doi: 10.1016/S6133-0809(94)69811-2. Epub 2014Jun 16.) History of As the patient is now ruptured, discontinue Nancy These recommendations were discussed with Dr. Lopez at 818AM.
--- NOTE | 2019-10-25 09:06 | Progress Note ---
Assessment and Plan - Patient Problems (1) with 25 to 26 completed weeks gestation Current Visit: Yes Status: Acute (2) ROM (rupture of membranes), premature Current Visit: Yes Status: Acute Plan to address problem: patient is stable. Dr Barrientos called with his assessment;his notes are awaited. Subjective - Subjective Date of service: 10/25/19 Principal diagnosis: PPROM Interval history: Patient stated she had a gush of fluid come out of her vagina 10/14/2019 and she proceeded to come to L&D where she was comfirmed to have ruptured her membranes. . 1 term delivery. second was 34+wks. Both children are well. One miscarriage. AILYN 01/27/2020.She denied contractions, vaginal bleeding and fever. Fetus is active. 26+4 wks today: Reported continuing loss of fluid, movement normal, no vaginal bleeding.No contractions reported. Was seen this morning by MFM at [facility]. Patient reports: new complaints, loss of fluid, movement normal, contractions (Patient was ordered to be monitoored continously now.) Objective - Vital Signs Vital Signs: Vital Signs - 12hr 10/24/19 10/24/19 10/24/19 21:05 21:10 21:15 Temperature Pulse Rate 96 H 89 87 Respiratory Rate Blood Pressure Blood Pressure [Left] O2 Sat by Pulse 98 100 100 Oximetry 10/24/19 10/24/19 10/24/19 21:20 21:25 21:27 Temperature Pulse Rate 91 H 86 95 H Respiratory Rate Blood Pressure 107/62 Blood Pressure [Left] O2 Sat by Pulse 100 99 Oximetry 10/24/19 10/24/19 10/24/19 21:30 21:35 21:40 Temperature Pulse Rate 88 90 89 Respiratory Rate Blood Pressure Blood Pressure [Left] O2 Sat by Pulse 100 99 100 Oximetry 10/24/19 10/24/19 10/24/19 21:45 22:06 22:10 Temperature 98.4 F Pulse Rate 99 H 66 95 H Respiratory 18 Rate Blood Pressure 113/59 Blood Pressure 113/59 [Left] O2 Sat by Pulse 100 100 100 Oximetry 10/24/19 10/24/19 10/24/19 22:15 22:20 22:25 Temperature Pulse Rate 83 93 H 99 H Respiratory Rate Blood Pressure Blood Pressure [Left] O2 Sat by Pulse 100 100 100 Oximetry 10/24/19 10/24/19 10/24/19 22:28 22:30 22:35 Temperature Pulse Rate 93 H 96 H 104 H Respiratory Rate Blood Pressure 112/77 Blood Pressure [Left] O2 Sat by Pulse 100 99 Oximetry 10/24/19 10/24/19 10/24/19 22:40 22:45 22:50 Temperature Pulse Rate 89 78 82 Respiratory Rate Blood Pressure Blood Pressure [Left] O2 Sat by Pulse 100 100 100 Oximetry 10/24/19 10/24/19 10/24/19 22:55 23:00 23:05 Temperature Pulse Rate 86 93 H 82 Respiratory Rate Blood Pressure Blood Pressure [Left] O2 Sat by Pulse 100 100 99 Oximetry 10/24/19 10/24/19 10/24/19 23:10 23:15 23:20 Temperature Pulse Rate 85 85 91 H Respiratory Rate Blood Pressure Blood Pressure [Left] O2 Sat by Pulse 99 99 100 Oximetry 10/24/19 10/24/19 10/24/19 23:25 23:27 23:30 Temperature Pulse Rate 91 H 90 87 Respiratory Rate Blood Pressure 104/55 Blood Pressure [Left] O2 Sat by Pulse 99 98 Oximetry 10/24/19 10/24/19 10/24/19 23:35 23:40 23:45 Temperature Pulse Rate 89 91 H 86 Respiratory Rate Blood Pressure Blood Pressure [Left] O2 Sat by Pulse 99 99 99 Oximetry 10/24/19 10/24/19 10/25/19 23:50 23:58 00:03 Temperature Pulse Rate 93 H 82 97 H Respiratory Rate Blood Pressure Blood Pressure [Left] O2 Sat by Pulse 98 99 99 Oximetry 10/25/19 10/25/19 10/25/19 00:08 00:13 00:18 Temperature Pulse Rate 94 H 90 91 H Respiratory Rate Blood Pressure Blood Pressure [Left] O2 Sat by Pulse 98 97 97 Oximetry 10/25/19 10/25/19 10/25/19 00:23 00:27 00:28 Temperature Pulse Rate 84 84 85 Respiratory Rate Blood Pressure 100/55 Blood Pressure [Left] O2 Sat by Pulse 98 99 Oximetry 10/25/19 10/25/19 10/25/19 00:33 00:39 00:43 Temperature Pulse Rate 95 H 84 88 Respiratory Rate Blood Pressure Blood Pressure [Left] O2 Sat by Pulse 98 99 99 Oximetry 10/25/19 10/25/19 10/25/19 00:48 00:53 00:58 Temperature Pulse Rate 80 85 81 Respiratory Rate Blood Pressure Blood Pressure [Left] O2 Sat by Pulse 98 98 99 Oximetry 10/25/19 10/25/19 10/25/19 01:04 01:08 01:14 Temperature Pulse Rate 91 H 89 84 Respiratory Rate Blood Pressure Blood Pressure [Left] O2 Sat by Pulse 99 99 98 Oximetry 10/25/19 10/25/19 10/25/19 01:16 01:17 01:19 Temperature 98.0 F Pulse Rate 89 76 84 Respiratory 18 Rate Blood Pressure 101/57 Blood Pressure 101/57 [Left] O2 Sat by Pulse 100 100 Oximetry 10/25/19 10/25/19 10/25/19 02:27 03:27 04:05 Temperature 98.4 F Pulse Rate 82 73 86 Respiratory 18 Rate Blood Pressure 100/56 88/52 Blood Pressure 101/51 [Left] O2 Sat by Pulse 98 Oximetry 10/25/19 10/25/19 10/25/19 04:27 04:43 05:59 Temperature 98.3 F Pulse Rate 86 76 77 Respiratory 16 Rate Blood Pressure 101/51 101/51 Blood Pressure 86/51 [Left] O2 Sat by Pulse 98 100 Oximetry 10/25/19 10/25/19 10/25/19 06:01 06:02 06:03 Temperature Pulse Rate 77 77 76 Respiratory Rate Blood Pressure 84/47 78/41 Blood Pressure [Left] O2 Sat by Pulse 99 Oximetry 10/25/19 06:04 Temperature Pulse Rate 91 H Respiratory Rate Blood Pressure 86/51 Blood Pressure [Left] O2 Sat by Pulse Oximetry - Exam Lungs: Normal air movement Uterus: Present: normal, fundal height above umbilicus. Absent: tenderness FHR: category 1 Extremities: normal - Labs Labs: Abnormal Labs 10/14/19 10/14/19 10/15/19 23:00 Unknown 05:28 WBC RBC 3.54 L Hgb Hct RDW 12.6 L Lymph % (Auto) [place] % (Auto) Seg Neutrophils % Seg Neutrophils # POC Glucose Magnesium 5.00 H Urine WBC (Auto) 11.0 H U Epithel Cells (Auto) 17.0 H 10/15/19 10/15/19 10/16/19 14:34 19:19 00:41 WBC RBC Hgb Hct RDW Lymph % (Auto) [place] % (Auto) Seg Neutrophils % Seg Neutrophils # POC Glucose Magnesium 5.30 H 5.50 H 5.80 H Urine WBC (Auto) U Epithel Cells (Auto) 10/17/19 10/18/19 10/24/19 08:42 10:46 07:35 WBC 12.5 H RBC 2.90 L 2.90 L Hgb 9.4 L 9.2 L Hct 27.4 L 27.4 L RDW 12.5 L 12.7 L Lymph % (Auto) [place] % (Auto) 7.7 H Seg Neutrophils % 73.4 H Seg Neutrophils # 7.9 H POC Glucose 63 L Magnesium Urine WBC (Auto) U Epithel Cells (Auto) 10/24/19 16:24 WBC 13.0 H RBC 3.06 L Hgb 9.7 L Hct 28.8 L RDW 12.7 L Lymph % (Auto) 11.3 L [place] % (Auto) Seg Neutrophils % 82.2 H Seg Neutrophils # 10.7 H POC Glucose Magnesium Urine WBC (Auto) U Epithel Cells (Auto) Laboratory Results - last 24 hr 10/24/19 16:24 WBC 13.0 H RBC 3.06 L Hgb 9.7 L Hct 28.8 L MCV 94 MCH 32 MCHC 34 RDW 12.7 L Plt Count 278 Lymph % (Auto) 11.3 L [place] % (Auto) 6.3 Eos % (Auto) 0.1 Baso % (Auto) 0.1 Lymph # 1.5 [place] # 0.8 Eos # 0.0 Baso # 0.0 Seg Neutrophils % 82.2 H Seg Neutrophils # 10.7 H
[2019-10-26] MEDS: AMOXICILLIN 500 MG CAP PO SCH ×3 (06:25→22:07)
[2019-10-26] MEDS: FERROUS SULFATE 325 MG TAB PO SCH ×2 (09:59→22:07)
[2019-10-26] MEDS: valACYclovir 500 MG TAB PO SCH ×2 (09:59→22:08)
[2019-10-26] MEDS: NIFEdipine*For Tocolysis only* 10 MG CAPSULE PO PRN ×2 (10:44→17:02)
--- NOTE | 2019-10-26 11:38 | Progress Note ---
Assessment and Plan PPROM expectant management maternal/ well being reassuring overall LAMAR Devlin MD Subjective - Subjective Date of service: 10/26/19 Principal diagnosis: PPROM Interval history: 26 weeks PPROM on PO abx (to be completed tomorrow) No OB complaints GFM, +ve LOF, no VB no CTX Patient reports: new complaints, loss of fluid, movement normal, contractions (Patient was ordered to be monitoored continously now.) Objective - Vital Signs Vital Signs: Vital Signs - 12hr 10/26/19 10/26/19 10/26/19 00:55 00:58 00:59 Temperature Pulse Rate 92 H 87 84 Respiratory 18 Rate Blood Pressure 89/54 84/46 Blood Pressure [Left] Blood Pressure 89/54 [Right] O2 Sat by Pulse 100 29 L 100 Oximetry 10/26/19 10/26/19 10/26/19 04:15 04:22 04:23 Temperature 98.5 F Pulse Rate 100 H 94 H 99 H Respiratory 18 Rate Blood Pressure 90/50 Blood Pressure 100/50 [Left] Blood Pressure [Right] O2 Sat by Pulse 98 98 Oximetry 10/26/19 10/26/19 10/26/19 06:20 10:00 10:04 Temperature 98.6 F 98.1 F Pulse Rate 108 H 87 Respiratory 18 Rate Blood Pressure 100/58 Blood Pressure [Left] Blood Pressure [Right] O2 Sat by Pulse 100 Oximetry - Exam Breasts: deferred Cardiovascular: Regular rate Lungs: Clear to auscultation Abdomen: Present: normal appearance, soft FHR: category 1 Cervical Dilatation: 1 Cervical Effacement Percentage: 50 station: -3 Uterine Contraction Pattern: Irregular - Labs Labs: Abnormal Labs 10/14/19 10/14/19 10/15/19 23:00 Unknown 05:28 WBC RBC 3.54 L Hgb Hct RDW 12.6 L Lymph % (Auto) [place] % (Auto) Seg Neutrophils % Seg Neutrophils # POC Glucose Magnesium 5.00 H Urine WBC (Auto) 11.0 H U Epithel Cells (Auto) 17.0 H 10/15/19 10/15/19 10/16/19 14:34 19:19 00:41 WBC RBC Hgb Hct RDW Lymph % (Auto) [place] % (Auto) Seg Neutrophils % Seg Neutrophils # POC Glucose Magnesium 5.30 H 5.50 H 5.80 H Urine WBC (Auto) U Epithel Cells (Auto) 10/17/19 10/18/19 10/24/19 08:42 10:46 07:35 WBC 12.5 H RBC 2.90 L 2.90 L Hgb 9.4 L 9.2 L Hct 27.4 L 27.4 L RDW 12.5 L 12.7 L Lymph % (Auto) [place] % (Auto) 7.7 H Seg Neutrophils % 73.4 H Seg Neutrophils # 7.9 H POC Glucose 63 L Magnesium Urine WBC (Auto) U Epithel Cells (Auto) 10/24/19 16:24 WBC 13.0 H RBC 3.06 L Hgb 9.7 L Hct 28.8 L RDW 12.7 L Lymph % (Auto) 11.3 L [place] % (Auto) Seg Neutrophils % 82.2 H Seg Neutrophils # 10.7 H POC Glucose Magnesium Urine WBC (Auto) U Epithel Cells (Auto)
[2019-10-26] MEDS ORDERED: TERBUTALINE 1 MG/1 ML INJ SUB-Q ONE (20:48)
[2019-10-26] MEDS ORDERED: diphenhydrAMINE 50 MG/ML VIAL ONE (21:03)
[2019-10-26] MEDS ORDERED: diphenhydrAMINE 50 MG/ML VIAL IV ONE (21:06)
[2019-10-26] MEDS: LACTATED RINGERS 1,000 ML IV SCH ×2 (21:19→22:09)
[2019-10-26] MEDS ORDERED: LACTATED RINGERS 1,000 ML IV SCH (22:00)
[2019-10-26] MEDS: NIFEdipine*For Tocolysis only* 10 MG CAPSULE PO SCH (22:30)
[2019-10-27] MEDS ORDERED: fentaNYL 100 MCG/2 ML INJ IV ONE ×2 (04:18→08:30)
[2019-10-27] MEDS: AMOXICILLIN 500 MG CAP PO SCH (06:18)
[2019-10-27] MEDS: LACTATED RINGERS 1,000 ML IV SCH (06:22)
[2019-10-27] MEDS: NIFEdipine*For Tocolysis only* 10 MG CAPSULE PO SCH ×2 (06:34)
[2019-10-27] MEDS ORDERED: AMPICILLIN/NS 2 GM/100 ML 2 GM/100 ML BAG IV NR (08:24)
--- NOTE | 2019-10-27 09:26 | Progress Note ---
Subjective - Subjective Date of service: 10/27/19 Principal diagnosis: PPROM Interval history: 26+1/7 weeks refusing procardia +ve contraction Q2-3 minutes Cervix 4cm/80%/-2 PPROM IV Abx started IV pain meds expectant management FHT appropriate for gestational age Zafar Gilbert MD Patient reports: new complaints, loss of fluid, movement normal, contractions (Patient was ordered to be monitoored continously now.) Objective - Vital Signs Vital Signs: Vital Signs - 12hr 10/26/19 10/26/19 10/27/19 22:00 22:11 00:00 Temperature 98.6 F 99.2 F Pulse Rate 118 H Blood Pressure 108/57 10/27/19 10/27/19 10/27/19 00:01 01:57 02:00 Temperature 98.7 F Pulse Rate 107 H 95 H Blood Pressure 89/54 89/55 10/27/19 10/27/19 10/27/19 03:59 04:00 06:00 Temperature 98.4 F 98.7 F Pulse Rate 90 Blood Pressure 100/53 10/27/19 08:10 Temperature Pulse Rate 92 H Blood Pressure 119/56 - Labs Labs: Abnormal Labs 10/14/19 10/14/19 10/15/19 23:00 Unknown 05:28 WBC RBC 3.54 L Hgb Hct RDW 12.6 L Lymph % (Auto) [place] % (Auto) Seg Neutrophils % Seg Neutrophils # POC Glucose Magnesium 5.00 H Urine WBC (Auto) 11.0 H U Epithel Cells (Auto) 17.0 H 10/15/19 10/15/19 10/16/19 14:34 19:19 00:41 WBC RBC Hgb Hct RDW Lymph % (Auto) [place] % (Auto) Seg Neutrophils % Seg Neutrophils # POC Glucose Magnesium 5.30 H 5.50 H 5.80 H Urine WBC (Auto) U Epithel Cells (Auto) 10/17/19 10/18/19 10/24/19 08:42 10:46 07:35 WBC 12.5 H RBC 2.90 L 2.90 L Hgb 9.4 L 9.2 L Hct 27.4 L 27.4 L RDW 12.5 L 12.7 L Lymph % (Auto) [place] % (Auto) 7.7 H Seg Neutrophils % 73.4 H Seg Neutrophils # 7.9 H POC Glucose 63 L Magnesium Urine WBC (Auto) U Epithel Cells (Auto) 10/24/19 16:24 WBC 13.0 H RBC 3.06 L Hgb 9.7 L Hct 28.8 L RDW 12.7 L Lymph % (Auto) 11.3 L [place] % (Auto) Seg Neutrophils % 82.2 H Seg Neutrophils # 10.7 H POC Glucose Magnesium Urine WBC (Auto) U Epithel Cells (Auto)
[2019-10-27] MEDS: OXYTOCIN 20 UNIT/1000ML DRIP 20 UNITS/1,000 ML BAG IV SCH ×2 (10:32→12:02)
[2019-10-27] MEDS ORDERED: WITCH HAZEL/ GLYCERIN PAD TP PRN (10:43)
[2019-10-27] MEDS ORDERED: PROMETHAZINE 25 MG RECT SUPP PR PRN (10:43)
[2019-10-27] MEDS ORDERED: LANOLIN/ZINC/DIMETHICONE (LANSINOH) 7 GM TP PRN (10:43)
[2019-10-27] MEDS ORDERED: diphenhydrAMINE 25 MG CAP PO PRN (10:43)
[2019-10-27] MEDS ORDERED: MAGNESIUM HYDROXIDE (MOM) ORAL LIQD UDC PO PRN (10:43)
[2019-10-27] MEDS ORDERED: ONDANSETRON 4 MG/2 ML INJ IV PRN (10:43)
[2019-10-27] MEDS ORDERED: ACETAMINOPHEN 325 MG TAB PO PRN (10:43)
[2019-10-27] MEDS ORDERED: PROMETHAZINE 25 MG TAB PO PRN (10:43)
[2019-10-27] MEDS: FERROUS SULFATE 325 MG TAB PO SCH (10:46)
[2019-10-27] MEDS: valACYclovir 500 MG TAB PO SCH (10:59)
[2019-10-27] MEDS ORDERED: IBUPROFEN 600 MG TAB PO SCH (11:00)
[2019-10-27] MEDS: HYDROcodone/ACETAMINOPHEN 5-325 MG TAB PO PRN (11:20)
--- NOTE | 2019-10-27 11:26 | Procedure Note ---
OB Delivery Note - Delivery Date of Delivery: 10/27/19 Surgeon: MONROE STOUT Estimated blood loss: 300cc - Vaginal Delivery position: OA Intrapartum events: labor-<37 weeks, PROM->1hr before delivery Delivery induction: none Delivery monitor: none Route of delivery: Delivery placenta: spontaneous Delivery cord: 3 umbilical vessels Episiotomy: none Delivery laceration: none Anesthesia: none Delivery comments: Patient feeling rectal pressure. Cervix noted to be complete. Patient pushed to deliver a viable female over an intact perineum with weight and . +ve body cord. +ve spontaneous cry at delivery. NICU team in room for delivery. Delayed cord clamping!45seconds. Cord clamped and cut and baby handed to waiting NICU staff. An intact placenta with three vessel cord delivered spontaneously. Inspection of the perineum, vaginal and cervix revealed no lacerations. Mom to in stable condition. EBL 300ml. All sponge, needle and instrument counts correctx2. Baby stable to NICU. No complications. [place] KIM
[2019-10-27] MEDS: ONDANSETRON 4 MG/2 ML INJ IV PRN (14:07)
[2019-10-28 00:28] LABS: Hematocrit 31.2 % (30.3-42.9); Hemoglobin 10.7 gm/dl (10.1-14.3)
[2019-10-28] MEDS ORDERED: TETANUS,DIPH,PERTUSS(ACELL) VACCINE 0.5 ML SYRINGE IM ONE (06:00)
[2019-10-28] MEDS: FERROUS SULFATE 325 MG TAB PO SCH ×2 (09:15→22:29)
--- NOTE | 2019-10-28 11:17 | Event Note ---
Date: 10/28/19 Been to patient's room twice for evaluation but not present.
[2019-10-28] MEDS: valACYclovir 500 MG TAB PO SCH ×2 (12:20→22:29)
[2019-10-28] MEDS: HYDROcodone/ACETAMINOPHEN 5-325 MG TAB PO PRN (17:51)
--- NOTE | 2019-10-28 19:32 | Progress Note ---
Assessment and Plan - Patient Problems (1) Status post normal vaginal delivery Current Visit: Yes Status: Acute Plan to address problem: PPD 1 - stable Continue routine orders Anticipate discharge in 24 hours (2) delivery Current Visit: No Status: Acute Subjective - Subjective Date of service: 10/28/19 Principal diagnosis: PPD #1; S/P Patient reports: appetite normal, voiding normally, pain well controlled, ambulating normally, no dizzy ambulation [place]: in NICU Objective - Vital Signs Latest vital signs: Vital Signs Temp Pulse Resp BP Pulse Ox 10/28/19 17:00 98.7 F 63 18 113/58 100 10/28/19 13:05 97.9 F 77 18 108/56 100 10/28/19 09:22 97.4 F L 71 18 101/62 99 10/28/19 01:39 98.4 F 70 20 99/62 100 10/27/19 20:32 98.1 F 80 18 100/56 98 Intake and Output 10/28/19 10/28/19 10/28/19 07:59 15:59 23:59 Other: # Voids Indwelling Catheter 1 Void 1 - Exam Abdomen: Present: normal appearance, soft Vulva: both: normal Uterus: Present: normal, firm, fundal height below umbilicus Extremities: Present: normal Comments: scant lochia
[2019-10-29] MEDS: NIFEdipine*For Tocolysis only* 10 MG CAPSULE PO SCH (02:04)
[2019-10-29] MEDS ORDERED: TETANUS,DIPH,PERTUSS(ACELL) VACCINE 0.5 ML SYRINGE IM ONE (06:00)
[2019-10-29] MEDS: FERROUS SULFATE 325 MG TAB PO SCH (09:35)
[2019-10-29] MEDS: valACYclovir 500 MG TAB PO SCH (09:35)
--- NOTE | 2019-10-29 15:10 | Discharge Summary ---
Providers - Providers Date of Admission: 10/15/19 17:38 Date of discharge: 10/29/19 Attending physician: LUIS DANIEL GARCIA 10/14/19 20:31 Consult to Physician [CONS] Stat Comment: Consulting Provider: LUIS DANIEL GARCIA Physician Instructions: Consult NICU for PPROM Reason For Exam: PPROM at 25 weeks 10/15/19 15:38 Consult to Physician [CONS] Routine Comment: Consulting Provider: LIDIA LUGO Physician Instructions: Reason For Exam: Premature ROM 10/18/19 15:12 Consult to Physician [CONS] Urgent Comment: RECOMMENDATIONS MATERNAL/ TRANSPORT Consulting Provider: MONET YOUNG Physician Instructions: PLEASE DISCUSS CARE Reason For Exam: 25 WEEK GESTATION 10/24/19 17:41 Consult to Physician [CONS] Routine Comment: Consulting Provider: CARLOS GODOY Physician Instructions: Kindlyreview management and make recommendations Reason For Exam: 26 +wks PPROM Primary care physician: LUIS DANIEL GARCIA Hospitalization Reason for admission: active labor, IUP - Delivery: Episiotomy: none Laceration: none Other procedures: none complications: none Discharge diagnosis: other (Anemia), delivery baby: female Hospital course: See admission H & P, OB delivery summary and PP progress notes Condition at discharge: Good Disposition: DC-01 TO HOME OR SELFCARE - Discharge Diagnoses (1) delivery Status: Acute (2) Anemia affecting 10th Status: Acute Plan - Discharge Medications Prescriptions: Ferrous Sulfate [Feosol 325 MG tab] 325 mg PO QDAY 30 Days #30 tablet - Provider Discharge Summary Activity: routine, no sex for 6 weeks, no heavy lifting 4 weeks, no strenuous exercise Diet: other (Iron rich diet) Instructions: routine Additional instructions: [] Smoking cessation referral if applicable(refer to patient education folder for contact #) [] Refer to [facility] Booklet Call your doctor immediately for: * Fever > 100.5 * Heavy vaginal bleeding ( >1 pad per hour) * Severe persistent headache * Shortness of breath * Reddened, hot, painful area to leg or breast - Follow up plan Follow up: LUIS DANIEL GARCIA MD [Primary Care Provider] - 6 Weeks
[2019-10-29 16:11] VITALS: BP 110/69
== END 2019-10-29 16:30 | disposition home or self-care (01) | DRG 775 ==
LOC: TRG 18:20 → LD 22:45 → OBSVTOIN 10-15 17:38 → OB 10-27 13:15
PROVIDERS: ADMIT Obstetrics & Gynecology; ATTEND Obstetrics & Gynecology
PROC: 10E0XZZ Delivery of Products of Conception, External Approach (ICD-10-PCS; principal; 2019-10-27)
PROC: 3E0234Z Introduction of Serum, Toxoid and Vaccine into Muscle, Percutaneous Approach (ICD-10-PCS; 2019-10-29)
DX: O76 Abnormality in fetal heart rate and rhythm complicating labor and delivery (principal); O42.912 Preterm premature rupture of membranes, unspecified as to length of time between rupture and onset of labor, second trimester; O99.02 Anemia complicating childbirth; D64.9 Anemia, unspecified; O24.429 Gestational diabetes mellitus in childbirth, unspecified control; Z37.0 Single live birth; Z23 Encounter for immunization; Z88.8 Allergy status to other drugs, medicaments and biological substances; Z3A.25 25 weeks gestation of pregnancy; Z88.6 Allergy status to analgesic agent; Z86.19 Personal history of other infectious and parasitic diseases
CPT/HCPCS: 36415; 76815; 76819; 81001; 82947; 82951; 82962; 83735; 85014; 85018; 85025; 85027; 86592; 86706; 86762; 86850; 86900; 86901; 87086; 87806; 88305; 90471; 90715; G0378; A6250; J0290; J0702; J1200; J2405; J2590; J3010; J3105; J3475; J7120

== ENCOUNTER 2020-08-02 17:24 | Emergency (ER) | payer MEDICAID ==
--- NOTE | 2020-08-02 18:55 | Event Note ---
ED Screening Note Date of service: 08/02/20 Time: 18:54 ED Screening Note: 24-year-old -[place] female presents to the emergency room for 3-day history of cough headache chest pain with deep breath and cough. No fever. Admits to body aches. Positive Covid contact. Has been taken Tylenol. This initial assessment/diagnostic orders/clinical plan/treatment(s) is/are subject to change based on patients health status, clinical progression and re- assessment by fellow clinical providers in the ED. Further treatment and workup at subsequent clinical providers discretion. Patient/guardian urged not to elope from the ED as their condition may be serious if not clinically assessed and managed. Initial orders include:
--- NOTE | 2020-08-02 19:21 | XRay Report ---
CHEST 2 VIEWS INDICATION: cough. COMPARISON: None FINDINGS: Support devices: None. Heart: Within normal limits. Lungs: No acute air space or interstitial disease. Pleura: No significant pleural effusion. No pneumothorax. Additional findings: None. IMPRESSION: 1. No acute findings. Signer Name: Alexx Rice MD Signed: 08/02/2020 7:16 PM Workstation Name: [id number]
--- NOTE | 2020-08-02 21:50 | Emergency Department Report ---
ED General Adult HPI - General Chief complaint: Weakness Stated complaint: CHEST PAIN/COUGH/BODY ACHES Time Seen by Provider: 08/02/20 18:53 Source: patient Mode of arrival: Ambulatory Limitations: No Limitations - History of Present Illness Initial comments: 24-year-old -[place] female presents to the emergency room for 3-day history of cough headache chest pain with deep breath and cough. No fever. Admits to body aches. Positive Covid contact. Has been taken Tylenol. Onset/Timin -: days(s) Severity scale (0 -10): 5 Quality: aching Consistency: intermittent Improves with: none Worsens with: none Associated Symptoms: cough, weakness. denies: diaphoresis, fever/chills, headaches, loss of appetite, rash, shortness of breath Treatments Prior to Arrival: none - Related Data Home Medications Medication Instructions Recorded Confirmed Last Taken Ferrous Sulfate [Feosol] 325 mg PO BID 04/07/18 10/14/19 10/14/19 0800 Vitamin 1 tab PO DAILY 10/12/19 10/14/19 10/14/19 0800 Previous Rx's Medication Instructions Recorded Last Taken Type Ferrous Sulfate [Feosol 325 MG tab] 325 mg PO QDAY 30 Days #30 tablet 10/29/19 Unknown Rx Allergies Allergy/AdvReac Type Severity Reaction Status Date / Time ibuprofen [From Motrin] AdvReac Severe Shortness Verified 04/08/18 09:33 of Breath butorphanol tartrate AdvReac Itching Verified 05/04/17 02:26 [From Stadol] ED Review of Systems ROS: Stated complaint: CHEST PAIN/COUGH/BODY ACHES Other details as noted in HPI Comment: All other systems reviewed and negative ED Past Medical Hx - Past Medical History Hx Hypertension: No Hx Congestive Heart Failure: No Hx Diabetes: No Hx Deep Vein Thrombosis: No Hx Renal Disease: No Hx Sickle Cell Disease: No Hx Seizures: No Hx Asthma: Yes (Childhood, no meds) Hx COPD: No Hx HIV: No Additional medical history: Vaginal dleivery x 2 - Surgical History Additional Surgical History: EYE SURGERY left - Social History Smoking Status: Never Smoker - Medications Home Medications: Home Medications Medication Instructions Recorded Confirmed Last Taken Type Ferrous Sulfate [Feosol] 325 mg PO BID 04/07/18 10/14/19 10/14/19 History 0800 Vitamin 1 tab PO DAILY 10/12/19 10/14/19 10/14/19 History 08 Ferrous Sulfate [Feosol 325 MG tab] 325 mg PO QDAY 30 Days #30 tablet 10/29/19 Unknown Rx ED Physical Exam - General Limitations: No Limitations General appearance: alert, in no apparent distress - Head Head exam: Present: atraumatic, normocephalic - Eye Eye exam: Present: normal appearance - ENT ENT exam: Present: mucous membranes moist - Neck Neck exam: Present: normal inspection - Respiratory Respiratory exam: Present: normal lung sounds bilaterally. Absent: respiratory distress, chest wall tenderness - Cardiovascular Cardiovascular Exam: Present: regular rate, normal rhythm. Absent: systolic murmur, diastolic murmur, rubs, gallop - GI/Abdominal GI/Abdominal exam: Present: soft, normal bowel sounds - Extremities Exam Extremities exam: Present: normal inspection - Back Exam Back exam: Present: normal inspection - Neurological Exam Neurological exam: Present: alert, oriented X3 - Psychiatric Psychiatric exam: Present: normal affect, normal mood - Skin Skin exam: Present: warm, dry, intact, normal color. Absent: rash ED Course Vital Signs 08/02/20 17:28 Temperature 98.3 F Pulse Rate 103 H Respiratory 16 Rate Blood Pressure 118/78 [Left] O2 Sat by Pulse 95 Oximetry ED Medical Decision Making - Radiology Data Radiology results: report reviewed Referring Physician:KENNEDY GUPatient Name:AKILA CANADAPatient ID:[id number] of :[id number]:FemaleAccession:[id number] Date:7900-98-10Qzkhmt Status:Finalized Findings [address] [address] XRay Report Signed Patient: AKILA CANADA MR#: [id number] : 1995 Acct:[id number] Age/Sex: 24 / F ADM Date: 08/02/20 Loc: ED Attending Dr: Ordering Physician: PREET GARCIA Date of Service: 08/02/20 Procedure(s): XR chest routine 2V Accession Number(s): [id number] cc: PREET GARCIA Fluoro Time In Minutes: CHEST 2 VIEWS INDICATION: cough. COMPARISON: None FINDINGS: Support devices: None. Heart: Within normal limits. Lungs: No acute air space or interstitial disease. Pleura: No significant pleural effusion. No pneumothorax. Additional findings: None. IMPRESSION: 1. No acute findings. Signer Name: Alexx Rice MD Signed: 08/02/2020 7:16 PM Workstation Name: [id number] Transcribed By: WG Dictated By: Alexx Rice MD Electronically Authenticated By: Alexx Rcie MD Signed Date/Time: 08/02/201915 DD/ 15 TD/TT: - Medical Decision Making 24-year-old -[place] female presents to the emergency room for 3-day history of cough headache chest pain with deep breath and cough. No fever. Admits to body aches. Positive Covid contact. Has been taken Tylenol. Chest x-ray is negative for any acute findings. Discussed with patient to take [id number] Robitussin for cough ibuprofen or Tylenol for body aches and to increase her water and fluid intake. Also recommend patient to get Covid testing. Critical care attestation.: If time is entered above; I have spent that time in minutes in the direct care of this critically ill patient, excluding procedure time. ED Disposition Clinical Impression: Viral syndrome Disposition: DC-01 TO HOME OR SELFCARE Is pt being admited?: No Does the pt Need Aspirin: No Condition: Stable Additional Instructions: Your symptoms appear most consistent with a nonspecific viral syndrome. However, given this current pandemic, COVID-19 is in the differential of possibilities. Despite your previous negative COVID-19 test, I do recommend repeat outpatient Covid 19 testing. In the meantime, isolate/quarantine yourself and stay away from anyone who is elderly, immunocompromised or ch ronically ill. You can use ibuprofen every 6-8 hours and Tylenol every 4-8 hours, using the dosing on the back of the bottle, as needed for any fever or body aches. Return to the emergency department with any worsening of your symptoms, development of chest pain or shortness of breath, or with any acute distress. Referrals: SRIDHAR ZARATE JR, MD [Staff Physician] - 3-5 Days Forms: Work/School Release Form(ED)
[2020-08-02 22:25] VITALS: BP 120/68
== END 2020-08-02 22:22 | disposition home or self-care (01) ==
LOC: ED 17:24
DX: B34.9 Viral infection, unspecified (principal); J45.909 Unspecified asthma, uncomplicated; Z98.890 Other specified postprocedural states; Z79.899 Other long term (current) drug therapy; Z88.8 Allergy status to other drugs, medicaments and biological substances
CPT/HCPCS: 71046